=== PATIENT | female | born 1935 | race Caucasian/White ===

== ENCOUNTER 2016-11-04 09:49 | Emergency (ER) | payer MEDICARE ==
[~2016-11-04] VITALS: Ht 170.2 cm; Wt 54.4 kg
[~2016-11-04 09:49] MED LIST: CHOL10003 PO; LISI-334 PO; MEMA10TA PO; SERT100T8 PO
[2016-11-04] MEDS ORDERED: IV NORMAL SALINE 500ML BAG 500 ML IV ONE (11:15)
[2016-11-04] MEDS ORDERED: ONDANSETRON PF 4 MG/2 ML VIAL. IV ONE (11:15)
[2016-11-04 11:17] LABS: BILIRUBIN,URINE NEGATIVE (NEG); GLUCOSE,URINE NEGATIVE (NEG); NITRITE,URINE NEGATIVE (NEG); PROTEIN,URINE 100 mg/dL (NEG-TRACE); UROBILINOGEN,URINE 0.2 mg/dL (0.2 mg/dL)
--- NOTE | 2016-11-04 11:18 | PHYS DOC ---
Past Medical History Past Medical History: Dementia Past Surgical History: Cholecystectomy Alcohol Use: None Drug Use: None Adult General Chief Complaint Chief Complaint: NAUSEA/VOMITING/DIARRHA HPI HPI Patient is a 81 year old female who presents with , and children for evaluation of nausea, vomiting and diarrhea over the past 2 days. She also has fatigue, general weakness, and mild lightheadedness upon standing. She has had nonbloody nonbilious emesis and nonbloody diarrhea. She denies cough, chest pain , headache, vision changes, resting dizziness, dyspnea, abdominal pain, dysuria. She was noted to have 4 Exelon patches on her back upon nursing triage. states he placed fourth one last night and these were sequentially placed over the past 4 nights. He states these were left on because she sometimes gets too agitated for him to pull them off. Review of Systems Review of Systems Constitutional: Denies fever or chills [] Eyes: Denies change in visual acuity, redness, or eye pain [] HENT: Denies nasal congestion or sore throat [] Respiratory: Denies cough or shortness of breath [] Cardiovascular: No additional information not addressed in HPI [] GI: Denies abdominal pain, bloody stools or bloody emesis [] : Denies dysuria or hematuria [] Musculoskeletal: Denies back pain or joint pain [] Integument: Denies rash or skin lesions [] Neurologic: Denies headache, focal weakness or sensory changes [] Endocrine: Denies polyuria or polydipsia [] Current Medications Current Medications Current Medications Medications (Trade) Dose Ordered Sig/Robin Start Time Stop Time Status Last Admin Dose Admin Lisinopril (Prinivil) 20 mg 1X ONCE 11/04/16 11:45 11/04/16 11:46 DC 11/04/16 11:42 20 MG Ondansetron HCl 4 mg 4 mg 1X ONCE 11/04/16 11:15 11/04/16 11:16 DC 11/04/16 11:25 4 MG Sodium Chloride (Iv Sodium Chloride 0.9% 500ml Bag) 500 ml @ 500 mls/hr 1X ONCE 11/04/16 11:15 11/04/16 12:14 DC 11/04/16 11:25 500 MLS/HR Allergies Allergies Allergies Coded Allergies Type Severity Reaction Last Updated Verified No Known Drug Allergies 08/11/16 No Physical Exam Physical Exam Constitutional: Well developed, well nourished, no acute distress, non-toxic appearance. [] HENT: Normocephalic, atraumatic, bilateral external ears normal, oropharynx moist, nose normal. [] Eyes: PERRLA, EOMI. [] Neck: Normal range of motion, supple. [] Cardiovascular:Heart rate regular rhythm [] Lungs & Thorax: Bilateral breath sounds clear to auscultation [] Abdomen: Bowel sounds normal, soft, no tenderness. [] Skin: Warm, dry, no erythema, no rash. [] Back: No tenderness, no CVA tenderness. [] Extremities: No tenderness, ROM intact, no edema. [] Neurologic: Alert and oriented to self and situation, normal motor function, normal sensory function, no focal deficits noted. [] Psychologic: Affect normal, judgement normal, mood normal. [] Current Patient Data Vital Signs Vital Signs Date Time Temp Pulse Resp B/P Pulse Ox O2 Delivery O2 Flow Rate FiO2 11/04/16 13:52 113 217/103 94 11/04/16 11:30 18 11/04/16 10:45 97.9 Room Air 97.9 Lab Values Laboratory Tests Test 11/04/16 10:37 11/04/16 11:00 11/04/16 11:15 Influenza Type A Antigen Negative (NEGATIVE) Influenza Type B Antigen Negative (NEGATIVE) Urine Collection Type Unknown Urine Color Yellow Urine Clarity Clear Urine pH 6.0 Urine Specific [place] 1.020 Urine Protein 100mg/dL (NEG-TRACE) Urine Glucose (UA) Negativemg/dL (NEG) Urine Ketones (Stick) Negativemg/dL (NEG) Urine Blood Negative (NEG) Urine Nitrite Negative (NEG) Urine Bilirubin Negative (NEG) Urine Urobilinogen Dipstick 0.2mg/dL (0.2 mg/dL) Urine Leukocyte Esterase Negative (NEG) Urine RBC Rare/HPF (0-2) Urine WBC 1-4/HPF (0-4) Urine Squamous Epithelial Cells Few/LPF Urine Bacteria Few/HPF (0-FEW) Urine Mucus Mod/LPF White Blood Count 12.1x10^3/uL (4.0-11.0) H Red Blood Count 4.96x10^6/uL (3.50-5.40) Hemoglobin 14.7g/dL (12.0-15.5) Hematocrit 43.3% (36.0-47.0) Mean Corpuscular Volume 87fL (79-100) Mean Corpuscular Hemoglobin 30pg (25-35) Mean Corpuscular Hemoglobin Concent 34g/dL (31-37) Red Cell Distribution Width 14.3% (11.5-14.5) Platelet Count 184x10^3/uL (140-400) Neutrophils (%) (Auto) 87% (31-73) H Lymphocytes (%) (Auto) 9% (24-48) L Monocytes (%) (Auto) 4% (0-9) Eosinophils (%) (Auto) 0% (0-3) Basophils (%) (Auto) 1% (0-3) Neutrophils # (Auto) 10.5x10^3uL (1.8-7.7) H Lymphocytes # (Auto) 1.1x10^3/uL (1.0-4.8) Monocytes # (Auto) 0.5x10^3/uL (0.0-1.1) Eosinophils # (Auto) 0.0x10^3/uL (0.0-0.7) Basophils # (Auto) 0.1x10^3/uL (0.0-0.2) Segmented Neutrophils % 83% (35-66) H Band Neutrophils % 9% (0-9) Lymphocytes % 8% (24-48) L Toxic Granulation Slight Platelet Estimate Adequate (ADEQUATE) Sodium Level 144mmol/L (136-145) Potassium Level 3.5mmol/L (3.5-5.1) Chloride Level 105mmol/L (98-107) Carbon Dioxide Level 29mmol/L (21-32) Anion Gap 10 (6-14) Blood Urea Nitrogen 9mg/dL (7-20) Creatinine 0.9mg/dL (0.6-1.0) Estimated GFR (Cockcroft-Gault) 60.1 Glucose Level 141mg/dL (70-99) H Calcium Level 9.0mg/dL (8.5-10.1) Total Bilirubin 0.6mg/dL (0.2-1.0) Direct Bilirubin 0.1mg/dL (0.0-0.2) Aspartate Amino Transferase (AST) 24U/L (15-37) Alanine Aminotransferase (ALT) 27U/L (14-59) Alkaline Phosphatase 89U/L (46-116) Total Protein 7.6g/dL (6.4-8.2) Albumin 3.7g/dL (3.4-5.0) Lipase 193U/L (73-393) Laboratory Tests 11/04/16 11:15 Laboratory Tests 11/04/16 11:15 Course & Med Decision Making Course & Med Decision Making Pertinent Labs and Imaging studies reviewed. (See chart for details) She is feeling better while here. Workup is unremarkable. She is tolerating oral intake and ambulatory in dept. Discussed importance of removing old medication patches to avoid possible medication overdose. Return precautions given. Pt and family understand and agree with plan. Dragon Disclaimer Dragon Disclaimer This electronic medical record was generated, in whole or in part, using a voice recognition dictation system. Departure Departure Impression: Primary Impression: Nausea vomiting and diarrhea Disposition: 01 HOME, SELF-CARE Condition: IMPROVED Referrals: LUCHO MINER MD (PCP) Patient Instructions: Nausea and Vomiting, [id number] Additional Instructions: Drink liquids to stay hydrated. Follow up with your primary care doctor. Return for any concerns. Dashawn BALLESTEROS MD Nov 04, 2016 11:18
[2016-11-04 11:24] LABS: BASO # 0.1 x10^3/uL (0.0-0.2); BASO % 1 % (0-3); EOS % 0 % (0-3); HEMATOCRIT 43.3 % (36.0-47.0); HEMOGLOBIN 14.7 g/dL (12.0-15.5); LYMPH # 1.1 x10^3/uL (1.0-4.8); LYMPH % 9 % (24-48); MEAN CORPUSCULAR HEMOGLOBIN 30 pg (25-35); MEAN CORPUSCULAR HGB CONC 34 g/dL (31-37); MEAN CORPUSCULAR VOLUME 87 fL (79-100); MONO % 4 % (0-9); NEUT % 87 % (31-73); PLATELET COUNT 184 x10^3/uL (140-400); RED BLOOD COUNT 4.96 x10^6/uL (3.50-5.40); RED CELL DISTRIBUTION WIDTH 14.3 % (11.5-14.5); WHITE BLOOD COUNT 12.1 x10^3/uL (4.0-11.0)
[2016-11-04 11:32] LABS: BACTERIA,URINE FEW /HPF (0-FEW); RBC,URINE RARE /HPF (0-2); SQUAMOUS EPITHELIAL CELL,UR FEW /LPF
[2016-11-04 11:39] LABS: CREATININE 0.9 mg/dL (0.6-1.0); GFR 60.1; POTASSIUM 3.5 mmol/L (3.5-5.1)
[2016-11-04 11:45] LABS: ALBUMIN 3.7 g/dL (3.4-5.0); DIRECT BILIRUBIN 0.1 mg/dL (0.0-0.2); TOTAL BILIRUBIN 0.6 mg/dL (0.2-1.0); TOTAL PROTEIN 7.6 g/dL (6.4-8.2)
[2016-11-04] MEDS ORDERED: LISINOPRIL 10 MG TABLET PO ONE (11:45)
[2016-11-04 12:48] LABS: OBC FLU VALID
[2016-11-04 13:52] VITALS: BP 217/103
[2016-11-04 14:27] LABS: PLT ESTIMATE ADEQUATE (ADEQUATE); TOXIC GRANULATION SLIGHT
== END 2016-11-04 13:53 | disposition home or self-care (01) ==
LOC: ER 09:49
DX: R11.2 Nausea with vomiting, unspecified (principal); R19.7 Diarrhea, unspecified; R53.1 Weakness; R42 Dizziness and giddiness; F03.90 Unspecified dementia, unspecified severity, without behavioral disturbance, psychotic disturbance, mood disturbance, and anxiety; Z90.49 Acquired absence of other specified parts of digestive tract
CPT/HCPCS: 36415; 80048; 80076; 81001; 83690; 85007; 85027; 87804; 96361; 96374; 99284; J2405; J7040

== ENCOUNTER 2019-01-18 09:22 | Inpatient (IN) | payer MEDICARE ==
[~2019-01-18] VITALS: Ht 167.6 cm; Wt 49.0 kg
--- NOTE | 2019-01-18 09:56 | PHYS DOC ---
Past Medical History Past Medical History: Dementia, Hypertension Past Surgical History: Cholecystectomy Alcohol Use: None Drug Use: None Adult General Chief Complaint Chief Complaint: WEAKNESS/GENERALIZED HPI HPI Patient is a 83 year old female with history of dementia who brought in by EMS because of weakness. Patient home caregiver stated she has had increasing generalized weakness for the last 1 week and had 3 falls without loss of consciousness and had right sided weakness that getting worse after she saw her this morning at 0800. Patient did not eat and drink like her usual. Patient has dementia and is alert and oriented 1. Review of Systems Review of Systems Unable to obtain because of dementia Current Medications Current Medications Current Medications Medications (Trade) Dose Ordered Sig/Robin Start Time Stop Time Status Last Admin Dose Admin Ceftriaxone Sodium (Rocephin) 1 gm 1X ONCE 01/18/19 10:30 01/18/19 10:31 DC 01/18/19 10:30 1 GM Sodium Chloride 1,000 ml @ 1,000 mls/hr 1X ONCE 01/18/19 10:30 01/18/19 11:29 DC 01/18/19 10:30 1,000 MLS/HR Allergies Allergies Allergies Coded Allergies Type Severity Reaction Last Updated Verified No Known Drug Allergies 08/11/16 No Physical Exam Physical Exam Constitutional: Mild distress, non-toxic appearance. [] HENT: Normocephalic, atraumatic Eyes: PERRLA, EOMI, conjunctiva normal, no discharge. [] Neck: Normal range of motion, no tenderness, supple, no stridor. [] Cardiovascular:Heart rate regular rhythm, no murmur [] Lungs & Thorax: Bilateral breath sounds clear to auscultation [] Abdomen: Bowel sounds normal, soft, no tenderness, no masses, no pulsatile masses. [] Skin: Warm, dry, no erythema, no rash. [] Back: No tenderness, no CVA tenderness. [] Extremities: Right shoulder old ecchymoses with mild tenderness , no cyanosis, no clubbing, ROM intact, no edema. [] Neurologic: Alert and oriented X 1, normal motor function, normal sensory function, no focal deficits noted. [] Psychologic: Affect depressed Current Patient Data Vital Signs Vital Signs Date Time Temp Pulse Resp B/P (MAP) Pulse Ox O2 Delivery O2 Flow Rate FiO2 01/18/19 10:11 98.3 83 16 186/75 (112) 97 Room Air 98.3 Lab Values Laboratory Tests Test 01/18/19 09:47 01/18/19 10:35 White Blood Count 10.9 x10^3/uL (4.0-11.0) Red Blood Count 4.49 x10^6/uL (3.50-5.40) Hemoglobin 13.6 g/dL (12.0-15.5) Hematocrit 39.8 % (36.0-47.0) Mean Corpuscular Volume 89 fL (79-100) Mean Corpuscular Hemoglobin 30 pg (25-35) Mean Corpuscular Hemoglobin Concent 34 g/dL (31-37) Red Cell Distribution Width 13.9 % (11.5-14.5) Platelet Count 209 x10^3/uL (140-400) Neutrophils (%) (Auto) 92 % (31-73) H Lymphocytes (%) (Auto) 5 % (24-48) L Monocytes (%) (Auto) 3 % (0-9) Eosinophils (%) (Auto) 0 % (0-3) Basophils (%) (Auto) 0 % (0-3) Neutrophils # (Auto) 10.0 x10^3uL (1.8-7.7) H Lymphocytes # (Auto) 0.5 x10^3/uL (1.0-4.8) L Monocytes # (Auto) 0.4 x10^3/uL (0.0-1.1) Eosinophils # (Auto) 0.0 x10^3/uL (0.0-0.7) Basophils # (Auto) 0.0 x10^3/uL (0.0-0.2) Segmented Neutrophils % 92 % (35-66) H Band Neutrophils % 2 % (0-9) Lymphocytes % 4 % (24-48) L Monocytes % 2 % (0-10) Platelet Estimate Adequate (ADEQUATE) Prothrombin Time 13.5 SEC (11.7-14.0) Prothrombin Time INR 1.1 (0.8-1.1) Sodium Level 144 mmol/L (136-145) Potassium Level 3.9 mmol/L (3.5-5.1) Chloride Level 105 mmol/L (98-107) Carbon Dioxide Level 26 mmol/L (21-32) Anion Gap 13 (6-14) Blood Urea Nitrogen 10 mg/dL (7-20) Creatinine 1.2 mg/dL (0.6-1.0) H Estimated GFR (Cockcroft-Gault) 42.9 BUN/Creatinine Ratio 8 (6-20) Glucose Level 189 mg/dL (70-99) H Lactic Acid Level 2.2 mmol/L (0.4-2.0) H Calcium Level 9.1 mg/dL (8.5-10.1) Magnesium Level 2.0 mg/dL (1.8-2.4) Total Bilirubin 0.7 mg/dL (0.2-1.0) Aspartate Amino Transferase (AST) 28 U/L (15-37) Alanine Aminotransferase (ALT) 19 U/L (14-59) Alkaline Phosphatase 74 U/L (46-116) Creatine Kinase 344 U/L (26-192) H Troponin I Quantitative 0.175 ng/mL (0.000-0.055) JS-Pjr-M-Type Natriuretic Peptide 2332 pg/mL (0-449) H Total Protein 6.7 g/dL (6.4-8.2) Albumin 3.7 g/dL (3.4-5.0) Albumin/Globulin Ratio 1.2 (1.0-1.7) Lipase 60 U/L (73-393) L 25-Hydroxy Vitamin D Total 66.8 ng/mL (30-100) Urine Collection Type U cath Urine Color Yellow Urine Clarity Clear Urine pH 6.5 Urine Specific [place] 1.020 Urine Protein 100 mg/dL (NEG-TRACE) Urine Glucose (UA) Negative mg/dL (NEG) Urine Ketones (Stick) Trace mg/dL (NEG) Urine Blood Trace (NEG) Urine Nitrite Negative (NEG) Urine Bilirubin Negative (NEG) Urine Urobilinogen Dipstick 1.0 mg/dL (0.2 mg/dL) Urine Leukocyte Esterase Negative (NEG) Urine RBC Occ /HPF (0-2) Urine WBC 5-10 /HPF (0-4) Urine Amorphous Sediment Present /HPF Urine Bacteria Few /HPF (0-FEW) Urine Hyaline Casts Few /HPF Urine Mucus Mod /LPF Laboratory Tests 01/18/19 09:47 Laboratory Tests 01/18/19 09:47 Microbiology 01/18/19 Blood Culture - Final, Complete NO GROWTH AFTER 5 DAYS EKG EKG EKG interpreted by me. EKG at 1026 showed normal sinus rhythm at rate of 86, normal MN and QT intervals, poor R-wave progress in anterolateral leads, no acute ST and T-wave abnormalities. Radiology/Procedures Radiology/Procedures [][facility] [address] [place] [id number] IMAGING REPORT Signed PATIENT: ANIKA JENNINGS ACCOUNT: [id number] : 1935 LOCATION: ER AGE: 83 SEX: F EXAM STATUS: REG ER ORD. PHYSICIAN: MATHIEU TOURE MD REASON: right-sided weakness PROCEDURE: CHEST AP ONLY Chest radiograph 01/18/2019 9:41 AM INDICATION: Right-sided weakness COMPARISON: None available TECHNIQUE: Portable upright frontal view of the chest is provided. FINDINGS: The cardiomediastinal silhouette is within normal limits. There is trace right pleural effusion. No pulmonary vascular congestion or pneumothorax. Right lung apex is obscured by the neck soft tissues. No definite pneumothorax. Focal sclerosis is identified along the anterior margin of the anterior right seventh rib. No significant osseous abnormality is identified. IMPRESSION: Trace right pleural effusion. There may be adjacent compressive atelectasis versus infiltrate. Electronically signed by: Neda Matias MD (01/18/2019 10:14 AM) [id number] DICTATED and SIGNED BY: NEDA MATIAS MD DATE: 01/18/[address] [id number] IMAGING REPORT Signed PATIENT: ANIKA JENNINGS ACCOUNT: [id number] : 1935 LOCATION: ER AGE: 83 SEX: F EXAM STATUS: REG ER ORD. PHYSICIAN: MATHIEU TOURE MD REASON: right-sided weakness. POOR HISTORIAN PROCEDURE: CT HEAD AND CERVICAL SPINE WO PQRS Compliance Statement: One or more of the following individualized dose reduction techniques were utilized for this examination: 1. Automated exposure control 2. Adjustment of the mA and/or kV according to patient size 3. Use of iterative reconstruction technique CT head and cervical spine without contrast 01/18/2019 9:41 AM INDICATION: Right-sided weakness COMPARISON: None available TECHNIQUE: Multiple axial CT images of the head were obtained from skull base through the vertex without intravenous contrast. Multiple axial CT images of the cervical spine were obtained without intravenous contrast. Coronal and sagittal reformats are provided. FINDINGS: Head: Ventricles, sulci and basal cisterns are prominent compatible with mild generalized cerebral volume loss. There is no hydrocephalus. Lilly-white matter differentiation is normal. There is no acute intracranial hemorrhage. There is no mass, mass effect or midline shift. Posterior fossa is normal in appearance. Visualized portions of the orbits are normal with exception of left lens replacement. Paranasal sinuses are well aerated. Mastoid air cells are well aerated. Scalp and calvaria are normal. Cervical spine: There is minimal retrolisthesis of C3 on C4. Skull base is intact. Craniocervical junction is normal in appearance. Atlantoaxial articulation is normal. Vertebral body heights are maintained without evidence for acute fracture. At C3-C4, there is a posterior disc osteophyte complex with moderate facet arthropathy and mild right uncovertebral joint disease. Mild bilateral neuroforaminal stenosis. No spinal canal stenosis. At C4-C5, there is a posterior disc osteophyte complex with central calcified disc protrusion. Moderate right and mild left facet arthropathy. Mild right uncovertebral joint disease. Mild bilateral neuroforaminal stenosis. No spinal canal stenosis. At C5-C6, there is a posterior disc osteophyte complex with central disc protrusion. Moderate facet arthropathy. Mild uncovertebral joint disease. Moderate bilateral neuroforaminal stenosis. No spinal canal stenosis. There is no prevertebral soft tissue swelling. Left thyroid nodule measures 17 mm. Visualized portions of the lung apices are normal without evidence for suspicious pulmonary nodule or infiltrate. IMPRESSION: 1. No acute intracranial hemorrhage. 2. No acute fracture of the cervical spine. Minimal retrolisthesis of C3 on C4, nonspecific. Mild cervical spondylosis. 3. There is a 17 mm left thyroid nodule. Nonemergent thyroid ultrasound is recommended for further evaluation. Electronically signed by: Neda Matias MD (01/18/2019 10:38 AM) [id number] DICTATED and SIGNED BY: NEDA MATIAS MD DATE: 05/07/19 1038 Course & Med Decision Making Course & Med Decision Making Pertinent Labs and Imaging studies reviewed. (See chart for details) Evaluation of patient in ER showed 83-year-old female patient with history of dementia and increasing generalized weakness and frequent falls brought in with right-sided weakness. Patient did not have focal neuro deficit. CT head did not show acute finding. Patient had elevation of lactic acid and UTI. Patient requiring admission for further evaluation and treatment. Discussed with Dr. [place] who is in agreement with admission. Discussed findings and plan with patient and family, who acknowledge understanding and agreement. Dragon Disclaimer Dragon Disclaimer This electronic medical record was generated, in whole or in part, using a voice recognition dictation system. Departure Departure Impression: Primary Impression: Sepsis Additional Impressions: Weakness Urinary tract infection Elevated troponin I level Frequent falls Renal insufficiency CHF (congestive heart failure) Dementia Elevated blood pressure reading Disposition: ADMITTED INPATIENT (@1111) Admitting Physician: Monica Kapadia (accepted admission at 1110) Condition: IMPROVED Referrals: LUCHO MINER MD (PCP) Scripts Lisinopril (LISINOPRIL) 40 Mg Tablet 40 MG PO DAILY for htn MDD 1, #30 TAB Prov: MONICA KAPADIA MD 01/19/19 Lidocaine (Lidocaine) 1 Each Adh..patch 1 PATCH TD DAILY for pain msk MDD 1, #10 PATCH Prov: MONICA KAPADIA MD 01/19/19 Ascorbic Acid (VITAMIN C) 500 Mg Tablet 500 MG PO DAILY for mvi MDD 1, #30 TAB Prov: MONICA KAPADIA MD 01/19/19 Aspirin (ASPIRIN EC) 81 Mg Tablet. 81 MG PO DAILYWBKFT for primary prevention MDD 1, #60 TAB.SR Prov: MONICA KAPADIA MD 01/19/19 Hydrocodone Bit/Acetaminophen (HYDROCODONE-APAP 5-325 ) 1 Tab Tablet 1 TAB PO PRN Q4HRS PRN for MODERATE PAIN, SEVERE PAIN MDD 1, #20 TAB Prov: MONICA KAPADIA MD 01/19/19 Metoprolol Succinate (METOPROLOL SUCCINATE ( XL )) 25 Mg Tab.er.24h 12.5 MG PO DAILY for htn, svt,.now christina MDD 1, #60 TAB.SR Prov: MONICA KAPADIA MD 01/19/19 Problem Qualifiers Primary Impression: Sepsis Sepsis type: sepsis due to unspecified organism Qualified Codes: A41.9 - Sepsis, unspecified organism Additional Impressions: Urinary tract infection Urinary tract infection type: site unspecified Hematuria presence: without hematuria Qualified Codes: N39.0 - Urinary tract infection, site not specified CHF (congestive heart failure) Heart failure type: unspecified Heart failure chronicity: unspecified Qualified Codes: I50.9 - Heart failure, unspecified Dementia Dementia type: unspecified type Dementia behavioral disturbance: without behavioral disturbance Qualified Codes: F03.90 - Unspecified dementia without behavioral disturbance MATHIEU TOURE MD January 18, 2019 09:56
[2019-01-18 10:04] LABS: BASO % 0 % (0-3); EOS % 0 % (0-3); HEMATOCRIT 39.8 % (36.0-47.0); HEMOGLOBIN 13.6 g/dL (12.0-15.5); LYMPH # 0.5 x10^3/uL (1.0-4.8); LYMPH % 5 % (24-48); MEAN CORPUSCULAR HEMOGLOBIN 30 pg (25-35); MEAN CORPUSCULAR HGB CONC 34 g/dL (31-37); MEAN CORPUSCULAR VOLUME 89 fL (79-100); MONO # 0.4 x10^3/uL (0.0-1.1); MONO % 3 % (0-9); NEUT % 92 % (31-73); PLATELET COUNT 209 x10^3/uL (140-400); RED BLOOD COUNT 4.49 x10^6/uL (3.50-5.40); RED CELL DISTRIBUTION WIDTH 13.9 % (11.5-14.5); WHITE BLOOD COUNT 10.9 x10^3/uL (4.0-11.0)
--- NOTE | 2019-01-18 10:15 | RAD ---
SHOULDER 2+V RIGHT 01/18/2019 9:41 AM INDICATION: Right-sided weakness. Bruising in the right shoulder after fall COMPARISON: None available. TECHNIQUE: 3 views of the right shoulder are provided. FINDINGS: There is no acute fracture or dislocation. Mineralization along the superolateral aspect of the right humeral head may reflect calcific tendinitis. Bone mineralization is within normal limits. Joint spaces are maintained. Regional soft tissues are within normal limits. There is no soft tissue gas or osseous erosion. IMPRESSION: No acute fracture or dislocation. Mineralization along the superolateral aspect of the right humeral head may reflect calcific tendinitis. Electronically signed by: Kamala Britt MD (01/18/2019 10:13 AM) [id number]
[2019-01-18 10:16] LABS: CALCIUM 9.1 mg/dL (8.5-10.1); CREATININE 1.2 mg/dL (0.6-1.0); GFR 42.9; POTASSIUM 3.9 mmol/L (3.5-5.1)
--- NOTE | 2019-01-18 10:17 | RAD ---
Chest radiograph 01/18/2019 9:41 AM INDICATION: Right-sided weakness COMPARISON: None available TECHNIQUE: Portable upright frontal view of the chest is provided. FINDINGS: The cardiomediastinal silhouette is within normal limits. There is trace right pleural effusion. No pulmonary vascular congestion or pneumothorax. Right lung apex is obscured by the neck soft tissues. No definite pneumothorax. Focal sclerosis is identified along the anterior margin of the anterior right seventh rib. No significant osseous abnormality is identified. IMPRESSION: Trace right pleural effusion. There may be adjacent compressive atelectasis versus infiltrate. Electronically signed by: Kamala Britt MD (01/18/2019 10:14 AM) [facility]
[2019-01-18 10:20] LABS: PROTHROMBIN TIME PATIENT 13.5 SEC (11.7-14.0)
[2019-01-18 10:22] LABS: ALBUMIN 3.7 g/dL (3.4-5.0); ALBUMIN/GLOBULIN RATIO 1.2 (1.0-1.7); TOTAL BILIRUBIN 0.7 mg/dL (0.2-1.0); TOTAL PROTEIN 6.7 g/dL (6.4-8.2)
[2019-01-18] MEDS ORDERED: cefTRIAXone IV Push 1 GM VIAL. IVP ONE (10:30)
[2019-01-18] MEDS ORDERED: IV NORMAL SALINE 1000ML BAG 1,000 ML IV ONE (10:30)
--- NOTE | 2019-01-18 10:41 | RAD ---
PQRS Compliance Statement: One or more of the following individualized dose reduction techniques were utilized for this examination: 1. Automated exposure control 2. Adjustment of the mA and/or kV according to patient size 3. Use of iterative reconstruction technique CT head and cervical spine without contrast 01/18/2019 9:41 AM INDICATION: Right-sided weakness COMPARISON: None available TECHNIQUE: Multiple axial CT images of the head were obtained from skull base through the vertex without intravenous contrast. Multiple axial CT images of the cervical spine were obtained without intravenous contrast. Coronal and sagittal reformats are provided. FINDINGS: Head: Ventricles, sulci and basal cisterns are prominent compatible with mild generalized cerebral volume loss. There is no hydrocephalus. Lilly-white matter differentiation is normal. There is no acute intracranial hemorrhage. There is no mass, mass effect or midline shift. Posterior fossa is normal in appearance. Visualized portions of the orbits are normal with exception of left lens replacement. Paranasal sinuses are well aerated. Mastoid air cells are well aerated. Scalp and calvaria are normal. Cervical spine: There is minimal retrolisthesis of C3 on C4. Skull base is intact. Craniocervical junction is normal in appearance. Atlantoaxial articulation is normal. Vertebral body heights are maintained without evidence for acute fracture. At C3-C4, there is a posterior disc osteophyte complex with moderate facet arthropathy and mild right uncovertebral joint disease. Mild bilateral neuroforaminal stenosis. No spinal canal stenosis. At C4-C5, there is a posterior disc osteophyte complex with central calcified disc protrusion. Moderate right and mild left facet arthropathy. Mild right uncovertebral joint disease. Mild bilateral neuroforaminal stenosis. No spinal canal stenosis. At C5-C6, there is a posterior disc osteophyte complex with central disc protrusion. Moderate facet arthropathy. Mild uncovertebral joint disease. Moderate bilateral neuroforaminal stenosis. No spinal canal stenosis. There is no prevertebral soft tissue swelling. Left thyroid nodule measures 17 mm. Visualized portions of the lung apices are normal without evidence for suspicious pulmonary nodule or infiltrate. IMPRESSION: 1. No acute intracranial hemorrhage. 2. No acute fracture of the cervical spine. Minimal retrolisthesis of C3 on C4, nonspecific. Mild cervical spondylosis. 3. There is a 17 mm left thyroid nodule. Nonemergent thyroid ultrasound is recommended for further evaluation. Electronically signed by: Kamala Britt MD (01/18/2019 10:38 AM) [email or web address]
[2019-01-18 10:45] LABS: BILIRUBIN,URINE NEGATIVE (NEG); CLARITY,URINE CLEAR; COLOR,URINE YELLOW; NITRITE,URINE NEGATIVE (NEG); PH,URINE 6.5; PROTEIN,URINE 100 mg/dL (NEG-TRACE)
[2019-01-18 11:01] LABS: HYALINE CASTS, URINE FEW /HPF
[2019-01-18 11:02] LABS: AMORPHOUS SEDIMENT,UR PRESENT /HPF; BACTERIA,URINE FEW /HPF (0-FEW)
[2019-01-18 11:03] LABS: RBC,URINE OCC /HPF (0-2)
[2019-01-18] MEDS: IV NORMAL SALINE 1000ML BAG 1,000 ML IV SCH ×2 (11:30→21:20)
[2019-01-18 11:40] LABS: % BANDS 2 % (0-9); % LYMPHS 4 % (24-48); % MONOS 2 % (0-10); % SEGS 92 % (35-66)
[2019-01-18 11:41] LABS: PLT ESTIMATE ADEQUATE (ADEQUATE)
--- NOTE | 2019-01-18 11:57 | EKG ---
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
[2019-01-18 12:41] VITALS: BP 148/108
--- NOTE | 2019-01-18 13:29 | PDOC1 ---
History and Physical Date of Admission Date of Admission DATE: 01/18/19 TIME: 13:23 Identification/Chief Complaint Chief Complaint Fall frequent at home by 24-hour Hired caregiver Source Source: Caregiver, Chart review, Patient History of Present Illness History of Present Illness 83-year-old female who lives at home and needs 1 person assist and verbal queuing for feeding, they have a hired 24-hour care help,or home health RN who noticed patient to be falling multiple times. Today she was leaning to the right side falling and could not get up after the fall. She has advanced dementia. She might be a DNR/DNI but family at bedside could not verify with me the code status for sure, they will be looking at papers at home. She does have significant osteoporosis based on imaging and per family relay. Shoulder pain but no acute fracture there. Some cervical retrolisthesis and disc bulges but no fracture. CT head shows cerebral atrophy consistent with Alzheimer's dementia. LAbs ok,. Chest x-ray shows maybe atelectasis. Right hip hurts it is sore, not on any blood thinners. Blood pressure on the high side on blood pressure meds. We will check a hip x-ray and go from there. Discussed with family members and RN Past Medical History Cardiovascular: HTN, Hyperlipidemia CENTRAL NERVOUS SYSTEM: Dementia Musculoskeletal: Other (osteoporosis) Past Surgical History Past Surgical History: No pertinent history Family History Family History: Family History Unknown Social History Smoke: No ALCOHOL: none Drugs: None Current Problem List Problem List Problems Medical Problems: (1) CHF (congestive heart failure) Status: Acute (2) Dementia Status: Acute (3) Elevated blood pressure reading Status: Acute (4) Elevated troponin I level Status: Acute (5) Frequent falls Status: Acute (6) Renal insufficiency Status: Acute (7) Urinary tract infection Status: Acute Current Medications Current Medications Current Medications Sodium Chloride 1,000 ml @ 1,000 mls/hr 1X ONCE IV Last administered on 01/18/19at 10:30; Start 01/18/19 at 10:30; Stop 01/18/19 at 11:29; Status DC Ceftriaxone Sodium (Rocephin) 1 gm 1X ONCE IVP Last administered on 01/18/19at 10:30; Start 01/18/19 at 10:30; Stop 01/18/19 at 10:31; Status DC Sodium Chloride 1,000 ml @ 125 mls/hr Q8H IV Last administered on 01/18/19at 11:30; Start 01/18/19 at 11:30; Stop 01/19/19 at 11:29 Clonidine HCl (Catapres) 0.1 mg PRN Q1HR PRN PO HYPERTENSION, SEE COMMENTS; Start 01/18/19 at 13:30; Status UNV Acetaminophen (Tylenol) 500 mg PRN Q6HRS PRN PO MILD PAIN / TEMP; Start 01/18/19 at 13:30; Status UNV Ondansetron HCl (Zofran) 4 mg PRN Q6HRS PRN IV NAUSEA/VOMITING; Start 01/18/19 at 13:30; Status UNV Acetaminophen/ Hydrocodone Bitart (Lortab 5/325) 1 tab PRN Q4HRS PRN PO PAIN; Start 01/18/19 at 13:30; Status UNV Lidocaine (Lidoderm) 1 patch DAILY TD ; Start 01/19/19 at 09:00; Status UNV Miscellaneous (Lidoderm Patch Removal) 1 ea QHS MC ; Start 01/18/19 at 21:00; Status UNV Active Scripts Active Reported Vitamin D3 (Cholecalciferol (Vitamin D3)) 1,000 Unit Tablet 2,000 Unit PO DAILY Lisinopril 20 Mg Tablet 1 Tab PO DAILY Sertraline Hcl 100 Mg Tablet 100 Mg PO DAILY Namenda (Memantine Hcl) 10 Mg Tablet 28 Mg PO DAILY Allergies Allergies: Coded Allergies: No Known Drug Allergies (Unverified , 08/11/16) ROS Review of System limited has dementia Physical Exam General: No acute distress HEENT: Atraumatic, PERRLA, EOMI Lungs: Normal air movement, Other (diminished at the bases but no crackles or wheezing) Heart: S1S2, RRR, no thrills, no rubs, no gallops, no murmurs Cardiovascular: S1, S2 Breasts: Normal, Rt breast nml w/o mass, Lt breast nml w/o mass, Nipples normal Abdomen: Normal bowel sounds, Soft, No tenderness, No hepatosplenomegaly, No masses Rectal Exam: not examined Extremities: Other (rt hip pain and redness) Skin: No rashes, No breakdown, No significant lesion Neuro: Sensation intact, Cranial nerves 3-12 NL, Reflexes 2+ Psych/Mental Status: Mental status NL, Mood NL Vitals Vitals Vital Signs Date Time Temp Pulse Resp B/P (MAP) Pulse Ox O2 Delivery O2 Flow Rate FiO2 01/18/19 12:41 98.9 87 18 148/108 (121) 97 Room Air 98.9 Labs Labs Laboratory Tests Test 01/18/19 09:47 01/18/19 10:35 White Blood Count 10.9 x10^3/uL (4.0-11.0) Red Blood Count 4.49 x10^6/uL (3.50-5.40) Hemoglobin 13.6 g/dL (12.0-15.5) Hematocrit 39.8 % (36.0-47.0) Mean Corpuscular Volume 89 fL (79-100) Mean Corpuscular Hemoglobin 30 pg (25-35) Mean Corpuscular Hemoglobin Concent 34 g/dL (31-37) Red Cell Distribution Width 13.9 % (11.5-14.5) Platelet Count 209 x10^3/uL (140-400) Neutrophils (%) (Auto) 92 % (31-73) Lymphocytes (%) (Auto) 5 % (24-48) Monocytes (%) (Auto) 3 % (0-9) Eosinophils (%) (Auto) 0 % (0-3) Basophils (%) (Auto) 0 % (0-3) Neutrophils # (Auto) 10.0 x10^3uL (1.8-7.7) Lymphocytes # (Auto) 0.5 x10^3/uL (1.0-4.8) Monocytes # (Auto) 0.4 x10^3/uL (0.0-1.1) Eosinophils # (Auto) 0.0 x10^3/uL (0.0-0.7) Basophils # (Auto) 0.0 x10^3/uL (0.0-0.2) Segmented Neutrophils % 92 % (35-66) Band Neutrophils % 2 % (0-9) Lymphocytes % 4 % (24-48) Monocytes % 2 % (0-10) Platelet Estimate Adequate (ADEQUATE) Prothrombin Time 13.5 SEC (11.7-14.0) Prothromb Time International Ratio 1.1 (0.8-1.1) Sodium Level 144 mmol/L (136-145) Potassium Level 3.9 mmol/L (3.5-5.1) Chloride Level 105 mmol/L (98-107) Carbon Dioxide Level 26 mmol/L (21-32) Anion Gap 13 (6-14) Blood Urea Nitrogen 10 mg/dL (7-20) Creatinine 1.2 mg/dL (0.6-1.0) Estimated GFR (Cockcroft-Gault) 42.9 BUN/Creatinine Ratio 8 (6-20) Glucose Level 189 mg/dL (70-99) Lactic Acid Level 2.2 mmol/L (0.4-2.0) Calcium Level 9.1 mg/dL (8.5-10.1) Magnesium Level 2.0 mg/dL (1.8-2.4) Total Bilirubin 0.7 mg/dL (0.2-1.0) Aspartate Amino Transf (AST/SGOT) 28 U/L (15-37) Alanine Aminotransferase (ALT/SGPT) 19 U/L (14-59) Alkaline Phosphatase 74 U/L (46-116) Creatine Kinase 344 U/L (26-192) Troponin I Quantitative 0.175 ng/mL (0.000-0.055) UW-Poi-J-Type Natriuretic Peptide 2332 pg/mL (0-449) Total Protein 6.7 g/dL (6.4-8.2) Albumin 3.7 g/dL (3.4-5.0) Albumin/Globulin Ratio 1.2 (1.0-1.7) Lipase 60 U/L (73-393) Urine Collection Type U cath Urine Color Yellow Urine Clarity Clear Urine pH 6.5 Urine Specific [place] 1.020 Urine Protein 100 mg/dL (NEG-TRACE) Urine Glucose (UA) Negative mg/dL (NEG) Urine Ketones (Stick) Trace mg/dL (NEG) Urine Blood Trace (NEG) Urine Nitrite Negative (NEG) Urine Bilirubin Negative (NEG) Urine Urobilinogen Dipstick 1.0 mg/dL (0.2 mg/dL) Urine Leukocyte Esterase Negative (NEG) Urine RBC Occ /HPF (0-2) Urine WBC 5-10 /HPF (0-4) Urine Amorphous Sediment Present /HPF Urine Bacteria Few /HPF (0-FEW) Urine Hyaline Casts Few /HPF Urine Mucus Mod /LPF Laboratory Tests Test 01/18/19 09:47 01/18/19 10:35 White Blood Count 10.9 x10^3/uL (4.0-11.0) Red Blood Count 4.49 x10^6/uL (3.50-5.40) Hemoglobin 13.6 g/dL (12.0-15.5) Hematocrit 39.8 % (36.0-47.0) Mean Corpuscular Volume 89 fL (79-100) Mean Corpuscular Hemoglobin 30 pg (25-35) Mean Corpuscular Hemoglobin Concent 34 g/dL (31-37) Red Cell Distribution Width 13.9 % (11.5-14.5) Platelet Count 209 x10^3/uL (140-400) Neutrophils (%) (Auto) 92 % (31-73) Lymphocytes (%) (Auto) 5 % (24-48) Monocytes (%) (Auto) 3 % (0-9) Eosinophils (%) (Auto) 0 % (0-3) Basophils (%) (Auto) 0 % (0-3) Neutrophils # (Auto) 10.0 x10^3uL (1.8-7.7) Lymphocytes # (Auto) 0.5 x10^3/uL (1.0-4.8) Monocytes # (Auto) 0.4 x10^3/uL (0.0-1.1) Eosinophils # (Auto) 0.0 x10^3/uL (0.0-0.7) Basophils # (Auto) 0.0 x10^3/uL (0.0-0.2) Segmented Neutrophils % 92 % (35-66) Band Neutrophils % 2 % (0-9) Lymphocytes % 4 % (24-48) Monocytes % 2 % (0-10) Platelet Estimate Adequate (ADEQUATE) Prothrombin Time 13.5 SEC (11.7-14.0) Prothromb Time International Ratio 1.1 (0.8-1.1) Sodium Level 144 mmol/L (136-145) Potassium Level 3.9 mmol/L (3.5-5.1) Chloride Level 105 mmol/L (98-107) Carbon Dioxide Level 26 mmol/L (21-32) Anion Gap 13 (6-14) Blood Urea Nitrogen 10 mg/dL (7-20) Creatinine 1.2 mg/dL (0.6-1.0) Estimated GFR (Cockcroft-Gault) 42.9 BUN/Creatinine Ratio 8 (6-20) Glucose Level 189 mg/dL (70-99) Lactic Acid Level 2.2 mmol/L (0.4-2.0) Calcium Level 9.1 mg/dL (8.5-10.1) Magnesium Level 2.0 mg/dL (1.8-2.4) Total Bilirubin 0.7 mg/dL (0.2-1.0) Aspartate Amino Transf (AST/SGOT) 28 U/L (15-37) Alanine Aminotransferase (ALT/SGPT) 19 U/L (14-59) Alkaline Phosphatase 74 U/L (46-116) Creatine Kinase 344 U/L (26-192) Troponin I Quantitative 0.175 ng/mL (0.000-0.055) MS-Vvf-V-Type Natriuretic Peptide 2332 pg/mL (0-449) Total Protein 6.7 g/dL (6.4-8.2) Albumin 3.7 g/dL (3.4-5.0) Albumin/Globulin Ratio 1.2 (1.0-1.7) Lipase 60 U/L (73-393) Urine Collection Type U cath Urine Color Yellow Urine Clarity Clear Urine pH 6.5 Urine Specific [place] 1.020 Urine Protein 100 mg/dL (NEG-TRACE) Urine Glucose (UA) Negative mg/dL (NEG) Urine Ketones (Stick) Trace mg/dL (NEG) Urine Blood Trace (NEG) Urine Nitrite Negative (NEG) Urine Bilirubin Negative (NEG) Urine Urobilinogen Dipstick 1.0 mg/dL (0.2 mg/dL) Urine Leukocyte Esterase Negative (NEG) Urine RBC Occ /HPF (0-2) Urine WBC 5-10 /HPF (0-4) Urine Amorphous Sediment Present /HPF Urine Bacteria Few /HPF (0-FEW) Urine Hyaline Casts Few /HPF Urine Mucus Mod /LPF VTE Prophylaxis Ordered VTE Prophylaxis Devices: Yes VTE Pharmacological Prophylaxi: Yes Assessment/Plan Assessment/Plan Fall at home Severe osteoporosis Cervical C3-C4 disc bulges retrolisthesis-chronic stable Right shoulder pain with no fracture Hypertension-accelerated on admission but now controlled Hip pain after fall Plan Check vitamin D, check hip x-ray PT OT [employer] eval In the meantime soft mechanical diet I have reconciled home meds Clonidine when necessary Full code for now but might be a DNR/DNI-they want to check papers first at home Discussed with RN high fall risk, high asp risk NO need to check MRI brain, low NIH score dvt ppx KAYLIN VERGARA MD January 18, 2019 13:29
[2019-01-18] MEDS ORDERED: ACETAMINOPHEN 500 MG TABLET PO PRN (13:30)
[2019-01-18] MEDS ORDERED: cloNIDine HCL 0.1 MG TABLET PO PRN ×2 (13:30→16:15)
[2019-01-18] MEDS ORDERED: fentaNYL PF VIAL 100 MCG/2 ML VIAL IV PRN (13:30)
[2019-01-18] MEDS ORDERED: ONDANSETRON PF 4 MG/2 ML VIAL. IV PRN (13:30)
[2019-01-18] MEDS ORDERED: HYDROcodone/APAP 5/325MG 1 TAB TABLET PO PRN (13:30)
[2019-01-18] MEDS: CHOLECALCIFEROL (VITAMIN D3) 1,000 UNIT TABLET PO SCH (15:30)
[2019-01-18] MEDS: LISINOPRIL 20 MG TABLET PO SCH (15:30)
[2019-01-18] MEDS: SERTRALINE 50 MG TABLET. PO SCH (15:30)
[2019-01-18] MEDS: LIDOCAINE (700MG/PATCH) PATCH. TD SCH (15:31)
[2019-01-18] MEDS: ENOXAPARIN 30 MG/0.3 ML SYRINGE. SQ SCH (15:36)
--- NOTE | 2019-01-18 15:45 | NUR ---
BP 200/81, HR 94. Pt also had a brief run of SVT with a heart rate in the 140's. Notified Dr. Kapadia, orders received for PRN medications and a cardiology consult. Notified PHI Mcrae with cardiology. Will continue to monitor. Addendum: 01/18/19 at 1746 by MILES SANCHEZ RN Pt current BP 150/56 HR 75.
--- NOTE | 2019-01-18 15:57 | NUR ---
Wound Care Pt seen for wound care consultation re: a R elbow skin tear. Pt confused, attempting to get out of bed to use the bathroom, but pt has already had an incontinent episode of bowel and bladder. Pt cleaned, pericare completed, calazime cream applied, skin intact. Pt has a reddened area of swelling and open/intact blisters over R hip, possibly from pressure from laying on this area, as family stated pt fell on the carpet at home. Wounds had already been measured and photographed a few hours earlier by SAURABH Black. R hip wound dressed with Xeroform gauze and a large foam dressing, change every 3-4 days. R elbow skin tear reddened and bruised, area dressed with the same as R hip. Pt transferred onto P500 bed at this time and repositioned onto L side with pillows, no other wounds noted on full skin inspection. Daughter at bedside, will continue to follow for wound care needs.
--- NOTE | 2019-01-18 16:00 | NUR ---
This RN confirmed with patient daughter, Tawana, and Lefty, that patient is a DNR/DNI. Notified Dr. Kapadia and received orders to switch code status in computer.
[2019-01-18] MEDS ORDERED: LABETALOL 20 MG/4 ML DISP.SYRIN. IVP PRN (16:30)
--- NOTE | 2019-01-18 16:33 | PDOC2 ---
CARDIAC CONSULT DATE OF CONSULT Date of Consult DATE: 01/18/19 TIME: 16:25 REASON FOR CONSULT Reason for Consult: SVT. uncontrolled HTN REFERRING PHYSICIAN Referring Physician: Steffi SOURCE Source: Caregiver (daughter), Chart review, Patient HISTORY OF PRESENT ILLNESS HISTORY OF PRESENT ILLNESS This is an 83 yo female admitted for increasing weakness and multiple falls. Per staff no noted episodes of syncope and increasing dizziness. She has significant debility with severe osteoporosis and having right hip and 2 person max assist. No noted chest pain or SOA. She is being turned by radiology for images and is complaining of pain. Baseline chao she is noted with 1 person assist and receives home health and and receives consistent 6-8 hours daily care and at night just the . No known arrhythmias or CAD or CVA. Her falls is mostly from not getting what she wants and getting irritable that she end uip walking on her own with what was described by her daughter as staggering. Again no cardiac symptoms. She has a walker but contiues to fail to use it. PAST MEDICAL HISTORY Cardiovascular: HTN, Hyperlipidemia Pulmonary: No pertinent hx CENTRAL NERVOUS SYSTEM: Dementia GI: No pertinent hx Heme/Onc: No pertinent hx Hepatobiliary: No pertinent hx Psych: Anxiety Musculoskeletal: Osteoarthritis Rheumatologic: No pertinent hx Infectious disease: No pertinent hx ENT: No pertinent hx Renal/: Urinary Incontinence Endocrine: No pertinent hx, Osteoporosis Dermatology: No pertinent hx PAST SURGICAL HISTORY Past Surgical History: Cholecystectomy, Total hip replacement (left) FAMILY HISTORY Family History noncontributory to age SOCIAL HISTORY Smoke: No ALCOHOL: none Drugs: None Lives: with Family CURRENT MEDICATIONS CURRENT MEDICATIONS Current Medications Medications (Trade) Dose Ordered Sig/Robin Route PRN Reason Start Time Stop Time Status Last Admin Dose Admin Sodium Chloride 1,000 ml @ 1,000 mls/hr 1X ONCE IV 01/18/19 10:30 01/18/19 11:29 DC 01/18/19 10:30 Ceftriaxone Sodium (Rocephin) 1 gm 1X ONCE IVP 01/18/19 10:30 01/18/19 10:31 DC 01/18/19 10:30 Sodium Chloride 1,000 ml @ 125 mls/hr Q8H IV 01/18/19 11:30 01/19/19 11:29 01/18/19 11:30 Clonidine HCl (Catapres) 0.1 mg PRN Q1HR PRN PO HYPERTENSION, SEE COMMENTS 5/7/19 13:30 01/18/19 16:15 Acetaminophen/ Hydrocodone Bitart (Lortab 5325) 1 tab PRN Q4HRS PRN PO MODERATE PAIN, SEVERE PAIN 01/18/19 13:30 01/18/19 16:15 Lidocaine (Lidoderm) 1 patch DAILY TD 01/18/19 14:00 01/18/19 15:31 Vitamin D (Vitamin D3) 2,000 unit DAILY PO 01/18/19 14:00 01/18/19 15:30 Lisinopril (Prinivil) 20 mg DAILY PO 01/18/19 14:00 01/18/19 15:30 Sertraline HCl (Zoloft) 100 mg DAILY PO 01/18/19 14:00 01/18/19 15:30 Enoxaparin Sodium (Lovenox 30mg Syringe) 30 mg Q24H SQ 01/18/19 14:00 01/18/19 15:36 ALLERGIES ALLERGIES: Coded Allergies: No Known Drug Allergies (Unverified , 08/11/16) ROS Review of System limited PHYSICAL EXAM General: Alert, Oriented X3, Cooperative, No acute distress HEENT: Atraumatic, Mucous membr. moist/pink Lungs: Other (diminished bases) Heart: Regular rate (SR), Normal S1, Normal S2, Other (2/6 systolic murmur to LLS border) Abdomen: Soft, No tenderness Extremities: No cyanosis, No edema Skin: No breakdown, No significant lesion Neuro: Normal speech, Sensation intact Psych/Mental Status: Other (flat affect) MUSCULOSKELETAL: Osteoarthritic changes both hands VITALS VITALS Vital Signs Date Time Temp Pulse Resp B/P (MAP) Pulse Ox O2 Delivery O2 Flow Rate FiO2 01/18/19 16:15 94 200/81 01/18/19 13:17 Room Air 01/18/19 12:41 98.9 18 97 98.9 LABS Lab: Laboratory Tests Test 01/18/19 09:47 01/18/19 10:35 01/18/19 13:40 White Blood Count 10.9 x10^3/uL (4.0-11.0) Red Blood Count 4.49 x10^6/uL (3.50-5.40) Hemoglobin 13.6 g/dL (12.0-15.5) Hematocrit 39.8 % (36.0-47.0) Mean Corpuscular Volume 89 fL (79-100) Mean Corpuscular Hemoglobin 30 pg (25-35) Mean Corpuscular Hemoglobin Concent 34 g/dL (31-37) Red Cell Distribution Width 13.9 % (11.5-14.5) Platelet Count 209 x10^3/uL (140-400) Neutrophils (%) (Auto) 92 % (31-73) Lymphocytes (%) (Auto) 5 % (24-48) Monocytes (%) (Auto) 3 % (0-9) Eosinophils (%) (Auto) 0 % (0-3) Basophils (%) (Auto) 0 % (0-3) Neutrophils # (Auto) 10.0 x10^3uL (1.8-7.7) Lymphocytes # (Auto) 0.5 x10^3/uL (1.0-4.8) Monocytes # (Auto) 0.4 x10^3/uL (0.0-1.1) Eosinophils # (Auto) 0.0 x10^3/uL (0.0-0.7) Basophils # (Auto) 0.0 x10^3/uL (0.0-0.2) Segmented Neutrophils % 92 % (35-66) Band Neutrophils % 2 % (0-9) Lymphocytes % 4 % (24-48) Monocytes % 2 % (0-10) Platelet Estimate Adequate (ADEQUATE) Prothrombin Time 13.5 SEC (11.7-14.0) Prothromb Time International Ratio 1.1 (0.8-1.1) Sodium Level 144 mmol/L (136-145) Potassium Level 3.9 mmol/L (3.5-5.1) Chloride Level 105 mmol/L (98-107) Carbon Dioxide Level 26 mmol/L (21-32) Anion Gap 13 (6-14) Blood Urea Nitrogen 10 mg/dL (7-20) Creatinine 1.2 mg/dL (0.6-1.0) Estimated GFR (Cockcroft-Gault) 42.9 BUN/Creatinine Ratio 8 (6-20) Glucose Level 189 mg/dL (70-99) Lactic Acid Level 2.2 mmol/L (0.4-2.0) 2.0 mmol/L (0.4-2.0) Calcium Level 9.1 mg/dL (8.5-10.1) Magnesium Level 2.0 mg/dL (1.8-2.4) Total Bilirubin 0.7 mg/dL (0.2-1.0) Aspartate Amino Transf (AST/SGOT) 28 U/L (15-37) Alanine Aminotransferase (ALT/SGPT) 19 U/L (14-59) Alkaline Phosphatase 74 U/L (46-116) Creatine Kinase 344 U/L (26-192) Troponin I Quantitative 0.175 ng/mL (0.000-0.055) 0.136 ng/mL (0.000-0.055) YG-Pfo-M-Type Natriuretic Peptide 2332 pg/mL (0-449) Total Protein 6.7 g/dL (6.4-8.2) Albumin 3.7 g/dL (3.4-5.0) Albumin/Globulin Ratio 1.2 (1.0-1.7) Lipase 60 U/L (73-393) 25-Hydroxy Vitamin D Total 66.8 ng/mL (30-100) Urine Collection Type U cath Urine Color Yellow Urine Clarity Clear Urine pH 6.5 Urine Specific [place] 1.020 Urine Protein 100 mg/dL (NEG-TRACE) Urine Glucose (UA) Negative mg/dL (NEG) Urine Ketones (Stick) Trace mg/dL (NEG) Urine Blood Trace (NEG) Urine Nitrite Negative (NEG) Urine Bilirubin Negative (NEG) Urine Urobilinogen Dipstick 1.0 mg/dL (0.2 mg/dL) Urine Leukocyte Esterase Negative (NEG) Urine RBC Occ /HPF (0-2) Urine WBC 5-10 /HPF (0-4) Urine Amorphous Sediment Present /HPF Urine Bacteria Few /HPF (0-FEW) Urine Hyaline Casts Few /HPF Urine Mucus Mod /LPF ASSESSMENT/PLAN ASSESSMENT/PLAN 1. PSVT: narrow complex. New finding, multifactorial as below. 2. Accelerated HTN 3. Elevated trop: peaked at 0.17, EKG SR without acute ST-T wave changes. Freeman spect type 2 demand mediated with falls, dehydration, SVT 4. Weakness with multiple falls likely more from ataxia not arrhythmia: No known syncopal spells. hip imaging pending so far. 5. Thyroid nodule: incidental finding per CT 6. Alzheimers dementia: possibly advanced Recommendations 1. Start on metoprolol tartrate 25 mg po bid. Labetolol IV PRN. Possibly d ehydrated. IVF 2. ASA. TTE. TSH, lipids. 3. Supportive and conservative care. DNR per daughter HERMAN FLORIAN PHILANTHROPY OFFICER January 18, 2019 16:33
--- NOTE | 2019-01-18 16:59 | RAD ---
Right hip, 2 views, 01/18/2019: HISTORY: Hip pain, previous fall The bony structures are demineralized. There is moderate narrowing of the right hip joint with mild marginal spurring. No fracture or dislocation is identified. The periarticular soft tissues are unremarkable. IMPRESSION: 1. Demineralization. 2. Moderate degenerative change at the right hip joint. Electronically signed by: Maury Floyd MD (01/18/2019 4:56 PM) [facility]
[2019-01-18] MEDS ORDERED: METOPROLOL TART IMMED RELEASE 25 MG TABLET. PO ONE (17:00)
[2019-01-18] MEDS: ASPIRIN ENTERIC COATED 325 MG TABLET.DR. PO ONE ×2 (17:03→17:11)
[2019-01-18] MEDS ORDERED: ASPIRIN CHEWABLE 81 MG TABLET. PO ONE (17:15)
[2019-01-18 17:45] VITALS: BP 150/56
[2019-01-18] MEDS: METOPROLOL TART IMMED RELEASE 25 MG TABLET. PO SCH (21:00)
[2019-01-18] MEDS ORDERED: PATCH REMOVAL. MC SCH (21:00)
[2019-01-18] MEDS: MEMANTINE 10 MG TABLET. PO SCH (21:20)
[2019-01-18 23:18] VITALS: BP 133/64
[2019-01-19 03:29] VITALS: BP 136/66
[2019-01-19 04:17] LABS: CHOLESTEROL/HDL RATIO 3.8
[2019-01-19 07:00] VITALS: BP 138/58
[2019-01-19] MEDS ORDERED: ASPIRIN ENTERIC COATED 81 MG TABLET.DR. PO SCH (08:00)
[2019-01-19] MEDS: METOPROLOL TART IMMED RELEASE 25 MG TABLET. PO SCH (08:17)
--- NOTE | 2019-01-19 08:22 | NUR ---
SW following pt for anticipated dc needs. Chart reviewed. Pt lives at home with spouse. PT/OT pending. SW will await for PT/OT recommendation to assess skilled needs. Will continue to follow.
[2019-01-19] MEDS: LIDOCAINE (700MG/PATCH) PATCH. TD SCH (08:59)
[2019-01-19] MEDS: IV NORMAL SALINE 1000ML BAG 1,000 ML IV SCH (08:59)
[2019-01-19] MEDS: CHOLECALCIFEROL (VITAMIN D3) 1,000 UNIT TABLET PO SCH (08:59)
[2019-01-19] MEDS: LISINOPRIL 20 MG TABLET PO SCH (09:00)
[2019-01-19] MEDS: SERTRALINE 50 MG TABLET. PO SCH (09:01)
[2019-01-19] MEDS: MEMANTINE 10 MG TABLET. PO SCH (09:01)
--- NOTE | 2019-01-19 10:18 | CARD ---
MR#: [id number] Date of Study: 01/19/2019 Ordering Physician: HERMAN FLORIAN, Referring Physician: KAYLIN VERGARA Tech: Sabine Parks [facility] APPROVED REPORT EXAM: Two-dimensional and M-mode echocardiogram with Doppler and color Doppler. Other Information Quality : Good INDICATION Hypertension/HCVD 2D DIMENSIONS RVDd2.5 (2.9-3.5cm)Left Atrium(2D)2.9 (1.6-4.0cm) IVSd0.7 (0.7-1.1cm)Aortic Root(2D)2.7 (2.0-3.7cm) LVDd3.6 (3.9-5.9cm)LVOT Diameter2.0 (1.8-2.4cm) PWd0.7 (0.7-1.1cm)LVDs2.8 (2.5-4.0cm) FS (%) 27.0 %SV27.1 ml LVEF(%)55.0 (>50%) Aortic Valve AoV Peak Anival.98.7cm/sAoV VTI22.3cm AO Peak GR.3.9mmHgLVOT VTI 22.69cm AO Mean GR.2mmHgAVA (VTI)3.30cm2 AI P 1/2 [id number] Mitral Valve MV E Yeppffji53.4cm/sMV DECEL [id number] MV A Skvzxdnf66.1cm/sE/A Ratio1.9 TDI Lateral E' P. V7.72cm/sMedial E' P. V6.31cm/s E/Lateral E'10.9E/Medial E'13.4 Tricuspid Valve TR P. Ftfewdcz799su/sRAP [id number] TR Peak Gr.90jdAgOKQH39njZq Pulmonary Vein S1 Mabzvmme89.5cm/sS2 Owmcyauh30.16cm/s D2 Jdqijrlc68.2cm/s LEFT VENTRICLE The left ventricle is normal size. There is normal left ventricular wall thickness. The left ventricu lar systolic function is normal. The Ejection Fraction is 55-60%. There is normal LV segmental wall m otion. RIGHT VENTRICLE The right ventricle is normal size. The right ventricular systolic function is normal. ATRIA The left atrium size is normal. The right atrium size is normal. The interatrial septum is intact wit h no evidence for an atrial septal defect or patent foramen ovale as noted on 2-D or Doppler imaging. AORTIC VALVE The aortic valve is calcified but opens well. Doppler and Color Flow revealed mild aortic regurgitati on. There is no significant aortic valvular stenosis. MITRAL VALVE The mitral valve is calcified but opens well. There is no evidence of mitral valve prolapse. There is no mitral valve stenosis. Doppler and Color-flow revealed trace mitral regurgitation. TRICUSPID VALVE The tricuspid valve is normal in structure and function. Doppler and Color Flow revealed no tricuspid valve regurgitation noted. There is no tricuspid valve stenosis. PULMONIC VALVE The pulmonic valve is not well visualized. Doppler and Color Flow revealed no pulmonic valvular regur gitation. There is no pulmonic valvular stenosis. GREAT VESSELS The aortic root is normal in size. The ascending aorta is not well seen. The IVC is dilated and colla pses <50% with inspiration. PERICARDIAL EFFUSION There is no evidence of significant pericardial effusion. Critical Notification Critical Value: No <Conclusion> The left ventricular systolic function is normal. The Ejection Fraction is 55-60%. There is normal LV segmental wall motion. Mild aortic regurgitation. Trace mitral regurgitation. There is no evidence of significant pericardial effusion. Signed by : Asad Tran, Electronically Approved : 01/19/2019 10:18:08
[2019-01-19 11:00] VITALS: BP 187/60
[2019-01-19] MEDS ORDERED: ASCORBIC ACID 500 MG TABLET PO SCH (11:30)
[2019-01-19] MEDS ORDERED: MULTIVITAMIN with MINERAL TABLET. PO SCH (11:30)
--- NOTE | 2019-01-19 12:02 | PDOC ---
PROGRESS NOTES Chief Complaint Chief Complaint Fall at home Severe osteoporosis SVT 01/18/19, spont converted with no intervention Cervical C3-C4 disc bulges retrolisthesis-chronic stable Right shoulder pain with no fracture Hypertension-accelerated on admission but now controlled Hip pain after fall Normal vitamin D levels History of Present Illness History of Present Illness She has no complaints She is very weak at bedside and is agreeable to SNU PT OT still pending Cards got involved because of SVT as high as 180s yesterday, asymptomatic, came back to normal sinus rhythm Echo: The left ventricular systolic function is normal. The Ejection Fraction is 55-60%. There is normal LV segmental wall motion. Mild aortic regurgitation. Trace mitral regurgitation. There is no evidence of significant pericardial effusion. Vitamin D levels normal Troponin 0.1 then 0.19-no chest pain Vital signs 180 systolic, heart rate 100s at rest Plan Started on beta sandy scheduled by cardiology-we'll wait for further recs if need further increase in dose Patient is a DNR Social work consult for SNU Otherwise supportive meds/care High fall risk, high aspiration risk Vitals Vitals Vital Signs Date Time Temp Pulse Resp B/P (MAP) Pulse Ox O2 Delivery O2 Flow Rate FiO2 01/19/19 11:00 98.0 75 16 187/60 (102) 97 Room Air 98.0 Physical Exam General: Alert, Oriented X3, Cooperative, No acute distress Heart: Regular rate, Normal S1, Normal S2, Other Abdomen: Soft, No tenderness Extremities: No cyanosis, No edema Skin: No breakdown, No significant lesion Labs LABS Laboratory Tests Test 01/18/19 13:40 01/18/19 17:35 01/19/19 03:15 Lactic Acid Level 2.0 mmol/L (0.4-2.0) Troponin I Quantitative 0.136 ng/mL (0.000-0.055) 0.191 ng/mL (0.000-0.055) Thyroid Stimulating Hormone (TSH) 0.687 uIU/mL (0.358-3.74) Triglycerides Level 58 mg/dL (0-150) Cholesterol Level 192 mg/dL (0-200) LDL Cholesterol, Calculated 129 mg/dL (0-100) VLDL Cholesterol, Calculated 12 mg/dL (0-40) Non-HDL Cholesterol Calculated 141 mg/dL (0-129) HDL Cholesterol 51 mg/dL (40-60) Cholesterol/HDL Ratio 3.8 Review of Systems Review of Systems Dementia, limited ROS Assessment and Plan Assessmemt and Plan Problems Medical Problems: (1) CHF (congestive heart failure) Status: Acute (2) Dementia Status: Acute (3) Elevated blood pressure reading Status: Acute (4) Elevated troponin I level Status: Acute (5) Frequent falls Status: Acute (6) Renal insufficiency Status: Acute (7) Urinary tract infection Status: Acute Comment Review of Relevant I have reviewed the following items ivana (where applicable) has been applied. Labs Laboratory Tests Test 01/18/19 09:47 01/18/19 10:35 01/18/19 13:40 01/18/19 17:35 White Blood Count 10.9 x10^3/uL (4.0-11.0) Red Blood Count 4.49 x10^6/uL (3.50-5.40) Hemoglobin 13.6 g/dL (12.0-15.5) Hematocrit 39.8 % (36.0-47.0) Mean Corpuscular Volume 89 fL (79-100) Mean Corpuscular Hemoglobin 30 pg (25-35) Mean Corpuscular Hemoglobin Concent 34 g/dL (31-37) Red Cell Distribution Width 13.9 % (11.5-14.5) Platelet Count 209 x10^3/uL (140-400) Neutrophils (%) (Auto) 92 % (31-73) Lymphocytes (%) (Auto) 5 % (24-48) Monocytes (%) (Auto) 3 % (0-9) Eosinophils (%) (Auto) 0 % (0-3) Basophils (%) (Auto) 0 % (0-3) Neutrophils # (Auto) 10.0 x10^3uL (1.8-7.7) Lymphocytes # (Auto) 0.5 x10^3/uL (1.0-4.8) Monocytes # (Auto) 0.4 x10^3/uL (0.0-1.1) Eosinophils # (Auto) 0.0 x10^3/uL (0.0-0.7) Basophils # (Auto) 0.0 x10^3/uL (0.0-0.2) Segmented Neutrophils % 92 % (35-66) Band Neutrophils % 2 % (0-9) Lymphocytes % 4 % (24-48) Monocytes % 2 % (0-10) Platelet Estimate Adequate (ADEQUATE) Prothrombin Time 13.5 SEC (11.7-14.0) Prothromb Time International Ratio 1.1 (0.8-1.1) Sodium Level 144 mmol/L (136-145) Potassium Level 3.9 mmol/L (3.5-5.1) Chloride Level 105 mmol/L (98-107) Carbon Dioxide Level 26 mmol/L (21-32) Anion Gap 13 (6-14) Blood Urea Nitrogen 10 mg/dL (7-20) Creatinine 1.2 mg/dL (0.6-1.0) Estimated GFR (Cockcroft-Gault) 42.9 BUN/Creatinine Ratio 8 (6-20) Glucose Level 189 mg/dL (70-99) Lactic Acid Level 2.2 mmol/L (0.4-2.0) 2.0 mmol/L (0.4-2.0) Calcium Level 9.1 mg/dL (8.5-10.1) Magnesium Level 2.0 mg/dL (1.8-2.4) Total Bilirubin 0.7 mg/dL (0.2-1.0) Aspartate Amino Transf (AST/SGOT) 28 U/L (15-37) Alanine Aminotransferase (ALT/SGPT) 19 U/L (14-59) Alkaline Phosphatase 74 U/L (46-116) Creatine Kinase 344 U/L (26-192) Troponin I Quantitative 0.175 ng/mL (0.000-0.055) 0.136 ng/mL (0.000-0.055) 0.191 ng/mL (0.000-0.055) YI-Yxk-A-Type Natriuretic Peptide 2332 pg/mL (0-449) Total Protein 6.7 g/dL (6.4-8.2) Albumin 3.7 g/dL (3.4-5.0) Albumin/Globulin Ratio 1.2 (1.0-1.7) Lipase 60 U/L (73-393) 25-Hydroxy Vitamin D Total 66.8 ng/mL (30-100) Urine Collection Type U cath Urine Color Yellow Urine Clarity Clear Urine pH 6.5 Urine Specific [place] 1.020 Urine Protein 100 mg/dL (NEG-TRACE) Urine Glucose (UA) Negative mg/dL (NEG) Urine Ketones (Stick) Trace mg/dL (NEG) Urine Blood Trace (NEG) Urine Nitrite Negative (NEG) Urine Bilirubin Negative (NEG) Urine Urobilinogen Dipstick 1.0 mg/dL (0.2 mg/dL) Urine Leukocyte Esterase Negative (NEG) Urine RBC Occ /HPF (0-2) Urine WBC 5-10 /HPF (0-4) Urine Amorphous Sediment Present /HPF Urine Bacteria Few /HPF (0-FEW) Urine Hyaline Casts Few /HPF Urine Mucus Mod /LPF Thyroid Stimulating Hormone (TSH) 0.687 uIU/mL (0.358-3.74) Test 01/19/19 03:15 Triglycerides Level 58 mg/dL (0-150) Cholesterol Level 192 mg/dL (0-200) LDL Cholesterol, Calculated 129 mg/dL (0-100) VLDL Cholesterol, Calculated 12 mg/dL (0-40) Non-HDL Cholesterol Calculated 141 mg/dL (0-129) HDL Cholesterol 51 mg/dL (40-60) Cholesterol/HDL Ratio 3.8 Laboratory Tests Test 01/18/19 13:40 01/18/19 17:35 01/19/19 03:15 Lactic Acid Level 2.0 mmol/L (0.4-2.0) Troponin I Quantitative 0.136 ng/mL (0.000-0.055) 0.191 ng/mL (0.000-0.055) Thyroid Stimulating Hormone (TSH) 0.687 uIU/mL (0.358-3.74) Triglycerides Level 58 mg/dL (0-150) Cholesterol Level 192 mg/dL (0-200) LDL Cholesterol, Calculated 129 mg/dL (0-100) VLDL Cholesterol, Calculated 12 mg/dL (0-40) Non-HDL Cholesterol Calculated 141 mg/dL (0-129) HDL Cholesterol 51 mg/dL (40-60) Cholesterol/HDL Ratio 3.8 Microbiology 01/18/19 Blood Culture - Preliminary, Resulted NO GROWTH AFTER 1 DAY Medications Current Medications Sodium Chloride 1,000 ml @ 1,000 mls/hr 1X ONCE IV Last administered on 01/18/19at 10:30; Start 01/18/19 at 10:30; Stop 01/18/19 at 11:29; Status DC Ceftriaxone Sodium (Rocephin) 1 gm 1X ONCE IVP Last administered on 01/18/19 10:30; Start 01/18/19 at 10:30; Stop 01/18/19 at 10:31; Status DC Sodium Chloride 1,000 ml @ 125 mls/hr Q8H IV Last administered on 01/19/19 08:59; Start 01/18/19 at 11:30; Stop 01/19/19 at 11:29; Status DC Clonidine HCl (Catapres) 0.1 mg PRN Q1HR PRN PO HYPERTENSION, SEE COMMENTS Last administered on 01/18/19 16:15; Start 01/18/19 at 13:30 Acetaminophen (Tylenol) 500 mg PRN Q6HRS PRN PO MILD PAIN / TEMP; Start 01/18/19 at 13:30 Ondansetron HCl (Zofran) 4 mg PRN Q6HRS PRN IV NAUSEA/VOMITING; Start 01/18/19 at 13:30 Acetaminophen/ Hydrocodone Bitart (Lortab 5/325) 1 tab PRN Q4HRS PRN PO M ODERATE PAIN, SEVERE PAIN Last administered on 01/18/19 16:15; Start 01/18/19 at 13:30 Lidocaine (Lidoderm) 1 patch DAILY TD Last administered on 01/19/19 08:59; Start 01/18/19 at 14:00 Miscellaneous (Lidoderm Patch Removal) 1 ea QHS ; Start 01/18/19 at 21:00 Vitamin D (Vitamin D3) 2,000 unit DAILY PO Last administered on 01/19/19 08:59; Start 01/18/19 at 14:00 Lisinopril (Prinivil) 20 mg DAILY PO Last administered on 01/19/19 09:00; Start 01/18/19 at 14:00 Memantine (Namenda) 10 mg BID PO Last administered on 01/19/19 09:01; Start 01/18/19 at 21:00 Sertraline HCl (Zoloft) 100 mg DAILY PO Last administered on 01/19/19 09:01; Start 01/18/19 at 14:00 Enoxaparin Sodium (Lovenox 30mg Syringe) 30 mg Q24H SQ Last administered on 01/18/19 15:36; Start 01/18/19 at 14:00 Fentanyl Citrate (Fentanyl 2ml Vial) 25 mcg PRN Q2HR PRN IV PAIN; Start 01/18/19 at 13:30 Clonidine HCl (Catapres) 0.1 mg PRN Q1HR PRN PO HYPERTENSION, SEE COMMENTS; Start 01/18/19 at 16:15; Status UNV Metoprolol Tartrate (Lopressor) 25 mg BID PO ; Start 01/18/19 at 21:00 Metoprolol Tartrate (Lopressor) 25 mg 1X ONCE PO Last administered on 01/18/19at 17:03; Start 01/18/19 at 17:00; Stop 01/18/19 at 17:01; Status DC Labetalol HCl (Normodyne Iv Push) 20 mg PRN Q2HR PRN IVP HYPERTENSION, SEE COMMENTS; Start 01/18/19 at 16:30 Aspirin (Ecotrin) 325 mg 1X ONCE PO Last administered on 01/18/19at 17:11; Start 01/18/19 at 17:00; Stop 01/18/19 at 17:01; Status DC Aspirin (Ecotrin) 81 mg DAILYWBKFT PO Last administered on 01/19/19at 08:59; Start 01/19/19 at 08:00 Aspirin (Children'S Aspirin) 324 mg 1X ONCE PO ; Start 01/18/19 at 17:15; Stop 01/18/19 at 17:16; Status DC Ascorbic Acid (Vitamin C) 500 mg DAILY PO ; Start 01/19/19 at 11:30 Multivitamins (Thera M Plus) 1 tab DAILY PO ; Start 01/19/19 at 11:30 Active Scripts Active Reported Vitamin D3 (Cholecalciferol (Vitamin D3)) 1,000 Unit Tablet 2,000 Unit PO DAILY Lisinopril 20 Mg Tablet 1 Tab PO DAILY Sertraline Hcl 100 Mg Tablet 100 Mg PO DAILY Namenda (Memantine Hcl) 10 Mg Tablet 28 Mg PO DAILY Vitals/I & O Vital Sign - Last 24 Hours 01/18/19 01/18/19 01/18/19 01/18/19 12:41 13:17 15:30 15:30 Temp 98.9 98.7 98.9 98.7 Pulse 87 87 Resp 18 18 B/P (MAP) 148/108 (121) 148/108 Pulse Ox 97 95 O2 Delivery Room Air Room Air Room Air 01/18/19 01/18/19 01/18/19 01/18/19 16:15 17:03 17:45 20:00 Pulse 94 94 75 B/P (MAP) 200/81 200/81 150/56 (87) O2 Delivery Room Air 01/18/19 01/18/19 01/19/19 01/19/19 21:00 23:18 03:29 07:00 Temp 98.2 98.1 97.9 98.2 98.1 97.9 Pulse 47 67 72 64 Resp 18 18 16 B/P (MAP) 133/64 (87) 136/66 (89) 138/58 (84) Pulse Ox 95 95 97 O2 Delivery Room Air Room Air Room Air 01/19/19 01/19/19 01/19/19 01/19/19 08:00 08:17 09:00 11:00 Temp 98.0 98.0 Pulse 47 47 75 Resp 16 B/P (MAP) 138/58 138/58 187/60 (102) Pulse Ox 97 O2 Delivery Room Air Room Air Intake and Output 01/18/19 01/18/19 01/19/19 15:00 23:00 07:00 Intake Total 0 ml 90 ml Output Total 800 ml Balance 0 ml 90 ml -800 ml Nutrition Consultation Dietary Evaluation: Recommendations by RD: Increase Calorie Intake, Protein supplementation Comments: added chocolate ensure tid REC mvi and vit per wound protocal Expected Outcomes/Goals: to meet > 75% est nutr needs Malnutrition Findings: Body Fat Depletion (Non Severe: Mild Depletion Weight Status: Underweight KAYLIN VERGARA MD January 19, 2019 12:01
--- NOTE | 2019-01-19 12:08 | PDOC ---
CARDIO Progress Notes Date and Time Date of Service 01/19/19 Time of Evaluation 1130 Subjective Subjective: No Chest Pain, No shortness of breath, No Palpitations Vitals Vitals Vital Signs Date Time Temp Pulse Resp B/P (MAP) Pulse Ox O2 Delivery O2 Flow Rate FiO2 01/19/19 11:00 98.0 75 16 187/60 (102) 97 Room Air 98.0 Weight Weight [ ] Input and Output Intake and Output Intake and Output 01/19/19 07:00 Intake Total 90 ml Output Total 800 ml Balance -710 ml Intake Oral 90 ml Output Urine Total 800 ml # Voids 3 Laboratory Labs Laboratory Tests Test 01/18/19 13:40 01/18/19 17:35 01/19/19 03:15 Lactic Acid Level 2.0 mmol/L (0.4-2.0) Troponin I Quantitative 0.136 ng/mL (0.000-0.055) 0.191 ng/mL (0.000-0.055) Thyroid Stimulating Hormone (TSH) 0.687 uIU/mL (0.358-3.74) Triglycerides Level 58 mg/dL (0-150) Cholesterol Level 192 mg/dL (0-200) LDL Cholesterol, Calculated 129 mg/dL (0-100) VLDL Cholesterol, Calculated 12 mg/dL (0-40) Non-HDL Cholesterol Calculated 141 mg/dL (0-129) HDL Cholesterol 51 mg/dL (40-60) Cholesterol/HDL Ratio 3.8 Microbiology Micro Microbiology 01/18/19 Blood Culture - Preliminary, Resulted NO GROWTH AFTER 1 DAY Physical Exam HEENT: Neck Supple W Full Motion Chest: Symmetric LUNGS: Clear to Auscultation Heart: S1S2, RRR Abdomen: Soft N/T Extremities: No Edema Neurology: alert, confused Assessment Assessment 1. PSVT: narrow complex. New finding, multifactorial as below. Echo showed preserved LV systolic function with an EF of 55-60%. Metoprolol held due to bradycardia . HR lowest 38. Presently maintaining SR 2. Accelerated HTN; labile 3. Elevated trop: highest at 0.191, EKG SR without acute ST-T wave changes. Suspect type 2 demand mediated with falls, dehydration, SVT, and HTN. Echo showed preserved LV systolic function 4. Weakness with multiple falls likely more from ataxia not arrhythmia: No known syncopal spells. 5. Thyroid nodule: incidental finding per CT 6. Alzheimer's dementia Recommendations Decrease metoprolol to 12.5mg Discontinue labetalol IV PRN Increase lisinopril if BP remains elevated Hydralazine IV PRN Family wishes conservative management. Supportive care Will follow peripherally. Please call with questions VINNIE HANSEN APRN January 19, 2019 12:08
[2019-01-19] MEDS ORDERED: METOPROLOL SUCC 24HR ER 25 MG TAB.ER.24H. PO SCH (13:15)
[2019-01-19] MEDS: ENOXAPARIN 30 MG/0.3 ML SYRINGE. SQ SCH (14:27)
[2019-01-19 15:00] VITALS: BP_SYST 184; BP_SYST 189; BP_DIAS 65; BP_DIAS 72
--- NOTE | 2019-01-19 15:54 | NUR ---
CLAUDIA following Pt. PT recommends home with 24 hour care/Home with home health and Pt does not have OT needs. Due to this, Pt does not qualify for SNU evaluation at this time. Discussed with Pt's in room and he reported they do get home care services in the home through [facility]. He stated they pay for home care through their [employer] care insurance. Pt's stated they had used [facility] in the past and would like to use them again. Spoke with pt's daughter, Tawana, phone: [phone], via phone and she stated home health will be a better fit with pt. Per daughter, Pt currently gets 5 hours home care services and they will be trying to increase the home care hours at home as well. CLAUDIA will arrange HH upon dc. Discussed with RN.
[2019-01-19] MEDS ORDERED: LIDO700A39 TD (16:03)
[2019-01-19] MEDS ORDERED: ASPI-612 PO (16:03)
[2019-01-19] MEDS ORDERED: METO-239 PO (16:03)
[2019-01-19] MEDS ORDERED: ASCO500T2 PO (16:03)
[2019-01-19] MEDS ORDERED: HYDR-2761 PO (16:03)
[2019-01-19] MEDS ORDERED: LISI-130 PO (16:04)
--- NOTE | 2019-01-19 16:06 | SNU/HH DC ---
DISCHARGE WITH HOME HEALTH DISCHARGE INFORMATION: Discharge Date: January 19, 2019 Final Diagnosis: Problems Medical Problems: (1) CHF (congestive heart failure) Status: Acute (2) Dementia Status: Acute (3) Elevated blood pressure reading Status: Acute (4) Elevated troponin I level Status: Acute (5) Frequent falls Status: Acute (6) Renal insufficiency Status: Acute (7) Urinary tract infection Status: Acute Condition on Discharge: Stable CODE STATUS: Code Status: DNR/DNI HOME HEALTH: Face to Face: I certify this patient is under my care and that I, or a nurse practitioner or physician's assistant signal maintainer working with me, had a face to face encounter that meets t he physician face to face encounter requirements with this patient on []. HIGH BP Medical Complications: HTN Usp For: Medication Management RN For Eval/Treatment: Yes Physical Therapy For: Evalulation/Treatment Occupational Therapy For: Evaluation/Treatment Home Health Aide For: Self-care GRANTS ADMINISTRATOR For: Community Resources Pt Meets Homebound Status: Unsteady balance w/ amb, POST DISCHARGE ORDERS: DIET AFTER DISCHARGE: Cardiac CHECKS AFTER DISCHARGE: Checks after discharge: Check blood press - daily FOLLOW-UP: PCP to follow Home Health: she has high bp, meds adjusted, pcp 4 weeks re bp TREATMENT/EQUIPMENT ORDERS: Adaptive Equipment Issued: Front wheeled walker CERTIFICATION STATEMENT: Certification Statement: Certification Statement: Based on the above finding, I certify that this patient is confined to the home and needs intermittent senior care care, physical therapy and/or speech therapy, or continues to need occupational therapy.~ This patient is under my care, and I have initiated the establishment of the plan of care.~ This patient will be followed by myself or a community physician who will periodically review the plan of care. Home Meds Active Scripts Lisinopril (LISINOPRIL) 40 Mg Tablet, 40 MG PO DAILY for htn MDD 1, #30 TAB Prov:KAYLIN VERGARA MD 01/19/19 Lidocaine (Lidocaine) 1 Each Adh..patch, 1 PATCH TD DAILY for pain msk MDD 1, #10 PATCH Prov:KAYLIN VERGARA MD 01/19/19 Ascorbic Acid (VITAMIN C) 500 Mg Tablet, 500 MG PO DAILY for mvi MDD 1, #30 TAB Prov:KAYLIN VERGARA MD 01/19/19 Aspirin (ASPIRIN EC) 81 Mg Tablet.dr, 81 MG PO DAILYWBKFT for primary prevention MDD 1, #60 TAB.SR Prov:KAYLIN VERGARA MD 01/19/19 Hydrocodone Bit/Acetaminophen (HYDROCODONE-APAP 5-325 ) 1 Tab Tablet, 1 TAB PO PRN Q4HRS PRN for MODERATE PAIN, SEVERE PAIN MDD 1, #20 TAB Prov:KAYLIN VERGARA MD 01/19/19 Metoprolol Succinate (METOPROLOL SUCCINATE ( XL )) 25 Mg Tab.er.24h, 12.5 MG PO DAILY for htn, svt,.now christina MDD 1, #60 TAB.SR Prov:KAYLIN VERGARA MD 01/19/19 Reported Medications Cholecalciferol (Vitamin D3) (VITAMIN D3) 1,000 Unit Tablet, 2000 UNIT PO DAILY 02/06/16 Lisinopril (LISINOPRIL) 20 Mg Tablet, 1 TAB PO DAILY, #30 TAB 5 Refills 01/19/15 Sertraline Hcl (SERTRALINE HCL) 100 Mg Tablet, 100 MG PO DAILY for ANTI- DEPRESSANT, TAB 0 Refills 01/19/15 Memantine Hcl (NAMENDA) 10 Mg Tablet, 28 MG PO DAILY, TAB 01/19/15 KAYLIN VERGARA MD January 19, 2019 16:06
--- NOTE | 2019-01-19 16:10 | PDOC3 ---
Discharge Summary Visit Information Date of Admission: January 18, 2019 Date of Discharge: January 19, 2019 Admitting Diagnosis Comment: Fall at home Severe osteoporosis SVT 01/18/19, spont converted with no intervention Cervical C3-C4 disc bulges retrolisthesis-chronic stable Right shoulder pain with no fracture Hypertension-accelerated on admission but now controlled Hip pain after fall Normal vitamin D levels Final Diagnosis Problems Medical Problems: (1) CHF (congestive heart failure) Status: Acute (2) Dementia Status: Acute (3) Elevated blood pressure reading Status: Acute (4) Elevated troponin I level Status: Acute (5) Frequent falls Status: Acute (6) Renal insufficiency Status: Acute (7) Urinary tract infection Status: Acute Brief Hospital Course Allergies Allergies Coded Allergies Type Severity Reaction Last Updated Verified No Known Drug Allergies 08/11/16 No Vital Signs Vital Signs Date Time Temp Pulse Resp B/P (MAP) Pulse Ox O2 Delivery O2 Flow Rate FiO2 01/19/19 15:00 98.0 79 16 184/72 (109) 97 Room Air 98.0 Lab Results Laboratory Tests Test 01/18/19 09:47 01/18/19 10:35 01/18/19 13:40 01/18/19 17:35 White Blood Count 10.9 x10^3/uL (4.0-11.0) Red Blood Count 4.49 x10^6/uL (3.50-5.40) Hemoglobin 13.6 g/dL (12.0-15.5) Hematocrit 39.8 % (36.0-47.0) Mean Corpuscular Volume 89 fL (79-100) Mean Corpuscular Hemoglobin 30 pg (25-35) Mean Corpuscular Hemoglobin Concent 34 g/dL (31-37) Red Cell Distribution Width 13.9 % (11.5-14.5) Platelet Count 209 x10^3/uL (140-400) Neutrophils (%) (Auto) 92 % (31-73) Lymphocytes (%) (Auto) 5 % (24-48) Monocytes (%) (Auto) 3 % (0-9) Eosinophils (%) (Auto) 0 % (0-3) Basophils (%) (Auto) 0 % (0-3) Neutrophils # (Auto) 10.0 x10^3uL (1.8-7.7) Lymphocytes # (Auto) 0.5 x10^3/uL (1.0-4.8) Monocytes # (Auto) 0.4 x10^3/uL (0.0-1.1) Eosinophils # (Auto) 0.0 x10^3/uL (0.0-0.7) Basophils # (Auto) 0.0 x10^3/uL (0.0-0.2) Segmented Neutrophils % 92 % (35-66) Band Neutrophils % 2 % (0-9) Lymphocytes % 4 % (24-48) Monocytes % 2 % (0-10) Platelet Estimate Adequate (ADEQUATE) Prothrombin Time 13.5 SEC (11.7-14.0) Prothromb Time International Ratio 1.1 (0.8-1.1) Sodium Level 144 mmol/L (136-145) Potassium Level 3.9 mmol/L (3.5-5.1) Chloride Level 105 mmol/L (98-107) Carbon Dioxide Level 26 mmol/L (21-32) Anion Gap 13 (6-14) Blood Urea Nitrogen 10 mg/dL (7-20) Creatinine 1.2 mg/dL (0.6-1.0) Estimated GFR (Cockcroft-Gault) 42.9 BUN/Creatinine Ratio 8 (6-20) Glucose Level 189 mg/dL (70-99) Lactic Acid Level 2.2 mmol/L (0.4-2.0) 2.0 mmol/L (0.4-2.0) Calcium Level 9.1 mg/dL (8.5-10.1) Magnesium Level 2.0 mg/dL (1.8-2.4) Total Bilirubin 0.7 mg/dL (0.2-1.0) Aspartate Amino Transf (AST/SGOT) 28 U/L (15-37) Alanine Aminotransferase (ALT/SGPT) 19 U/L (14-59) Alkaline Phosphatase 74 U/L (46-116) Creatine Kinase 344 U/L (26-192) Troponin I Quantitative 0.175 ng/mL (0.000-0.055) 0.136 ng/mL (0.000-0.055) 0.191 ng/mL (0.000-0.055) TB-Tsj-Q-Type Natriuretic Peptide 2332 pg/mL (0-449) Total Protein 6.7 g/dL (6.4-8.2) Albumin 3.7 g/dL (3.4-5.0) Albumin/Globulin Ratio 1.2 (1.0-1.7) Lipase 60 U/L (73-393) 25-Hydroxy Vitamin D Total 66.8 ng/mL (30-100) Urine Collection Type U cath Urine Color Yellow Urine Clarity Clear Urine pH 6.5 Urine Specific [place] 1.020 Urine Protein 100 mg/dL (NEG-TRACE) Urine Glucose (UA) Negative mg/dL (NEG) Urine Ketones (Stick) Trace mg/dL (NEG) Urine Blood Trace (NEG) Urine Nitrite Negative (NEG) Urine Bilirubin Negative (NEG) Urine Urobilinogen Dipstick 1.0 mg/dL (0.2 mg/dL) Urine Leukocyte Esterase Negative (NEG) Urine RBC Occ /HPF (0-2) Urine WBC 5-10 /HPF (0-4) Urine Amorphous Sediment Present /HPF Urine Bacteria Few /HPF (0-FEW) Urine Hyaline Casts Few /HPF Urine Mucus Mod /LPF Thyroid Stimulating Hormone (TSH) 0.687 uIU/mL (0.358-3.74) Test 01/19/19 03:15 Triglycerides Level 58 mg/dL (0-150) Cholesterol Level 192 mg/dL (0-200) LDL Cholesterol, Calculated 129 mg/dL (0-100) VLDL Cholesterol, Calculated 12 mg/dL (0-40) Non-HDL Cholesterol Calculated 141 mg/dL (0-129) HDL Cholesterol 51 mg/dL (40-60) Cholesterol/HDL Ratio 3.8 Laboratory Tests Test 01/18/19 17:35 01/19/19 03:15 Troponin I Quantitative 0.191 ng/mL (0.000-0.055) Triglycerides Level 58 mg/dL (0-150) Cholesterol Level 192 mg/dL (0-200) LDL Cholesterol, Calculated 129 mg/dL (0-100) VLDL Cholesterol, Calculated 12 mg/dL (0-40) Non-HDL Cholesterol Calculated 141 mg/dL (0-129) HDL Cholesterol 51 mg/dL (40-60) Cholesterol/HDL Ratio 3.8 Brief Hospital Course Ms. Fields is a 83 old white female who lives with equally elderly she came in because of a fall, no fractures. Just really weak but amazingly did well with PT and just recommended home health. Course remarkable for hypertension and SVT but spont converted. Bradycardic. Cardiology consulted, echo okay. But advised to decrease metoprolol 12.5 because of bradycardia but increase lisinopril 40 as hypertension persists Catherine made these changes and Rx provided Vitamin D levels are actually normal. Osteoporosis visible on her flor imaging done to rule out any fracture and there is no fracture Discharge disposition home with home health Discharge is follow-up with PCP regarding blood pressure as blood pressure meds have been adjusted Proc; echo, normal EF dnr Discharge Information Condition at Discharge: Improved, Stable Disposition/Orders: D/C to Home w/ HH Scheduled Ascorbic Acid (Vitamin C) 500 Mg Tablet, 500 MG PO DAILY for mvi MDD 1, #30 Prescribed by: KAYLIN VERGARA on 01/19/19 1603 Aspirin (Aspirin Ec) 81 Mg Tablet.dr, 81 MG PO DAILYWBKFT for primary prevention MDD 1, #60 Prescribed by: KAYLIN VERGARA on 01/19/19 1603 Cholecalciferol (Vitamin D3) (Vitamin D3) 1,000 Unit Tablet, 2,000 UNIT PO DAILY , (Reported) Entered as Reported by: CRISTOBAL HANDLEY on 02/06/16 0820 Last Action: Continued on 01/18/19 1323 by KAYLIN VERGARA Lidocaine (Lidocaine) 1 Each Adh..patch, 1 PATCH TD DAILY for pain msk MDD 1, #10 Prescribed by: KAYLIN VERGARA on 01/19/19 1603 Lisinopril (Lisinopril) 20 Mg Tablet, 1 TAB PO DAILY, #30 Ref 5 (Reported) Entered as Reported by: CRISTINA INGRAM on 01/19/15 1015 Last Action: Continued on 01/18/19 1323 by KAYLIN VERGARA Lisinopril (Lisinopril) 40 Mg Tablet, 40 MG PO DAILY for htn MDD 1, #30 Prescribed by: KAYLIN VERGARA on 01/19/19 1604 Memantine Hcl (Namenda) 10 Mg Tablet, 28 MG PO DAILY, (Reported) Entered as Reported by: CRISTINA INGRAM on 01/19/15 1014 Last Action: Converted on 01/18/19 1323 by KAYLIN VERGARA Metoprolol Succinate (Metoprolol Succinate ( Xl )) 25 Mg Tab.er.24h, 12.5 MG PO DAILY for htn, svt,.now christina MDD 1, #60 Prescribed by: KAYLIN VERGARA on 01/19/19 1603 Sertraline Hcl (Sertraline Hcl) 100 Mg Tablet, 100 MG PO DAILY for ANTI- DEPRESSANT, Ref 0 (Reported) Entered as Reported by: CRISTINA INGRAM on 01/19/15 1014 Last Action: Converted on 01/18/19 1323 by KAYLIN VERGARA Scheduled PRN Hydrocodone Bit/Acetaminophen (Hydrocodone-Apap 5-325 ) 1 Tab Tablet, 1 TAB PO PRN Q4HRS PRN for MODERATE PAIN, SEVERE PAIN MDD 1, #20 Prescribed by: KAYLIN VERGARA on 01/19/19 0323 KAYLIN VERGARA MD January 19, 2019 16:10
--- NOTE | 2019-01-19 16:11 | NUR ---
CLAUDIA phoned and faxed orders to [facility]. Pt's choice and rights forms signed by pt's and copies placed on chart. Pt's daughter in room and agreeable with plans. Discussed with RN.
[2019-01-19] MEDS ORDERED: hydrALAZINE 20 MG/ML VIAL. IVP ONE (16:15)
[2019-01-19 17:00] VITALS: BP 170/49
--- NOTE | 2019-01-19 17:56 | NUR ---
Discharge Note: ANIKA JENNINGS [address] [place] [address] Discharge instructions and discharge home medications reviewed with Patient and a copy given. All questions have been answered and understanding verbalized. The following instructions and handouts were given: Given to daughter to include medication instructions, home health follow-up information Discontinued lines and drains: 1 x PIV d/c'ed tip intact Patient discharged to Home with home health services. and daughter with patient at time of discharge.
== END 2019-01-19 16:53 | disposition home health service (06) | DRG 309 ==
LOC: ER 09:22 → 6 SOUTH 10:48
PROVIDERS: ADMIT Internal Medicine; ATTEND Internal Medicine
DX: I47.1 Supraventricular tachycardia (principal); N39.0 Urinary tract infection, site not specified; I24.8 Other forms of acute ischemic heart disease; I11.0 Hypertensive heart disease with heart failure; Z90.49 Acquired absence of other specified parts of digestive tract; F02.80 Dementia in other diseases classified elsewhere, unspecified severity, without behavioral disturbance, psychotic disturbance, mood disturbance, and anxiety; R29.6 Repeated falls; N28.9 Disorder of kidney and ureter, unspecified; I50.9 Heart failure, unspecified; M81.0 Age-related osteoporosis without current pathological fracture; E78.5 Hyperlipidemia, unspecified; M19.90 Unspecified osteoarthritis, unspecified site; F41.9 Anxiety disorder, unspecified; Z96.642 Presence of left artificial hip joint; Z79.899 Other long term (current) drug therapy; G30.9 Alzheimer's disease, unspecified; E04.1 Nontoxic single thyroid nodule; M50.81 Other cervical disc disorders, high cervical region; Z66 Do not resuscitate
CPT/HCPCS: 36415; 70450; 71045; 72125; 73030; 73502; 80053; 80061; 81001; 82306; 82550; 83605; 83690; 83735; 83880; 84443; 84484; 85007; 85025; 85610; 87040; 87086; 93005; 93306; 96374; J0360; J0696; J1650; J7030; 92610; 97116; 97535; 99285-25

== ENCOUNTER 2019-01-24 11:58 | Inpatient (IN) | payer MEDICARE ==
[~2019-01-24] VITALS: Ht 167.6 cm; Wt 39.9 kg
[~2019-01-24 11:58] MED LIST changes: +ASCO500T2 PO; +ASPI-612 PO; +HYDR-2761 PO; +LIDO700A39 TD; +LISI-130 PO; +METO-239 PO
[2019-01-24 12:29] LABS: BILIRUBIN,URINE NEGATIVE (NEG); CLARITY,URINE CLEAR; COLOR,URINE YELLOW; NITRITE,URINE NEGATIVE (NEG); PROTEIN,URINE 100 mg/dL (NEG-TRACE); UROBILINOGEN,URINE 0.2 mg/dL (0.2 mg/dL)
[2019-01-24 12:38] LABS: HYALINE CASTS, URINE MODERATE /HPF
[2019-01-24 12:39] LABS: BACTERIA,URINE 0 /HPF (0-FEW)
--- NOTE | 2019-01-24 12:42 | PHYS DOC ---
Past Medical History Past Medical History: Dementia, Hypertension, UTI Past Surgical History: Cholecystectomy Alcohol Use: None Drug Use: None Adult General Chief Complaint Chief Complaint: ALTERED MENTAL STATUS HPI HPI Patient is a 83 year old female who brought in by EMS because of altered level of consciousness. Patient has history of dementia and frequent falls and recent hospitalization on January 18 for one day because of frequent falls and and UTI and discharged with providing home health care. Patient had increase of confusion and did not talk today. Patient is not able answering the question patient usually is alert and oriented 1. Review of Systems Review of Systems Unable to obtain because of medical condition Current Medications Current Medications Current Medications Medications (Trade) Dose Ordered Sig/Robin Start Time Stop Time Status Last Admin Dose Admin Labetalol HCl (Normodyne Iv Push) 20 mg 1X ONCE 01/24/19 13:30 01/24/19 13:31 DC 01/24/19 14:10 20 MG Sodium Chloride 1,000 ml @ 100 mls/hr Q10H 01/24/19 13:35 01/25/19 13:34 Allergies Allergies Allergies Coded Allergies Type Severity Reaction Last Updated Verified No Known Drug Allergies 08/11/16 No Physical Exam Physical Exam Constitutional: Well nourished, mild distress, non-toxic appearance. [] HENT: Normocephalic, atraumatic,, oropharynx moist. Eyes: PERRLA, EOMI, conjunctiva normal, no discharge. [] Neck: Normal range of motion, no tenderness, supple, no stridor. [] Cardiovascular: Tachycardia. Lungs & Thorax: Bilateral breath sounds clear to auscultation [] Abdomen: Bowel sounds normal, soft, no tenderness, no masses, no pulsatile masses. [] Skin: Warm, dry, no erythema, no rash. [] Back: No tenderness, no CVA tenderness. [] Extremities:Old ecchymosis in medial side of right knee, no cyanosis, no clubbing, ROM intact, no edema. [] Neurologic: Patient keeps her eyes closed but open with the, and, moves all extremities, Current Patient Data Vital Signs Vital Signs Date Time Temp Pulse Resp B/P (MAP) Pulse Ox O2 Delivery O2 Flow Rate FiO2 01/24/19 14:10 100 214/102 01/24/19 14:00 20 97 01/24/19 12:00 98.5 Room Air 98.5 Lab Values Laboratory Tests Test 01/24/19 12:05 01/24/19 13:00 Urine Collection Type U cath Urine Color Yellow Urine Clarity Clear Urine pH 7.0 Urine Specific [place] 1.015 Urine Protein 100 mg/dL (NEG-TRACE) Urine Glucose (UA) Negative mg/dL (NEG) Urine Ketones (Stick) Negative mg/dL (NEG) Urine Blood Small (NEG) Urine Nitrite Negative (NEG) Urine Bilirubin Negative (NEG) Urine Urobilinogen Dipstick 0.2 mg/dL (0.2 mg/dL) Urine Leukocyte Esterase Negative (NEG) Urine RBC 1-2 /HPF (0-2) Urine WBC 1-4 /HPF (0-4) Urine Transitional Epithelial Cells Few /LPF Urine Bacteria 0 /HPF (0-FEW) Urine Hyaline Casts Moderate /HPF Urine Mucus Slight /LPF White Blood Count 10.7 x10^3/uL (4.0-11.0) Red Blood Count 4.78 x10^6/uL (3.50-5.40) Hemoglobin 14.2 g/dL (12.0-15.5) Hematocrit 42.5 % (36.0-47.0) Mean Corpuscular Volume 89 fL (79-100) Mean Corpuscular Hemoglobin 30 pg (25-35) Mean Corpuscular Hemoglobin Concent 33 g/dL (31-37) Red Cell Distribution Width 14.2 % (11.5-14.5) Platelet Count 271 x10^3/uL (140-400) Neutrophils (%) (Auto) 90 % (31-73) H Lymphocytes (%) (Auto) 6 % (24-48) L Monocytes (%) (Auto) 4 % (0-9) Eosinophils (%) (Auto) 0 % (0-3) Basophils (%) (Auto) 0 % (0-3) Neutrophils # (Auto) 9.7 x10^3uL (1.8-7.7) H Lymphocytes # (Auto) 0.6 x10^3/uL (1.0-4.8) L Monocytes # (Auto) 0.4 x10^3/uL (0.0-1.1) Eosinophils # (Auto) 0.0 x10^3/uL (0.0-0.7) Basophils # (Auto) 0.0 x10^3/uL (0.0-0.2) Segmented Neutrophils % 80 % (35-66) H Band Neutrophils % 14 % (0-9) H Lymphocytes % 5 % (24-48) L Atypical Lymphocytes % (Manual) 1 % (0-0) H Platelet Estimate Adequate (ADEQUATE) Sodium Level 145 mmol/L (136-145) Potassium Level 3.9 mmol/L (3.5-5.1) Chloride Level 102 mmol/L (98-107) Carbon Dioxide Level 29 mmol/L (21-32) Anion Gap 14 (6-14) Blood Urea Nitrogen 10 mg/dL (7-20) Creatinine 1.0 mg/dL (0.6-1.0) Estimated GFR (Cockcroft-Gault) 53.0 BUN/Creatinine Ratio 10 (6-20) Glucose Level 168 mg/dL (70-99) H Lactic Acid Level 2.6 mmol/L (0.4-2.0) H Calcium Level 9.5 mg/dL (8.5-10.1) Magnesium Level 1.8 mg/dL (1.8-2.4) Total Bilirubin 0.6 mg/dL (0.2-1.0) Aspartate Amino Transferase (AST) 54 U/L (15-37) H Alanine Aminotransferase (ALT) 41 U/L (14-59) Alkaline Phosphatase 86 U/L (46-116) Creatine Kinase 659 U/L (26-192) H Troponin I Quantitative 0.925 ng/mL (0.000-0.055) XN-Yue-D-Type Natriuretic Peptide 9464 pg/mL (0-449) H Total Protein 6.9 g/dL (6.4-8.2) Albumin 3.8 g/dL (3.4-5.0) Albumin/Globulin Ratio 1.2 (1.0-1.7) Laboratory Tests 01/24/19 13:00 Laboratory Tests 01/24/19 13:00 EKG EKG EKG Interpreted by me. EKG at 1210 showed sinus tachycardia at rate of 101, poor R-wave progress in anterior or septal leads, no acute ST and T-wave abnormalities. Radiology/Procedures Radiology/Procedures [facility] [address] [place] [address] IMAGING REPORT Signed PATIENT: ANIKA JENNINGS ACCOUNT: [id number] : 1935 LOCATION: ER AGE: 83 SEX: F EXAM STATUS: REG ER ORD. PHYSICIAN: MATHIEU TOURE MD REASON: ALOC PROCEDURE: CT HEAD WO CONTRAST CT HEAD INDICATION: Loss of consciousness COMPARISON: None Available. Exposure: One or more of the following individualized dose reduction techniques were utilized for this examination: 1. Automated exposure control 2. Adjustment of the mA and/or kV according to patient size 3. Use of iterative reconstruction technique TECHNIQUE: 5 mm contiguous axial images were obtained from the skull base to the vertex in both bone and soft tissue algorithm. FINDINGS: Mild bilateral periventricular white matter hypodensities likely chronic small vessel ischemic disease. No evidence of acute intracranial hemorrhage. No extra-axial fluid collections. No mass effect or midline shift. Ventricular size is appropriate. Basal cisterns are patent. No fractures identified.Lilly-white differentiation is preserved.Globes and orbits are within normal limits. Paranasal sinuses and mastoid air cells are clear. IMPRESSION: No acute intracranial findings. If acute infarct is clinically suspicious consider MRI for further evaluation. Electronically signed by: Ralph Guo MD (01/24/2019 1:03 PM) [facility] DICTATED and SIGNED BY: RALPH GUO MD DATE: 01/24/19 1303 Course & Med Decision Making Course & Med Decision Making Pertinent Labs and Imaging studies reviewed. (See chart for details) Evaluation of patient in ER showed 82-year-old female patient with history of dementia brought in by EMS because of altered level of consciousness since this morning. Patient had recent hospitalization with sepsis and UTI at this morning was not able to get out of the bed and talked like her usual. She usually is alert and oriented 1. Patient had blood pressure more than 200 and treated with labetalol. Patient did not have UTI or elevation of lactic acid or abnormal electrolytes.Patient requiring admission for further evaluation and treatment. Discussed with Dr. Rivas who is in agreement with admission. Discussed findings and plan with patient and family, who acknowledge understanding and agreement. Dragon Disclaimer Dragon Disclaimer This electronic medical record was generated, in whole or in part, using a voice recognition dictation system. Departure Departure Impression: Primary Impression: Altered level of consciousness Additional Impressions: Hypertensive urgency Dementia Disposition: 09 ADMITTED INPATIENT Admitting Physician: Other Condition: GUARDED Referrals: LUCHO MINER MD (PCP) Problem Qualifiers Additional Impressions: Dementia Dementia type: unspecified type Dementia behavioral disturbance: without behavioral disturbance Qualified Codes: F03.90 - Unspecified dementia without behavioral disturbance MATHIEU TOURE MD January 24, 2019 12:42
--- NOTE | 2019-01-24 13:06 | RAD ---
CT HEAD INDICATION: Loss of consciousness COMPARISON: None Available. Exposure: One or more of the following individualized dose reduction techniques were utilized for this examination: 1. Automated exposure control 2. Adjustment of the mA and/or kV according to patient size 3. Use of iterative reconstruction technique TECHNIQUE: 5 mm contiguous axial images were obtained from the skull base to the vertex in both bone and soft tissue algorithm. FINDINGS: Mild bilateral periventricular white matter hypodensities likely chronic small vessel ischemic disease. No evidence of acute intracranial hemorrhage. No extra-axial fluid collections. No mass effect or midline shift. Ventricular size is appropriate. Basal cisterns are patent. No fractures identified.Lilly-white differentiation is preserved.Globes and orbits are within normal limits. Paranasal sinuses and mastoid air cells are clear. IMPRESSION: No acute intracranial findings. If acute infarct is clinically suspicious consider MRI for further evaluation. Electronically signed by: Ralph Guo MD (01/24/2019 1:03 PM) [id number]
[2019-01-24 13:19] LABS: BASO % 0 % (0-3); EOS % 0 % (0-3); HEMATOCRIT 42.5 % (36.0-47.0); HEMOGLOBIN 14.2 g/dL (12.0-15.5); LYMPH # 0.6 x10^3/uL (1.0-4.8); LYMPH % 6 % (24-48); MEAN CORPUSCULAR HEMOGLOBIN 30 pg (25-35); MEAN CORPUSCULAR HGB CONC 33 g/dL (31-37); MEAN CORPUSCULAR VOLUME 89 fL (79-100); MONO # 0.4 x10^3/uL (0.0-1.1); MONO % 4 % (0-9); NEUT # 9.7 x10^3uL (1.8-7.7); NEUT % 90 % (31-73); PLATELET COUNT 271 x10^3/uL (140-400); RED BLOOD COUNT 4.78 x10^6/uL (3.50-5.40); RED CELL DISTRIBUTION WIDTH 14.2 % (11.5-14.5); WHITE BLOOD COUNT 10.7 x10^3/uL (4.0-11.0)
--- NOTE | 2019-01-24 13:22 | EKG ---
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
[2019-01-24] MEDS ORDERED: LABETALOL 20 MG/4 ML DISP.SYRIN. IVP ONE (13:30)
[2019-01-24 13:40] LABS: CALCIUM 9.5 mg/dL (8.5-10.1); POTASSIUM 3.9 mmol/L (3.5-5.1)
[2019-01-24 13:45] LABS: ALBUMIN 3.8 g/dL (3.4-5.0); ALBUMIN/GLOBULIN RATIO 1.2 (1.0-1.7); MAGNESIUM 1.8 mg/dL (1.8-2.4); TOTAL BILIRUBIN 0.6 mg/dL (0.2-1.0); TOTAL PROTEIN 6.9 g/dL (6.4-8.2)
[2019-01-24 14:14] LABS: % ATYL 1 % (0-0); % BANDS 14 % (0-9); % LYMPHS 5 % (24-48); % SEGS 80 % (35-66); PLT ESTIMATE ADEQUATE (ADEQUATE)
[2019-01-24] MEDS: IV NORMAL SALINE 1000ML BAG 1,000 ML IV SCH (14:59)
[2019-01-24 15:00] VITALS: BP 186/85
--- NOTE | 2019-01-24 15:17 | PDOC1 ---
History and Physical Date of Admission Date of Admission DATE: 01/24/19 TIME: 15:09 Identification/Chief Complaint Chief Complaint Confusion Source Source: Caregiver, Chart review History of Present Illness History of Present Illness Ms Fields is an 83 yo female w/ PMHx Alzheimer dementia who presents to ED per and adult daughter and son with altered level of consciousness. Patient has history of frequent falls and recent hospitalization on January for one day because of frequent falls and and UTI and discharged with home health care. Patient did not talk today to her family, but is usually alert and oriented 1. She has significant debility with severe osteoporosis and having right hip and 2 person max assist. No noted chest pain or SOA. She was complaining of pain last week, but it is migratory in nature, never the same location twice. Baseline chao she is noted with 1 person assist and receives home health and and receives consistent 6-8 hours daily care and at night just the . No known arrhythmias or CAD or CVA. Her gait at home was described by her daughter as staggering. She has a walker but continues to fail to use it and despite being given food and prompts does not eat well recently. In ED CT head was negative for acute hemorrhage. BP was noted 230/130 while I was examining patient. CK 659, trop 0.925, BNP 9464, lactate 2.6, AST 54, glucose 168. Past Medical History Cardiovascular: HTN, Hyperlipidemia Pulmonary: No pertinent hx CENTRAL NERVOUS SYSTEM: Dementia GI: No pertinent hx Heme/Onc: No pertinent hx Hepatobiliary: No pertinent hx Psych: Anxiety Musculoskeletal: Osteoarthritis Rheumatologic: No pertinent hx Infectious disease: No pertinent hx Renal/: Urinary Incontinence Endocrine: No pertinent hx, Osteoporosis Past Surgical History Past Surgical History: Cholecystectomy, Total hip replacement Family History Family History: Family History Unknown Social History Smoke: No ALCOHOL: none Drugs: None Current Problem List Problem List Problems Medical Problems: (1) Altered level of consciousness Status: Acute (2) Dementia Status: Acute (3) Hypertensive urgency Status: Acute Current Medications Current Medications Current Medications Labetalol HCl (Normodyne Iv Push) 20 mg 1X ONCE IVP Last administered on 01/24/19at 14:10; Start 01/24/19 at 13:30; Stop 01/24/19 at 13:31; Status DC Sodium Chloride 1,000 ml @ 100 mls/hr Q10H IV Last administered on 01/24/19at 14:59; Start 01/24/19 at 13:35; Stop 01/25/19 at 13:34 Active Scripts Active Lisinopril 40 Mg Tablet 40 Mg PO DAILY MDD 1 Lidocaine 1 Each Adh..patch 1 Patch TD DAILY MDD 1 Vitamin C (Ascorbic Acid) 500 Mg Tablet 500 Mg PO DAILY MDD 1 Aspirin Ec (Aspirin) 81 Mg Tablet.dr 81 Mg PO DAILYWBKFT MDD 1 Hydrocodone-Apap 5-325 (Hydrocodone Bit/Acetaminophen) 1 Tab Tablet 1 Tab PO PRN Q4HRS PRN MDD 1 Metoprolol Succinate ( Xl ) (Metoprolol Succinate) 25 Mg Tab.er.24h 12.5 Mg PO DAILY MDD 1 Reported Vitamin D3 (Cholecalciferol (Vitamin D3)) 1,000 Unit Tablet 2,000 Unit PO DAILY Sertraline Hcl 100 Mg Tablet 100 Mg PO DAILY Namenda (Memantine Hcl) 10 Mg Tablet 28 Mg PO DAILY Allergies Allergies: Coded Allergies: No Known Drug Allergies (Unverified , 08/11/16) ROS Review of System Unable to obtain 11 point ROS due to patient non-verbal and moaning at this time Physical Exam General: mild distress HEENT: Atraumatic, PERRLA, EOMI, Mucous membr. moist/pink Lungs: Normal air movement Heart: S1S2, RRR, no gallops, no murmurs Abdomen: Normal bowel sounds, Soft, No hepatosplenomegaly, No masses, Other (LLQ guarding) Extremities: No clubbing, No cyanosis, No edema, Normal pulses, No tenderness/swelling Skin: No rashes, No breakdown, No significant lesion Neuro: Other (Moving all 4 limbs, but at rest has right arm in contracted appearing position) Vitals Vitals Vital Signs Date Time Temp Pulse Resp B/P (MAP) Pulse Ox O2 Delivery O2 Flow Rate FiO2 01/24/19 14:10 100 214/102 01/24/19 14:00 20 97 01/24/19 12:00 98.5 Room Air 98.5 Labs Labs Laboratory Tests Test 01/24/19 12:05 01/24/19 13:00 Urine Collection Type U cath Urine Color Yellow Urine Clarity Clear Urine pH 7.0 Urine Specific [place] 1.015 Urine Protein 100 mg/dL (NEG-TRACE) Urine Glucose (UA) Negative mg/dL (NEG) Urine Ketones (Stick) Negative mg/dL (NEG) Urine Blood Small (NEG) Urine Nitrite Negative (NEG) Urine Bilirubin Negative (NEG) Urine Urobilinogen Dipstick 0.2 mg/dL (0.2 mg/dL) Urine Leukocyte Esterase Negative (NEG) Urine RBC 1-2 /HPF (0-2) Urine WBC 1-4 /HPF (0-4) Urine Transitional Epithelial Cells Few /LPF Urine Bacteria 0 /HPF (0-FEW) Urine Hyaline Casts Moderate /HPF Urine Mucus Slight /LPF White Blood Count 10.7 x10^3/uL (4.0-11.0) Red Blood Count 4.78 x10^6/uL (3.50-5.40) Hemoglobin 14.2 g/dL (12.0-15.5) Hematocrit 42.5 % (36.0-47.0) Mean Corpuscular Volume 89 fL (79-100) Mean Corpuscular Hemoglobin 30 pg (25-35) Mean Corpuscular Hemoglobin Concent 33 g/dL (31-37) Red Cell Distribution Width 14.2 % (11.5-14.5) Platelet Count 271 x10^3/uL (140-400) Neutrophils (%) (Auto) 90 % (31-73) Lymphocytes (%) (Auto) 6 % (24-48) Monocytes (%) (Auto) 4 % (0-9) Eosinophils (%) (Auto) 0 % (0-3) Basophils (%) (Auto) 0 % (0-3) Neutrophils # (Auto) 9.7 x10^3uL (1.8-7.7) Lymphocytes # (Auto) 0.6 x10^3/uL (1.0-4.8) Monocytes # (Auto) 0.4 x10^3/uL (0.0-1.1) Eosinophils # (Auto) 0.0 x10^3/uL (0.0-0.7) Basophils # (Auto) 0.0 x10^3/uL (0.0-0.2) Segmented Neutrophils % 80 % (35-66) Band Neutrophils % 14 % (0-9) Lymphocytes % 5 % (24-48) Atypical Lymphocytes % (Manual) 1 % (0-0) Platelet Estimate Adequate (ADEQUATE) Sodium Level 145 mmol/L (136-145) Potassium Level 3.9 mmol/L (3.5-5.1) Chloride Level 102 mmol/L (98-107) Carbon Dioxide Level 29 mmol/L (21-32) Anion Gap 14 (6-14) Blood Urea Nitrogen 10 mg/dL (7-20) Creatinine 1.0 mg/dL (0.6-1.0) Estimated GFR (Cockcroft-Gault) 53.0 BUN/Creatinine Ratio 10 (6-20) Glucose Level 168 mg/dL (70-99) Lactic Acid Level 2.6 mmol/L (0.4-2.0) Calcium Level 9.5 mg/dL (8.5-10.1) Magnesium Level 1.8 mg/dL (1.8-2.4) Total Bilirubin 0.6 mg/dL (0.2-1.0) Aspartate Amino Transf (AST/SGOT) 54 U/L (15-37) Alanine Aminotransferase (ALT/SGPT) 41 U/L (14-59) Alkaline Phosphatase 86 U/L (46-116) Creatine Kinase 659 U/L (26-192) Troponin I Quantitative 0.925 ng/mL (0.000-0.055) TB-Lnp-Y-Type Natriuretic Peptide 9464 pg/mL (0-449) Total Protein 6.9 g/dL (6.4-8.2) Albumin 3.8 g/dL (3.4-5.0) Albumin/Globulin Ratio 1.2 (1.0-1.7) Laboratory Tests Test 01/24/19 12:05 01/24/19 13:00 Urine Collection Type U cath Urine Color Yellow Urine Clarity Clear Urine pH 7.0 Urine Specific [place] 1.015 Urine Protein 100 mg/dL (NEG-TRACE) Urine Glucose (UA) Negative mg/dL (NEG) Urine Ketones (Stick) Negative mg/dL (NEG) Urine Blood Small (NEG) Urine Nitrite Negative (NEG) Urine Bilirubin Negative (NEG) Urine Urobilinogen Dipstick 0.2 mg/dL (0.2 mg/dL) Urine Leukocyte Esterase Negative (NEG) Urine RBC 1-2 /HPF (0-2) Urine WBC 1-4 /HPF (0-4) Urine Transitional Epithelial Cells Few /LPF Urine Bacteria 0 /HPF (0-FEW) Urine Hyaline Casts Moderate /HPF Urine Mucus Slight /LPF White Blood Count 10.7 x10^3/uL (4.0-11.0) Red Blood Count 4.78 x10^6/uL (3.50-5.40) Hemoglobin 14.2 g/dL (12.0-15.5) Hematocrit 42.5 % (36.0-47.0) Mean Corpuscular Volume 89 fL (79-100) Mean Corpuscular Hemoglobin 30 pg (25-35) Mean Corpuscular Hemoglobin Concent 33 g/dL (31-37) Red Cell Distribution Width 14.2 % (11.5-14.5) Platelet Count 271 x10^3/uL (140-400) Neutrophils (%) (Auto) 90 % (31-73) Lymphocytes (%) (Auto) 6 % (24-48) Monocytes (%) (Auto) 4 % (0-9) Eosinophils (%) (Auto) 0 % (0-3) Basophils (%) (Auto) 0 % (0-3) Neutrophils # (Auto) 9.7 x10^3uL (1.8-7.7) Lymphocytes # (Auto) 0.6 x10^3/uL (1.0-4.8) Monocytes # (Auto) 0.4 x10^3/uL (0.0-1.1) Eosinophils # (Auto) 0.0 x10^3/uL (0.0-0.7) Basophils # (Auto) 0.0 x10^3/uL (0.0-0.2) Segmented Neutrophils % 80 % (35-66) Band Neutrophils % 14 % (0-9) Lymphocytes % 5 % (24-48) Atypical Lymphocytes % (Manual) 1 % (0-0) Platelet Estimate Adequate (ADEQUATE) Sodium Level 145 mmol/L (136-145) Potassium Level 3.9 mmol/L (3.5-5.1) Chloride Level 102 mmol/L (98-107) Carbon Dioxide Level 29 mmol/L (21-32) Anion Gap 14 (6-14) Blood Urea Nitrogen 10 mg/dL (7-20) Creatinine 1.0 mg/dL (0.6-1.0) Estimated GFR (Cockcroft-Gault) 53.0 BUN/Creatinine Ratio 10 (6-20) Glucose Level 168 mg/dL (70-99) Lactic Acid Level 2.6 mmol/L (0.4-2.0) Calcium Level 9.5 mg/dL (8.5-10.1) Magnesium Level 1.8 mg/dL (1.8-2.4) Total Bilirubin 0.6 mg/dL (0.2-1.0) Aspartate Amino Transf (AST/SGOT) 54 U/L (15-37) Alanine Aminotransferase (ALT/SGPT) 41 U/L (14-59) Alkaline Phosphatase 86 U/L (46-116) Creatine Kinase 659 U/L (26-192) Troponin I Quantitative 0.925 ng/mL (0.000-0.055) CT-Qps-X-Type Natriuretic Peptide 9464 pg/mL (0-449) Total Protein 6.9 g/dL (6.4-8.2) Albumin 3.8 g/dL (3.4-5.0) Albumin/Globulin Ratio 1.2 (1.0-1.7) Images Images CT head impression - No acute intracranial findings. If acute infarct is clinically suspicious consider MRI for further evaluation. VTE Prophylaxis Ordered VTE Prophylaxis Devices: No VTE Pharmacological Prophylaxi: Yes Assessment/Plan Assessment/Plan A/P: Acute encephalopathy - likely hypertensive encephalopathy, metabolic. Will cons ult neurology, may need further head imaging to r/o CVA. Will obtain CXR to r/o pneumonia as well HTN urgency - with end organ dysfunction Rhabdomyolysis - with AST elevation, CPK elevation, will trend, hydrate. likely was from prior falls Elevated troponin - will trend, likely demand from accelerated HTN Fall at home - needs placement with memory care given her advanced dementia Severe osteoporosis - calcium and vitamin d. High risk for osteoporotic fracture SVT 01/18/19, spont converted with no intervention Cervical C3-C4 disc bulges retrolisthesis-chronic stable Elevated lactate - likely from poor PO intake, will hydrate, nutrition Moderate protein calorie malnutrition - from her dementia, will give supplements Alzheimer dementia - will cont light during the day, redirection. Pretty advanced per family FEN - General PPX - lovenox DNR/DNI Inpatient for acute encephalopathy, she will need placement, if she returns to baseline, may be able to have skilled care, but ultimately in the next year will most likely need bed bug exterminator/memory care. GRABIEL MACHUCA MD January 24, 2019 15:17
[2019-01-24] MEDS ORDERED: HYDROcodone/APAP 5/325MG 1 TAB TABLET PO PRN (16:15)
[2019-01-24] MEDS: POLYETHYLENE GLYCOL 3350 17 GM PACKET. PO SCH (16:15)
[2019-01-24] MEDS ORDERED: SENNOSIDES/DOCUSATE 8.6/50MG TABLET. PO PRN (16:15)
[2019-01-24] MEDS ORDERED: ONDANSETRON PF 4 MG/2 ML VIAL. IV PRN (16:15)
[2019-01-24] MEDS: ASPIRIN ENTERIC COATED 81 MG TABLET.DR. PO SCH (16:15)
[2019-01-24] MEDS: ENALAPRILAT 2.5 MG/2 ML VIAL. IVP PRN ×2 (16:30→23:29)
[2019-01-24 16:51] VITALS: BP 161/94
[2019-01-24 17:50] VITALS: BP 181/84
[2019-01-24] MEDS: ENOXAPARIN 40 MG/0.4 ML SYRINGE. SQ SCH (18:27)
[2019-01-24 18:29] VITALS: BP 168/79
[2019-01-24 19:35] VITALS: BP 171/94
--- NOTE | 2019-01-24 19:41 | PDOC2 ---
NEUROLOGY CONSULT Date of Admission Date of Admission DATE: 01/24/19 TIME: 19:31 Reason for Consult Reason for Consult: IMPRESSION: Metabolic encephalopathy. Hypertensive encephalopathy. Hypertensive emergency, BP 230/130 mmHg. TIA symptoms? Confusion. Stiffness.lactic acidosis. CHF. HLD. Dementia. RECOMMENDATIONS/PLAN: BP control. ASA 81 mg daily. Brain MRI w/o contrast. Lab: see orders. Please consult Cardiology for elevated troponin. Continue home meds for dementia. Discussed with her at bedside on 01/24/19. HISTORY OF THE PRESENT ILLNESS: Ms Fields is an 83-y-old female w/ PMHx Alzheimer dementia who presents to ED per and adult daughter and son with altered level of consciousness. Patient has history of frequent falls and recent hospitalization on January for one day because of frequent falls and and UTI and discharged with home health care. Patient did not talk today to her family, but is usually alert and oriented 1. She has significant debility with severe osteoporosis and having right hip and 2 person max assist. No noted chest pain or SOA. She was complaining of pain last week, but it is migratory in nature, never the same location twice. Baseline chao she is noted with 1 person assist and receives home health and and receives consistent 6-8 hours daily care and at night just the . No known arrhythmias or CAD or CVA. Her gait at home was described by her daughter as staggering. She has a walker but continues to fail to use it and despite being given food and prompts does not eat well recently. In ED CT head was negative for acute hemorrhage. BP was noted 230/130. CK 659, trop 0.925, BNP 9464, lactate 2.6, AST 54, glucose 168. Past Medical History Cardiovascular: HTN, Hyperlipidemia Pulmonary: No pertinent hx CENTRAL NERVOUS SYSTEM: Dementia GI: No pertinent hx Heme/Onc: No pertinent hx Hepatobiliary: No pertinent hx Psych: Anxiety Musculoskeletal: Osteoarthritis Rheumatologic: No pertinent hx Infectious disease: No pertinent hx Renal/: Urinary Incontinence Endocrine: No pertinent hx, Osteoporosis Past Surgical History Cholecystectomy, Total hip replacement Family History Unknown ALLERGY: Unknown MEDICATIONS: Refer to [facility] SOCIAL HISTORY: Lives at home. Denies smoking, drinking, and illicit drug use. REVIEW OF SYSTEMS: Constitutional: Under weight. Head: No traumatic brain or head injury. Skin: No edema, or rash. Ear: No infection. Eyes: No vision loss or color blindness. Nose: No bleeding or purulent discharges. Hearing: Hearing decrease. Neck: No injury. Breast: No history of cancer, masses,or discharges. Cardiac: CHF, HTN, HLD. Pulmonary: No COPD. GI: No GI ulcer, GI bleeding. Urinary/genital: UTI. Endocrinologic: Hypothyroidism. Skeletomuscular: No muscular atrophy, deformity. Neurological: see HP. Psychiatric: Denies drug use/abuse. Otherwise, not [id number] review of systems. PHYSICAL EXAMINATION: General appearance is in subacute distress. HEENT: Normocephalic and nontraumatic. Eyes, nose, ears, and throat are unremarkable. Neck is supple. No lymphadenopathy. No bruits are heard over the carotid artery. No crepitus. Cardiovascular: S1, S2, regular rate and rhythm. Pulmonary: Clear to auscultation bilaterally. Abdomen: Bowel sounds are positive. Abdomen is soft, nontender, and nondistended. Extremities: No rash, lesions, or edema. No restriction of range of motion NEUROLOGICAL EXAMINATION: Drowsiness. Not oriented to time, place and person. PERRL. EOMI. CN: no focal findings. Muscle tone: increased. Muscle strength: 4 DTR: 1-2 Plantar reflex: Neutral response bilaterally Gait: not examined in bed. Sensory exam: no abnormal findings. Not able to access cerebellar signs. F-T-N test not performed due to not follow commands. Current Medications Current Medications Current Medications Labetalol HCl (Normodyne Iv Push) 20 mg 1X ONCE IVP Last administered on 01/24/19at 14:10; Start 01/24/19 at 13:30; Stop 01/24/19 at 13:31; Status DC Sodium Chloride 1,000 ml @ 100 mls/hr Q10H IV Last administered on 01/24/19at 14:59; Start 01/24/19 at 13:35; Stop 01/25/19 at 13:34 Ascorbic Acid (Vitamin C) 500 mg DAILY PO ; Start 01/25/19 at 09:00 Aspirin (Ecotrin) 81 mg DAILYWBKFT PO ; Start 01/24/19 at 16:15 Vitamin D (Vitamin D3) 2,000 unit DAILY PO ; Start 01/25/19 at 09:00 Acetaminophen/ Hydrocodone Bitart (Lortab 5/325) 1 tab PRN Q4HRS PRN PO MODERATE PAIN, SEVERE PAIN; Start 01/24/19 at 16:15 Lisinopril (Prinivil) 40 mg DAILY PO ; Start 01/25/19 at 09:00 Metoprolol Succinate (Toprol Xl) 12.5 mg DAILY PO ; Start 01/25/19 at 09:00 Lidocaine (Lidoderm) 1 patch DAILY TD ; Start 01/25/19 at 09:00 Memantine (Namenda) 10 mg BID PO ; Start 01/24/19 at 21:00 Sertraline HCl (Zoloft) 100 mg DAILY PO ; Start 01/25/19 at 09:00 Enalaprilat (Vasotec Inj) 2.5 mg PRN Q6HRS PRN IVP HYPERTENSION, SEE COMMENTS Last administered on 01/24/19at 16:30; Start 01/24/19 at 16:15 Ondansetron HCl (Zofran) 4 mg PRN Q6HRS PRN IV NAUSEA/VOMITING; Start 01/24/19 at 16:15 Senna/Docusate Sodium (Senna Plus) 1 tab BID PRN PO CONSTIPATION; Start 01/24/19 at 16:15 Polyethylene Glycol (miraLAX PACKET) 17 gm DAILY PO ; Start 01/24/19 at 16:15 Enoxaparin Sodium (Lovenox 40mg Syringe) 40 mg Q24H SQ Last administered on 01/24/19at 18:27; Start 01/24/19 at 18:00 Labetalol HCl (Normodyne Iv Push) 10 mg PRN Q4HRS PRN IVP HYPERTENSION, SEE COMMENTS; Start 01/24/19 at 18:45 Simvastatin (Zocor) 10 mg QHS PO ; Start 01/24/19 at 21:00 Active Scripts Active Lisinopril 40 Mg Tablet 40 Mg PO DAILY MDD 1 Lidocaine 1 Each Adh..patch 1 Patch TD DAILY MDD 1 Vitamin C (Ascorbic Acid) 500 Mg Tablet 500 Mg PO DAILY MDD 1 Aspirin Ec (Aspirin) 81 Mg Tablet.dr 81 Mg PO DAILYWBKFT MDD 1 Hydrocodone-Apap 5-325 (Hydrocodone Bit/Acetaminophen) 1 Tab Tablet 1 Tab PO PRN Q4HRS PRN MDD 1 Metoprolol Succinate ( Xl ) (Metoprolol Succinate) 25 Mg Tab.er.24h 12.5 Mg PO DAILY MDD 1 Reported Vitamin D3 (Cholecalciferol (Vitamin D3)) 1,000 Unit Tablet 2,000 Unit PO DAILY Sertraline Hcl 100 Mg Tablet 100 Mg PO DAILY Namenda (Memantine Hcl) 10 Mg Tablet 28 Mg PO DAILY Allergies Allergies: Allergies Coded Allergies Type Severity Reaction Last Updated Verified No Known Drug Allergies 08/11/16 No ROS Review of System The patient denies any associated fevers, chills, headache, ear pain, rhinorrhea, sore throat, stiff neck, productive cough, chest pain, shortness of breath, back or flank pain, abdominal pain, nausea, vomiting, diarrhea, constipation, dysuria, rash, numbness, weakness, tingling, incontinence, difficulty ambulating, or diaphoresis. Physical Exam Physical Exam General: Well developed, well nourished, no acute distress, well appearing HEENT: Pupils equally round and reactive to light, EOMI, no discharge, normal conjunctiva Neck: Supple, no nuchal rigidity, no JVD, trachea midline, no tenderness Cardiac: RRR, no murmurs, no gallops, no rubs Chest/Lungs: CTAB, no wheeze, no rhonchi, no crackles Abdomen: soft, non-distended, no guarding, no peritoneal signs, non-tender Back: No tenderness Extremities: no edema, pulses intact, non-tender,capillary refill <3 sec bilateral upper and lower extremities, Neuro: Alert and oriented x 4, no focal deficits, normal speech Vitals Vitals: Vital Signs Date Time Temp Pulse Resp B/P (MAP) Pulse Ox O2 Delivery O2 Flow Rate FiO2 01/24/19 18:29 97.9 168/79 (108) 97.9 01/24/19 16:50 Room Air 01/24/19 16:30 84 01/24/19 15:29 20 98 Labs Labs Laboratory Tests Test 01/24/19 12:05 01/24/19 13:00 Urine Collection Type U cath Urine Color Yellow Urine Clarity Clear Urine pH 7.0 Urine Specific [place] 1.015 Urine Protein 100 mg/dL (NEG-TRACE) Urine Glucose (UA) Negative mg/dL (NEG) Urine Ketones (Stick) Negative mg/dL (NEG) Urine Blood Small (NEG) Urine Nitrite Negative (NEG) Urine Bilirubin Negative (NEG) Urine Urobilinogen Dipstick 0.2 mg/dL (0.2 mg/dL) Urine Leukocyte Esterase Negative (NEG) Urine RBC 1-2 /HPF (0-2) Urine WBC 1-4 /HPF (0-4) Urine Transitional Epithelial Cells Few /LPF Urine Bacteria 0 /HPF (0-FEW) Urine Hyaline Casts Moderate /HPF Urine Mucus Slight /LPF White Blood Count 10.7 x10^3/uL (4.0-11.0) Red Blood Count 4.78 x10^6/uL (3.50-5.40) Hemoglobin 14.2 g/dL (12.0-15.5) Hematocrit 42.5 % (36.0-47.0) Mean Corpuscular Volume 89 fL (79-100) Mean Corpuscular Hemoglobin 30 pg (25-35) Mean Corpuscular Hemoglobin Concent 33 g/dL (31-37) Red Cell Distribution Width 14.2 % (11.5-14.5) Platelet Count 271 x10^3/uL (140-400) Neutrophils (%) (Auto) 90 % (31-73) Lymphocytes (%) (Auto) 6 % (24-48) Monocytes (%) (Auto) 4 % (0-9) Eosinophils (%) (Auto) 0 % (0-3) Basophils (%) (Auto) 0 % (0-3) Neutrophils # (Auto) 9.7 x10^3uL (1.8-7.7) Lymphocytes # (Auto) 0.6 x10^3/uL (1.0-4.8) Monocytes # (Auto) 0.4 x10^3/uL (0.0-1.1) Eosinophils # (Auto) 0.0 x10^3/uL (0.0-0.7) Basophils # (Auto) 0.0 x10^3/uL (0.0-0.2) Segmented Neutrophils % 80 % (35-66) Band Neutrophils % 14 % (0-9) Lymphocytes % 5 % (24-48) Atypical Lymphocytes % (Manual) 1 % (0-0) Platelet Estimate Adequate (ADEQUATE) Sodium Level 145 mmol/L (136-145) Potassium Level 3.9 mmol/L (3.5-5.1) Chloride Level 102 mmol/L (98-107) Carbon Dioxide Level 29 mmol/L (21-32) Anion Gap 14 (6-14) Blood Urea Nitrogen 10 mg/dL (7-20) Creatinine 1.0 mg/dL (0.6-1.0) Estimated GFR (Cockcroft-Gault) 53.0 BUN/Creatinine Ratio 10 (6-20) Glucose Level 168 mg/dL (70-99) Lactic Acid Level 2.6 mmol/L (0.4-2.0) Calcium Level 9.5 mg/dL (8.5-10.1) Magnesium Level 1.8 mg/dL (1.8-2.4) Total Bilirubin 0.6 mg/dL (0.2-1.0) Aspartate Amino Transf (AST/SGOT) 54 U/L (15-37) Alanine Aminotransferase (ALT/SGPT) 41 U/L (14-59) Alkaline Phosphatase 86 U/L (46-116) Creatine Kinase 659 U/L (26-192) Troponin I Quantitative 0.925 ng/mL (0.000-0.055) RU-Ram-P-Type Natriuretic Peptide 9464 pg/mL (0-449) Total Protein 6.9 g/dL (6.4-8.2) Albumin 3.8 g/dL (3.4-5.0) Albumin/Globulin Ratio 1.2 (1.0-1.7) Laboratory Tests Test 01/24/19 12:05 01/24/19 13:00 Urine Collection Type U cath Urine Color Yellow Urine Clarity Clear Urine pH 7.0 Urine Specific [place] 1.015 Urine Protein 100 mg/dL (NEG-TRACE) Urine Glucose (UA) Negative mg/dL (NEG) Urine Ketones (Stick) Negative mg/dL (NEG) Urine Blood Small (NEG) Urine Nitrite Negative (NEG) Urine Bilirubin Negative (NEG) Urine Urobilinogen Dipstick 0.2 mg/dL (0.2 mg/dL) Urine Leukocyte Esterase Negative (NEG) Urine RBC 1-2 /HPF (0-2) Urine WBC 1-4 /HPF (0-4) Urine Transitional Epithelial Cells Few /LPF Urine Bacteria 0 /HPF (0-FEW) Urine Hyaline Casts Moderate /HPF Urine Mucus Slight /LPF White Blood Count 10.7 x10^3/uL (4.0-11.0) Red Blood Count 4.78 x10^6/uL (3.50-5.40) Hemoglobin 14.2 g/dL (12.0-15.5) Hematocrit 42.5 % (36.0-47.0) Mean Corpuscular Volume 89 fL (79-100) Mean Corpuscular Hemoglobin 30 pg (25-35) Mean Corpuscular Hemoglobin Concent 33 g/dL (31-37) Red Cell Distribution Width 14.2 % (11.5-14.5) Platelet Count 271 x10^3/uL (140-400) Neutrophils (%) (Auto) 90 % (31-73) Lymphocytes (%) (Auto) 6 % (24-48) Monocytes (%) (Auto) 4 % (0-9) Eosinophils (%) (Auto) 0 % (0-3) Basophils (%) (Auto) 0 % (0-3) Neutrophils # (Auto) 9.7 x10^3uL (1.8-7.7) Lymphocytes # (Auto) 0.6 x10^3/uL (1.0-4.8) Monocytes # (Auto) 0.4 x10^3/uL (0.0-1.1) Eosinophils # (Auto) 0.0 x10^3/uL (0.0-0.7) Basophils # (Auto) 0.0 x10^3/uL (0.0-0.2) Segmented Neutrophils % 80 % (35-66) Band Neutrophils % 14 % (0-9) Lymphocytes % 5 % (24-48) Atypical Lymphocytes % (Manual) 1 % (0-0) Platelet Estimate Adequate (ADEQUATE) Sodium Level 145 mmol/L (136-145) Potassium Level 3.9 mmol/L (3.5-5.1) Chloride Level 102 mmol/L (98-107) Carbon Dioxide Level 29 mmol/L (21-32) Anion Gap 14 (6-14) Blood Urea Nitrogen 10 mg/dL (7-20) Creatinine 1.0 mg/dL (0.6-1.0) Estimated GFR (Cockcroft-Gault) 53.0 BUN/Creatinine Ratio 10 (6-20) Glucose Level 168 mg/dL (70-99) Lactic Acid Level 2.6 mmol/L (0.4-2.0) Calcium Level 9.5 mg/dL (8.5-10.1) Magnesium Level 1.8 mg/dL (1.8-2.4) Total Bilirubin 0.6 mg/dL (0.2-1.0) Aspartate Amino Transf (AST/SGOT) 54 U/L (15-37) Alanine Aminotransferase (ALT/SGPT) 41 U/L (14-59) Alkaline Phosphatase 86 U/L (46-116) Creatine Kinase 659 U/L (26-192) Troponin I Quantitative 0.925 ng/mL (0.000-0.055) UO-Fkt-W-Type Natriuretic Peptide 9464 pg/mL (0-449) Total Protein 6.9 g/dL (6.4-8.2) Albumin 3.8 g/dL (3.4-5.0) Albumin/Globulin Ratio 1.2 (1.0-1.7) SAM SANCHEZ MD January 24, 2019 19:41
[2019-01-24] MEDS: SIMVASTATIN 10 MG TABLET PO SCH (21:00)
[2019-01-24] MEDS: MEMANTINE 10 MG TABLET. PO SCH (21:00)
[2019-01-24 23:05] VITALS: BP 194/85
[2019-01-25] VITALS (8 sets, daily range): BP systolic 164–182; BP diastolic 64–85
[2019-01-25] MEDS: IV NORMAL SALINE 1000ML BAG 1,000 ML IV SCH ×2 (01:25→12:36)
[2019-01-25] MEDS: ENALAPRILAT 2.5 MG/2 ML VIAL. IVP PRN (06:13)
[2019-01-25 06:37] LABS: CALCIUM 8.7 mg/dL (8.5-10.1); CREATININE 0.9 mg/dL (0.6-1.0); GFR 59.8; POTASSIUM 3.5 mmol/L (3.5-5.1)
[2019-01-25] MEDS: ASPIRIN ENTERIC COATED 81 MG TABLET.DR. PO SCH (08:00)
--- NOTE | 2019-01-25 08:13 | RAD ---
CHEST AP ONLY Clinical Indication: Fever, confusion Comparison: 01/18/2019 AP view of the chest. Findings: The cardiomediastinal silhouette is normal. Nodular opacity at the right lateral lung field is again seen.. There is no pneumothorax. No pleural effusion is appreciated. No acute bone abnormality. Levo convexity thoracic spine is noted. IMPRESSION: No acute cardiopulmonary process. Right lateral lower lung field opacity is present. This is similar upon correlation with the previous exam. Correlate with prior exams recommended to assess stability. Interval follow-up in 4 months to assess stability is recommended if stability is unknown. Electronically signed by: Feliz Conley MD (01/25/2019 8:10 AM) [facility]
[2019-01-25] MEDS: SERTRALINE 50 MG TABLET. PO SCH (09:00)
[2019-01-25] MEDS: LISINOPRIL 20 MG TABLET PO SCH (09:00)
[2019-01-25] MEDS: METOPROLOL SUCC 24HR ER 25 MG TAB.ER.24H. PO SCH (09:00)
[2019-01-25] MEDS: MEMANTINE 10 MG TABLET. PO SCH ×2 (09:00→20:56)
[2019-01-25] MEDS: ASCORBIC ACID 500 MG TABLET PO SCH (09:00)
[2019-01-25] MEDS: CHOLECALCIFEROL (VITAMIN D3) 1,000 UNIT TABLET PO SCH (09:00)
[2019-01-25] MEDS: POLYETHYLENE GLYCOL 3350 17 GM PACKET. PO SCH (09:00)
[2019-01-25] MEDS ORDERED: METOPROLOL TARTRATE 5 MG/5 ML VIAL. IVP ONE (11:00)
--- NOTE | 2019-01-25 11:09 | PDOC2 ---
CARDIAC CONSULT DATE OF CONSULT Date of Consult DATE: 01/25/19 TIME: 10:39 REASON FOR CONSULT Reason for Consult: Elevated trop REFERRING PHYSICIAN Referring Physician: Matheus SOURCE Source: Caregiver (spouse), Chart review HISTORY OF PRESENT ILLNESS HISTORY OF PRESENT ILLNESS This is an 83 yo female admitted for complains of altered mental status. Pt has significant alzheimers and was seen recently as an inpt. She was discharged last week. she was actually doing good, able to walk and talk till Thursday to which was noted not to be able to walk and talk. Presently she tracks with her eyes utters word hello otherwise appears weak but in no distress. No noted chest pain or SOA. She does have occasinal burst of SVT mainly sinus tach with elevated BP. She has not had anything to eat or drink since Thursday due to her mentation. No further falls since her event on her prior admission. PAST MEDICAL HISTORY Past Medical History Cardiovascular: HTN, Hyperlipidemia, metoprolol induced bradycardia Pulmonary: No pertinent hx CENTRAL NERVOUS SYSTEM: alzheimers dementia GI: No pertinent hx Heme/Onc: No pertinent hx Hepatobiliary: No pertinent hx Psych: Anxiety Musculoskeletal: Osteoarthritis Rheumatologic: No pertinent hx Infectious disease: No pertinent hx ENT: No pertinent hx Renal/: Urinary Incontinence Endocrine: tyhroid nodule Osteoporosis Dermatology: No pertinent hx PAST SURGICAL HISTORY Past Surgical History Cholecystectomy, Total hip replacement (left) FAMILY HISTORY Family History noncontributory to age SOCIAL HISTORY Smoke: No ALCOHOL: none Drugs: None Lives: with Family CURRENT MEDICATIONS CURRENT MEDICATIONS Current Medications Medications (Trade) Dose Ordered Sig/Robin Route PRN Reason Start Time Stop Time Status Last Admin Dose Admin Labetalol HCl (Normodyne Iv Push) 20 mg 1X ONCE IVP 01/24/19 13:30 01/24/19 13:31 DC 01/24/19 14:10 Sodium Chloride 1,000 ml @ 100 mls/hr Q10H IV 01/24/19 13:35 01/25/19 13:34 01/25/19 01:25 Enalaprilat (Vasotec Inj) 2.5 mg PRN Q6HRS PRN IVP HYPERTENSION, SEE COMMENTS 01/24/19 16:15 01/25/19 06:13 Enoxaparin Sodium (Lovenox 40mg Syringe) 40 mg Q24H SQ 01/24/19 18:00 01/24/19 18:27 ALLERGIES ALLERGIES: Coded Allergies: No Known Drug Allergies (Unverified , 08/11/16) ROS Review of System unreliable PHYSICAL EXAM General: Alert, No acute distress HEENT: Atraumatic, Mucous membr. moist/pink Lungs: Other (diminished bases) Heart: Other (sinus tach; 3/6 erb diastolic murmur) Abdomen: Soft, No tenderness Extremities: No cyanosis, No edema Skin: Other (right elbow wound from fall) Neuro: Other (nonverbal, tracks with eyes) Psych/Mental Status: Other (flat affect) MUSCULOSKELETAL: Osteoarthritic changes both hands VITALS VITALS Vital Signs Date Time Temp Pulse Resp B/P (MAP) Pulse Ox O2 Delivery O2 Flow Rate FiO2 01/25/19 09:00 98.3 95 172/83 (112) 95 Room Air 98.3 01/25/19 03:30 22 LABS Lab: Laboratory Tests Test 01/24/19 12:05 01/24/19 13:00 01/25/19 01:25 01/25/19 05:08 Urine Collection Type U cath Urine Color Yellow Urine Clarity Clear Urine pH 7.0 Urine Specific [place] 1.015 Urine Protein 100 mg/dL (NEG-TRACE) Urine Glucose (UA) Negative mg/dL (NEG) Urine Ketones (Stick) Negative mg/dL (NEG) Urine Blood Small (NEG) Urine Nitrite Negative (NEG) Urine Bilirubin Negative (NEG) Urine Urobilinogen Dipstick 0.2 mg/dL (0.2 mg/dL) Urine Leukocyte Esterase Negative (NEG) Urine RBC 1-2 /HPF (0-2) Urine WBC 1-4 /HPF (0-4) Urine Transitional Epithelial Cells Few /LPF Urine Bacteria 0 /HPF (0-FEW) Urine Hyaline Casts Moderate /HPF Urine Mucus Slight /LPF White Blood Count 10.7 x10^3/uL (4.0-11.0) Red Blood Count 4.78 x10^6/uL (3.50-5.40) Hemoglobin 14.2 g/dL (12.0-15.5) Hematocrit 42.5 % (36.0-47.0) Mean Corpuscular Volume 89 fL (79-100) Mean Corpuscular Hemoglobin 30 pg (25-35) Mean Corpuscular Hemoglobin Concent 33 g/dL (31-37) Red Cell Distribution Width 14.2 % (11.5-14.5) Platelet Count 271 x10^3/uL (140-400) Neutrophils (%) (Auto) 90 % (31-73) Lymphocytes (%) (Auto) 6 % (24-48) Monocytes (%) (Auto) 4 % (0-9) Eosinophils (%) (Auto) 0 % (0-3) Basophils (%) (Auto) 0 % (0-3) Neutrophils # (Auto) 9.7 x10^3uL (1.8-7.7) Lymphocytes # (Auto) 0.6 x10^3/uL (1.0-4.8) Monocytes # (Auto) 0.4 x10^3/uL (0.0-1.1) Eosinophils # (Auto) 0.0 x10^3/uL (0.0-0.7) Basophils # (Auto) 0.0 x10^3/uL (0.0-0.2) Segmented Neutrophils % 80 % (35-66) Band Neutrophils % 14 % (0-9) Lymphocytes % 5 % (24-48) Atypical Lymphocytes % (Manual) 1 % (0-0) Platelet Estimate Adequate (ADEQUATE) Sodium Level 145 mmol/L (136-145) 143 mmol/L (136-145) Potassium Level 3.9 mmol/L (3.5-5.1) 3.5 mmol/L (3.5-5.1) Chloride Level 102 mmol/L (98-107) 104 mmol/L (98-107) Carbon Dioxide Level 29 mmol/L (21-32) 25 mmol/L (21-32) Anion Gap 14 (6-14) 14 (6-14) Blood Urea Nitrogen 10 mg/dL (7-20) 9 mg/dL (7-20) Creatinine 1.0 mg/dL (0.6-1.0) 0.9 mg/dL (0.6-1.0) Estimated GFR (Cockcroft-Gault) 53.0 59.8 BUN/Creatinine Ratio 10 (6-20) Glucose Level 168 mg/dL (70-99) 116 mg/dL (70-99) Lactic Acid Level 2.6 mmol/L (0.4-2.0) Calcium Level 9.5 mg/dL (8.5-10.1) 8.7 mg/dL (8.5-10.1) Magnesium Level 1.8 mg/dL (1.8-2.4) Total Bilirubin 0.6 mg/dL (0.2-1.0) Aspartate Amino Transf (AST/SGOT) 54 U/L (15-37) Alanine Aminotransferase (ALT/SGPT) 41 U/L (14-59) Alkaline Phosphatase 86 U/L (46-116) Creatine Kinase 659 U/L (26-192) 711 U/L (26-192) Troponin I Quantitative 0.925 ng/mL (0.000-0.055) 0.979 ng/mL (0.000-0.055) 0.897 ng/mL (0.000-0.055) VR-Qkw-I-Type Natriuretic Peptide 9464 pg/mL (0-449) Total Protein 6.9 g/dL (6.4-8.2) Albumin 3.8 g/dL (3.4-5.0) Albumin/Globulin Ratio 1.2 (1.0-1.7) ECHOCARDIOGRAM ECHOCARDIOGRAM <Conclusion> The left ventricular systolic function is normal. The Ejection Fraction is 55-60%. There is normal LV segmental wall motion. Mild aortic regurgitation. Trace mitral regurgitation. There is no evidence of significant pericardial effusion. DATE: 01/19/19 1018 ASSESSMENT/PLAN ASSESSMENT/PLAN 1. Encephalopathy vs CVA syndrome with underlying alzheimers dementia 2. Reactive sinus tach: prior admission noted with PSVT and BB related bradycardia. 3. HTN: labile 4. Elevated troponin: possibly demand mediated, type 2. prior admission at 0.1 currently peaked at 0.9. EKG no changes by comparison. Recent EF/WM nml. 5. Alzheimers dementia/debility 6. Hx of ataxia with multiple falls. 7. Mild rhabdomyolysis/dehydration 8. DLP Recommendations 1. Await MRI. Rectal ASA if unable to provide PO. 2. Discussed with spouse and reaffirm conservative measures only. 3. Limited TTE and note any changes to LV and EF. 4. x1 Metoprolol IV and await neuro workup per neurology. IV hydrate. HERMAN FLORIAN APRN January 25, 2019 11:09
[2019-01-25] MEDS: LIDOCAINE (700MG/PATCH) PATCH. TD SCH (11:33)
--- NOTE | 2019-01-25 12:36 | NUR ---
SS following for discharge planning. SS reviewed pt chart. Pt is from home with family and is currently on services with [facility], ; fax [phone]. Pt is currently on room air. SS will continue to follow for discharge planning.
--- NOTE | 2019-01-25 12:55 | CARD ---
MR#: [id number] Date of Study: 01/25/2019 Ordering Physician: HERMAN FLORIAN, Referring Physician: GRABIEL MACHUCA Tech: Sabine Parks LILIAM APPROVED REPORT EXAM: LIMITED Two-dimensional echocardiogram Other Information Quality : Good INDICATION Elevated Troponin LEFT VENTRICLE The left ventricular systolic function is normal and the ejection fraction is within normal range. Th e Ejection Fraction is 55-60%. There is normal LV segmental wall motion. RIGHT VENTRICLE The right ventricle is normal size. There is normal right ventricular wall thickness. The right ventr icular systolic function is normal. ATRIA The left atrium size is normal. The right atrium size is normal. The interatrial septum is intact wit h no evidence for an atrial septal defect or patent foramen ovale as noted on 2-D or Doppler imaging. MITRAL VALVE The mitral valve is thickened but opens well. TRICUSPID VALVE The tricuspid valve is normal in structure and function. GREAT VESSELS The aortic root is normal in size. PERICARDIAL EFFUSION There is no evidence of significant pericardial effusion. Critical Notification Critical Value: No <Conclusion> The left ventricular systolic function is normal and the ejection fraction is within normal range. Th e Ejection Fraction is 55-60%. There is normal LV segmental wall motion. Signed by : Neo Fried, Electronically Approved : 01/25/2019 12:54:58
--- NOTE | 2019-01-25 14:33 | PDOC ---
[employer] PROGRESS NOTE Chief Complaint Chief Complaint Acute encephalopathy - likely hypertensive encephalopathy, metabolic. HTN urgency - with end organ dysfunction Rhabdomyolysis - with AST elevation, CPK elevation. Elevated troponin - high of 0.925. Possible demand from accelerated HTN Falls Severe osteoporosis Urinary incontinence SVT 01/18/19, spont converted with no intervention Cervical C3-C4 disc bulges Moderate protein calorie malnutrition Alzheimer dementia- advanced per family History of Present Illness History of Present Illness Patient seen and examined Resting in NAD, still encephalopathic Discussed with nurse Discussed with MRI being done today Vitals Vitals Vital Signs Date Time Temp Pulse Resp B/P (MAP) Pulse Ox O2 Delivery O2 Flow Rate FiO2 01/25/19 11:23 105 175/85 01/25/19 11:00 98.3 18 95 Room Air 98.3 Physical Exam General: Alert, No acute distress Heart: Other (sinus tach; 3/6 erb diastolic murmur) Abdomen: Soft, No tenderness Extremities: No cyanosis, No edema Skin: Other (right elbow wound from fall) Labs LABS Laboratory Tests Test 01/25/19 01:25 01/25/19 05:08 Troponin I Quantitative 0.979 ng/mL (0.000-0.055) 0.897 ng/mL (0.000-0.055) Sodium Level 143 mmol/L (136-145) Potassium Level 3.5 mmol/L (3.5-5.1) Chloride Level 104 mmol/L (98-107) Carbon Dioxide Level 25 mmol/L (21-32) Anion Gap 14 (6-14) Blood Urea Nitrogen 9 mg/dL (7-20) Creatinine 0.9 mg/dL (0.6-1.0) Estimated GFR (Cockcroft-Gault) 59.8 Glucose Level 116 mg/dL (70-99) Calcium Level 8.7 mg/dL (8.5-10.1) Creatine Kinase 711 U/L (26-192) Review of Systems Review of Systems ROS unable to obtain Assessment and Plan Assessmemt and Plan Problems Medical Problems: (1) Altered level of consciousness Status: Acute (2) Dementia Status: Acute (3) Hypertensive urgency Status: Acute Assessment: Acute encephalopathy - likely hypertensive encephalopathy, metabolic. HTN urgency - with end organ dysfunction Rhabdomyolysis - with AST elevation, CPK elevation. Elevated troponin - high of 0.925. Possible demand from accelerated HTN Falls Severe osteoporosis Urinary incontinence SVT 01/18/19, spont converted with no intervention Cervical C3-C4 disc bulges Moderate protein calorie malnutrition Alzheimer dementia- advanced per family Plan: Awaiting MRI results Cardiac monitoring Serial Enzymes Serial EKGs Labs Home meds DVT ppx Code: DNR/DNI Cardiology and Neurology consulted Comment Review of Relevant I have reviewed the following items ivana (where applicable) has been applied. Labs Laboratory Tests Test 01/24/19 12:05 01/24/19 13:00 01/25/19 01:25 01/25/19 05:08 Urine Collection Type U cath Urine Color Yellow Urine Clarity Clear Urine pH 7.0 Urine Specific [place] 1.015 Urine Protein 100 mg/dL (NEG-TRACE) Urine Glucose (UA) Negative mg/dL (NEG) Urine Ketones (Stick) Negative mg/dL (NEG) Urine Blood Small (NEG) Urine Nitrite Negative (NEG) Urine Bilirubin Negative (NEG) Urine Urobilinogen Dipstick 0.2 mg/dL (0.2 mg/dL) Urine Leukocyte Esterase Negative (NEG) Urine RBC 1-2 /HPF (0-2) Urine WBC 1-4 /HPF (0-4) Urine Transitional Epithelial Cells Few /LPF Urine Bacteria 0 /HPF (0-FEW) Urine Hyaline Casts Moderate /HPF Urine Mucus Slight /LPF White Blood Count 10.7 x10^3/uL (4.0-11.0) Red Blood Count 4.78 x10^6/uL (3.50-5.40) Hemoglobin 14.2 g/dL (12.0-15.5) Hematocrit 42.5 % (36.0-47.0) Mean Corpuscular Volume 89 fL (79-100) Mean Corpuscular Hemoglobin 30 pg (25-35) Mean Corpuscular Hemoglobin Concent 33 g/dL (31-37) Red Cell Distribution Width 14.2 % (11.5-14.5) Platelet Count 271 x10^3/uL (140-400) Neutrophils (%) (Auto) 90 % (31-73) Lymphocytes (%) (Auto) 6 % (24-48) Monocytes (%) (Auto) 4 % (0-9) Eosinophils (%) (Auto) 0 % (0-3) Basophils (%) (Auto) 0 % (0-3) Neutrophils # (Auto) 9.7 x10^3uL (1.8-7.7) Lymphocytes # (Auto) 0.6 x10^3/uL (1.0-4.8) Monocytes # (Auto) 0.4 x10^3/uL (0.0-1.1) Eosinophils # (Auto) 0.0 x10^3/uL (0.0-0.7) Basophils # (Auto) 0.0 x10^3/uL (0.0-0.2) Segmented Neutrophils % 80 % (35-66) Band Neutrophils % 14 % (0-9) Lymphocytes % 5 % (24-48) Atypical Lymphocytes % (Manual) 1 % (0-0) Platelet Estimate Adequate (ADEQUATE) Sodium Level 145 mmol/L (136-145) 143 mmol/L (136-145) Potassium Level 3.9 mmol/L (3.5-5.1) 3.5 mmol/L (3.5-5.1) Chloride Level 102 mmol/L (98-107) 104 mmol/L (98-107) Carbon Dioxide Level 29 mmol/L (21-32) 25 mmol/L (21-32) Anion Gap 14 (6-14) 14 (6-14) Blood Urea Nitrogen 10 mg/dL (7-20) 9 mg/dL (7-20) Creatinine 1.0 mg/dL (0.6-1.0) 0.9 mg/dL (0.6-1.0) Estimated GFR (Cockcroft-Gault) 53.0 59.8 BUN/Creatinine Ratio 10 (6-20) Glucose Level 168 mg/dL (70-99) 116 mg/dL (70-99) Lactic Acid Level 2.6 mmol/L (0.4-2.0) Calcium Level 9.5 mg/dL (8.5-10.1) 8.7 mg/dL (8.5-10.1) Magnesium Level 1.8 mg/dL (1.8-2.4) Total Bilirubin 0.6 mg/dL (0.2-1.0) Aspartate Amino Transf (AST/SGOT) 54 U/L (15-37) Alanine Aminotransferase (ALT/SGPT) 41 U/L (14-59) Alkaline Phosphatase 86 U/L (46-116) Creatine Kinase 659 U/L (26-192) 711 U/L (26-192) Troponin I Quantitative 0.925 ng/mL (0.000-0.055) 0.979 ng/mL (0.000-0.055) 0.897 ng/mL (0.000-0.055) HD-Dkc-E-Type Natriuretic Peptide 9464 pg/mL (0-449) Total Protein 6.9 g/dL (6.4-8.2) Albumin 3.8 g/dL (3.4-5.0) Albumin/Globulin Ratio 1.2 (1.0-1.7) Laboratory Tests Test 01/25/19 01:25 01/25/19 05:08 Troponin I Quantitative 0.979 ng/mL (0.000-0.055) 0.897 ng/mL (0.000-0.055) Sodium Level 143 mmol/L (136-145) Potassium Level 3.5 mmol/L (3.5-5.1) Chloride Level 104 mmol/L (98-107) Carbon Dioxide Level 25 mmol/L (21-32) Anion Gap 14 (6-14) Blood Urea Nitrogen 9 mg/dL (7-20) Creatinine 0.9 mg/dL (0.6-1.0) Estimated GFR (Cockcroft-Gault) 59.8 Glucose Level 116 mg/dL (70-99) Calcium Level 8.7 mg/dL (8.5-10.1) Creatine Kinase 711 U/L (26-192) Microbiology 01/24/19 Blood Culture - Preliminary, Resulted NO GROWTH AFTER 1 DAY Medications Current Medications Labetalol HCl (Normodyne Iv Push) 20 mg 1X ONCE IVP Last administered on 01/24/19at 14:10; Start 01/24/19 at 13:30; Stop 01/24/19 at 13:31; Status DC Sodium Chloride 1,000 ml @ 100 mls/hr Q10H IV Last administered on 01/25/19at 12:36; Start 01/24/19 at 13:35; Stop 01/25/19 at 13:34; Status DC Ascorbic Acid (Vitamin C) 500 mg DAILY PO ; Start 01/25/19 at 09:00 Aspirin (Ecotrin) 81 mg DAILYWBKFT PO ; Start 01/24/19 at 16:15 Vitamin D (Vitamin D3) 2,000 unit DAILY PO ; Start 01/25/19 at 09:00 Acetaminophen/ Hydrocodone Bitart (Lortab 5/325) 1 tab PRN Q4HRS PRN PO MODERATE PAIN, SEVERE PAIN; Start 01/24/19 at 16:15 Lisinopril (Prinivil) 40 mg DAILY PO ; Start 01/25/19 at 09:00 Metoprolol Succinate (Toprol Xl) 12.5 mg DAILY PO ; Start 01/25/19 at 09:00 Lidocaine (Lidoderm) 1 patch DAILY TD Last administered on 01/25/19at 11:33; Start 01/25/19 at 09:00 Memantine (Namenda) 10 mg BID PO ; Start 01/24/19 at 21:00 Sertraline HCl (Zoloft) 100 mg DAILY PO ; Start 01/25/19 at 09:00 Enalaprilat (Vasotec Inj) 2.5 mg PRN Q6HRS PRN IVP HYPERTENSION, SEE COMMENTS Last administered on 01/25/19at 06:13; Start 01/24/19 at 16:15 Ondansetron HCl (Zofran) 4 mg PRN Q6HRS PRN IV NAUSEA/VOMITING; Start 01/24/19 at 16:15 Senna/Docusate Sodium (Senna Plus) 1 tab BID PRN PO CONSTIPATION; Start 01/24/19 at 16:15 Polyethylene Glycol (miraLAX PACKET) 17 gm DAILY PO ; Start 01/24/19 at 16:15 Enoxaparin Sodium (Lovenox 40mg Syringe) 40 mg Q24H SQ Last administered on 01/24/19at 18:27; Start 01/24/19 at 18:00 Labetalol HCl (Normodyne Iv Push) 10 mg PRN Q4HRS PRN IVP HYPERTENSION, SEE COMMENTS; Start 01/24/19 at 18:45 Simvastatin (Zocor) 10 mg QHS PO ; Start 01/24/19 at 21:00 Metoprolol Tartrate (Lopressor Vial) 5 mg 1X ONCE IVP Last administered on 01/25/19at 11:23; Start 01/25/19 at 11:00; Stop 01/25/19 at 11:01; Status DC Active Scripts Active Lisinopril 40 Mg Tablet 40 Mg PO DAILY MDD 1 Lidocaine 1 Each Adh..patch 1 Patch TD DAILY MDD 1 Vitamin C (Ascorbic Acid) 500 Mg Tablet 500 Mg PO DAILY MDD 1 Aspirin Ec (Aspirin) 81 Mg Tablet.dr 81 Mg PO DAILYWBKFT MDD 1 Hydrocodone-Apap 5-325 (Hydrocodone Bit/Acetaminophen) 1 Tab Tablet 1 Tab PO PRN Q4HRS PRN MDD 1 Metoprolol Succinate ( Xl ) (Metoprolol Succinate) 25 Mg Tab.er.24h 12.5 Mg PO DAILY MDD 1 Reported Vitamin D3 (Cholecalciferol (Vitamin D3)) 1,000 Unit Tablet 2,000 Unit PO DAILY Sertraline Hcl 100 Mg Tablet 100 Mg PO DAILY Namenda (Memantine Hcl) 10 Mg Tablet 28 Mg PO DAILY Vitals/I & O Vital Sign - Last 24 Hours 01/24/19 01/24/19 01/24/19 01/24/19 14:30 15:00 15:13 15:29 Temp 100.1 100.1 Pulse 86 89 84 84 Resp 20 14 20 20 B/P (MAP) 186/85 (118) Pulse Ox 96 97 98 98 O2 Delivery Room Air 01/24/19 01/24/19 01/24/19 01/24/19 16:30 16:50 16:51 17:50 Pulse 84 B/P (MAP) 178/96 161/94 (116) 181/84 (116) O2 Delivery Room Air 01/24/19 01/24/19 01/24/19 01/24/19 18:29 19:35 20:00 23:05 Temp 97.9 97.1 99.1 97.9 97.1 99.1 Pulse 86 90 Resp 22 22 B/P (MAP) 168/79 (108) 171/94 (119) 194/85 (121) Pulse Ox 96 95 O2 Delivery Room Air Room Air Room Air 01/24/19 01/25/19 01/25/19 01/25/19 23:29 00:30 03:30 06:13 Temp 97.9 97.9 Pulse 90 94 91 92 Resp 22 B/P (MAP) 194/85 164/68 (100) 177/80 (112) 169/69 Pulse Ox 97 O2 Delivery Room Air 01/25/19 01/25/19 01/25/1914/19 06:14 08:00 09:00 11:00 Temp 98.3 98.3 98.3 98.3 Pulse 92 95 105 Resp 18 B/P (MAP) 169/69 (102) 172/83 (112) 175/85 (115) Pulse Ox 95 95 O2 Delivery Room Air Room Air Room Air 01/25/19 11:23 Pulse 105 B/P (MAP) 175/85 Intake and Output 01/24/19 01/24/19 01/25/19 15:00 23:00 07:00 Intake Total 0 ml Balance 0 ml HANH CASTRO III DO January 25, 2019 14:33
--- NOTE | 2019-01-25 15:07 | RAD ---
MRI Brain without contrast History: Mental status changes, stiffness Technique: Multiplanar, multisequential noncontrast MR imaging was performed of the brain. Comparison: None other than head CT January 24, 2019 Findings: There is some motion degradation. There is approximate 2 cm AP by 1.2 cm transverse focus of restricted diffusion centered along the right body of corpus callosum. There is only very subtle associated T2 and FLAIR hyperintense signal. No other focus of restricted diffusion is identified. There is no midline shift. Ventricular size is within normal limits. There is mild fairly generalized supratentorial atrophy. There is minimal T2 and FLAIR hyperintense signal abnormality of the supratentorial periventricular white matter bilaterally. There is no significant hemosiderin deposition of the brain parenchyma. There has been lens surgery on the left. Right vertebral artery flow-void is small in caliber. Mastoid air cells are aerated. There is very minimal patchy ethmoid air cell mucosal thickening. Cerebellar tonsils are normal in location. There is no abnormality of pineal gland or pituitary gland. There is preserved marrow signal of the clivus. Impression: 1. 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 2. Other minimal T2 and FLAIR hyperintense signal of the supratentorial parenchyma is nonspecific although probably due to chronic microvascular ischemic disease in a patient this age. 3. There is mild generalized supratentorial atrophy. FOR INTERNAL CODING PURPOSES Critical result: Findings discussed with patient's nurse Shukri at 01/25/2019 3:03 PM. RESULT CODE: (C) Electronically signed by: Wilber Schwartz MD (01/25/2019 3:04 PM) [email or web address]
[2019-01-25] MEDS ORDERED: ACETAMINOPHEN 325 MG TABLET. PO PRN (16:00)
[2019-01-25] MEDS ORDERED: ASPIRIN RECTAL 300 MG SUPP. PR PRN (16:00)
--- NOTE | 2019-01-25 16:15 | NUR ---
Wound Care: Wound care consult for R hip skin tear and R elbow skin tear. See wound intervention. Both wounds cleansed with wound wash, Xeroform and foam applied. Coccyx red but blanchable, Calazime cream applied, pt turn to her left, pt needs turn Q2H. at bedside and informed of POC. Side rails up x2, call light within reach. Wound care to follow up 02/02.
--- NOTE | 2019-01-25 16:29 | PDOC ---
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 Metabolic encephalopathy. Hypertensive encephalopathy. Hypertensive emergency, BP 230/130 mmHg. Confusion. Stiffness. Lactic acidosis. CHF. HLD. HTN. Dementia. RECOMMENDATIONS/PLAN: BP control. ASA 325 mg rectal, daily. Maintain optimal hydration per floor team. Consulted Cardiology for elevated troponin. Continue home meds for dementia. Discussed with her at bedside on 01/25/19. HISTORY OF THE PRESENT ILLNESS: Ms Fields is an 83-y-old female w/ PMHx Alzheimer dementia who presents to ED per and adult daughter and son with altered level of consciousness. Patient has history of frequent falls and recent hospitalization on January for one day because of frequent falls and and UTI and discharged with home health care. Patient did not talk today to her family, but is usually alert and oriented 1. She has significant debility with severe osteoporosis and having right hip and 2 person max assist. No noted chest pain or SOA. She was complaining of pain last week, but it is migratory in nature, never the same location twice. Baseline chao she is noted with 1 person assist and receives home health and and receives consistent 6-8 hours daily care and at night just the . No known arrhythmias or CAD or CVA. Her gait at home was described by her daughter as staggering. She has a walker but continues to fail to use it and despite being given food and prompts does not eat well recently. In ED CT head was negative for acute hemorrhage. BP was noted 230/130. CK 659, trop 0.925, BNP 9464, lactate 2.6, AST 54, glucose 168. Past Medical History Cardiovascular: HTN, Hyperlipidemia Pulmonary: No pertinent hx CENTRAL NERVOUS SYSTEM: Dementia GI: No pertinent hx Heme/Onc: No pertinent hx Hepatobiliary: No pertinent hx Psych: Anxiety Musculoskeletal: Osteoarthritis Rheumatologic: No pertinent hx Infectious disease: No pertinent hx Renal/: Urinary Incontinence Endocrine: No pertinent hx, Osteoporosis Past Surgical History Cholecystectomy, Total hip replacement Family History Unknown ALLERGY: Unknown MEDICATIONS: Refer to [facility] SOCIAL HISTORY: Lives at home. Denies smoking, drinking, and illicit drug use. REVIEW OF SYSTEMS: Constitutional: Under weight. Head: No traumatic brain or head injury. Skin: No edema, or rash. Ear: No infection. Eyes: No vision loss or color blindness. Nose: No bleeding or purulent discharges. Hearing: Hearing decrease. Neck: No injury. Breast: No history of cancer, masses,or discharges. Cardiac: CHF, HTN, HLD. Pulmonary: No COPD. GI: No GI ulcer, GI bleeding. Urinary/genital: UTI. Endocrinologic: Hypothyroidism. Skeletomuscular: No muscular atrophy, deformity. Neurological: see HP. Psychiatric: Denies drug use/abuse. Otherwise, not [id number] review of systems. PHYSICAL EXAMINATION: General appearance is in subacute distress. HEENT: Normocephalic and nontraumatic. Eyes, nose, ears, and throat are unremarkable. Neck is supple. No lymphadenopathy. No bruits are heard over the carotid artery. No crepitus. Cardiovascular: S1, S2, regular rate and rhythm. Pulmonary: Clear to auscultation bilaterally. Abdomen: Bowel sounds are positive. Abdomen is soft, nontender, and nondistended. Extremities: No rash, lesions, or edema. No restriction of range of motion NEUROLOGICAL EXAMINATION: Drowsiness. Not oriented to time, place and person. PERRL. EOMI. CN: no focal findings. Muscle tone: increased. Muscle strength: 4 DTR: 1-2 Plantar reflex: Neutral response bilaterally Gait: not examined in bed. Sensory exam: no abnormal findings. Not able to access cerebellar signs. F-T-N test not performed due to not follow commands. Objective Objective Vital Signs Date Time Temp Pulse Resp B/P (MAP) Pulse Ox O2 Delivery O2 Flow Rate FiO2 01/25/19 11:23 105 175/85 01/25/19 11:00 98.3 18 95 Room Air 98.3 Intake and Output 01/25/19 07:00 Intake Total 0 ml Balance 0 ml Intake Oral 0 ml # Voids 4 Vitals Signs Vitals VS - Last 72 Hours, by Label Date Time Temp Pulse Resp B/P (MAP) Pulse Ox O2 Delivery O2 Flow Rate FiO2 01/25/19 11:23 105 175/85 01/25/19 11:00 98.3 105 18 175/85 (115) 95 Room Air 98.3 01/25/19 09:00 98.3 95 172/83 (112) 95 Room Air 98.3 01/25/19 08:00 Room Air 01/25/19 06:14 92 169/69 (102) 01/25/19 06:13 92 169/69 01/25/19 03:30 97.9 91 22 177/80 (112) 97 Room Air 97.9 01/25/19 00:30 94 164/68 (100) 01/24/19 23:29 90 194/85 01/24/19 23:05 99.1 90 22 194/85 (121) 95 Room Air 99.1 01/24/19 20:00 Room Air 01/24/19 19:35 97.1 86 22 171/94 (119) 96 Room Air 97.1 01/24/19 18:29 97.9 168/79 (108) 97.9 01/24/19 17:50 181/84 (116) 01/24/19 16:51 161/94 (116) 01/24/19 16:50 Room Air 01/24/19 16:30 84 178/96 01/24/19 15:29 84 20 98 01/24/19 15:13 84 20 98 01/24/19 15:00 100.1 89 14 186/85 (118) 97 Room Air 100.1 01/24/19 14:30 86 20 96 01/24/19 14:10 100 214/102 01/24/19 14:00 102 20 97 01/24/19 13:30 98 20 96 01/24/19 13:00 100 20 97 01/24/19 12:30 100 20 98 01/24/19 12:00 98.5 100 16 216/96 (136) 97 Room Air 98.5 Laboratory Laboratory Laboratory Tests Test 01/25/19 01:25 01/25/19 05:08 Troponin I Quantitative 0.979 ng/mL (0.000-0.055) 0.897 ng/mL (0.000-0.055) Sodium Level 143 mmol/L (136-145) Potassium Level 3.5 mmol/L (3.5-5.1) Chloride Level 104 mmol/L (98-107) Carbon Dioxide Level 25 mmol/L (21-32) Anion Gap 14 (6-14) Blood Urea Nitrogen 9 mg/dL (7-20) Creatinine 0.9 mg/dL (0.6-1.0) Estimated GFR (Cockcroft-Gault) 59.8 Glucose Level 116 mg/dL (70-99) Calcium Level 8.7 mg/dL (8.5-10.1) Creatine Kinase 711 U/L (26-192) Microbiology 01/24/19 Blood Culture - Preliminary, Resulted NO GROWTH AFTER 1 DAY Medication Medications Current Medications Acetaminophen (Tylenol) 650 mg PRN Q6HRS PRN PO TEMP > 100.4F; Start 01/25/19 at 16:00 Ascorbic Acid (Vitamin C) 500 mg DAILY PO ; Start 01/25/19 at 09:00 Aspirin (Aspirin Rectal Supp) 300 mg DAILY LA ; Start 01/25/19 at 16:30 Aspirin (Aspirin Rectal Supp) 300 mg PRN DAILY PRN LA IF UNABLE TO TAKE PO; Start 01/25/19 at 16:00 Enoxaparin Sodium (Lovenox 40mg Syringe) 40 mg Q24H SQ Last administered on 01/24/19at 18:27; Start 01/24/19 at 18:00 Labetalol HCl (Normodyne Iv Push) 10 mg PRN Q4HRS PRN IVP HYPERTENSION, SEE COMMENTS; Start 01/24/19 at 18:45 Lidocaine (Lidoderm) 1 patch DAILY TD Last administered on 01/25/19at 11:33; Start 01/25/19 at 09:00 Lisinopril (Prinivil) 40 mg DAILY PO ; Start 01/25/19 at 09:00 Memantine (Namenda) 10 mg BID PO ; Start 01/24/19 at 21:00 Metoprolol Succinate (Toprol Xl) 12.5 mg DAILY PO ; Start 01/25/19 at 09:00 Metoprolol Tartrate (Lopressor Vial) 5 mg 1X ONCE IVP Last administered on 01/25/19at 11:23; Start 01/25/19 at 11:00; Stop 01/25/19 at 11:01; Status DC Sertraline HCl (Zoloft) 100 mg DAILY PO ; Start 01/25/19 at 09:00 Simvastatin (Zocor) 10 mg QHS PO ; Start 01/24/19 at 21:00 Vitamin D (Vitamin D3) 2,000 unit DAILY PO ; Start 01/25/19 at 09:00 Comment Review of Relevant I have reviewed the following items ivana (where applicable) has been applied. SAM SANCHEZ MD January 25, 2019 16:29
[2019-01-25] MEDS: ASPIRIN RECTAL 300 MG SUPP. PR SCH (17:32)
[2019-01-25] MEDS: ENOXAPARIN 40 MG/0.4 ML SYRINGE. SQ SCH (17:32)
--- NOTE | 2019-01-25 18:36 | EEG ---
DATE OF SERVICE: 01/25/2019 EEG NUMBER: [id number]. OBJECTIVE: This is an 83-year-old female patient with history of prolonged mental status changes and unresponsiveness. EEG was requested to evaluate cerebral activity. METHODS: Twenty electrodes were applied according to the international 10-20 electrode placement system. EKG monitoring, hyperventilation, intermittent photic stimulation, monopolar and bipolar montages are routinely utilized. The record was obtained on a digital system with video monitoring. FINDINGS: 1. Background: The patient was recorded in the awake, drowsy, and sleep state. The overall background amplitude is variable. No posterior dominant rhythm is observed. The overall background rhythm is with diffuse slowing in theta and delta frequencies throughout the entire recording. 2. Abnormalities: No specific epileptiform discharge or electrographic seizure is seen. Diffuse slowing in the theta and delta frequencies is throughout the entire recording. 3. Activation: Hyperventilation was not performed because the patient was unable to follow the commands. Intermittent photic stimulation was performed with photic driving. IMPRESSION: This EEG is an abnormal study for the awake, drowsy, and sleep state. No posterior dominant rhythm is observed. The overall background rhythm is with diffuse slowing in the theta and delta frequencies throughout the entire recording. No lateralizing, specific epileptiform discharge or electrographic seizure is seen. This pattern of EEG is suggestive of diffuse encephalopathy. One single channel EKG showed supraventricular tachycardia of more than 180 per minute. Cardiology was already consulted and this finding was notified to Cardiology via the patient's nurse on 01/25/2019. SAM SANCHEZ MD DR: ABHISHEK/wili JOB#: [id number] / [id number] JULIO
[2019-01-25] MEDS: SIMVASTATIN 10 MG TABLET PO SCH (20:56)
[2019-01-25] MEDS: LABETALOL 20 MG/4 ML DISP.SYRIN. IVP PRN (21:00)
[2019-01-26 03:30] VITALS: BP 141/97
[2019-01-26 06:18] LABS: BASO % 0 % (0-3); EOS % 0 % (0-3); HEMATOCRIT 36.1 % (36.0-47.0); HEMOGLOBIN 12.3 g/dL (12.0-15.5); LYMPH # 1.1 x10^3/uL (1.0-4.8); LYMPH % 12 % (24-48); MEAN CORPUSCULAR HEMOGLOBIN 30 pg (25-35); MEAN CORPUSCULAR HGB CONC 34 g/dL (31-37); MEAN CORPUSCULAR VOLUME 89 fL (79-100); MONO # 0.7 x10^3/uL (0.0-1.1); MONO % 7 % (0-9); NEUT # 7.9 x10^3uL (1.8-7.7); NEUT % 81 % (31-73); PLATELET COUNT 214 x10^3/uL (140-400); RED BLOOD COUNT 4.06 x10^6/uL (3.50-5.40); RED CELL DISTRIBUTION WIDTH 14.2 % (11.5-14.5); WHITE BLOOD COUNT 9.8 x10^3/uL (4.0-11.0)
[2019-01-26 06:35] LABS: CALCIUM 8.1 mg/dL (8.5-10.1); CREATININE 0.8 mg/dL (0.6-1.0); GFR 68.5; POTASSIUM 3.2 mmol/L (3.5-5.1)
[2019-01-26 07:00] VITALS: BP 190/79
[2019-01-26] MEDS: LISINOPRIL 20 MG TABLET PO SCH (07:08)
[2019-01-26] MEDS: METOPROLOL SUCC 24HR ER 25 MG TAB.ER.24H. PO SCH (07:08)
[2019-01-26] MEDS: CHOLECALCIFEROL (VITAMIN D3) 1,000 UNIT TABLET PO SCH (07:08)
[2019-01-26] MEDS: ASCORBIC ACID 500 MG TABLET PO SCH (07:08)
[2019-01-26] MEDS: POLYETHYLENE GLYCOL 3350 17 GM PACKET. PO SCH (07:08)
[2019-01-26] MEDS: SERTRALINE 50 MG TABLET. PO SCH (07:08)
[2019-01-26] MEDS: MEMANTINE 10 MG TABLET. PO SCH ×2 (07:08→21:00)
--- NOTE | 2019-01-26 07:50 | RAD ---
Carotid ultrasound, 01/25/2019: HISTORY: CVA Duplex evaluation of the carotid arteries and neck was performed including grayscale, color-flow and spectral Doppler analysis. There is minimal smooth plaquing at the carotid bifurcations. The peak systolic velocity in the proximal right right internal carotid artery is is 60 cm per sec with an end-diastolic velocity of 19 cm/s and an internal carotid to common carotid artery ratio of 0.8. On the left the peak systolic velocity in the proximal internal carotid artery is 58 cm/s with an end-diastolic velocity of 10 cm/s and an internal carotid to common carotid artery ratio of 0.8. The Doppler findings do not suggest significant stenosis. Antegrade flow is present in both vertebral arteries in the neck. IMPRESSION: Minimal atherosclerotic plaquing at the carotid bifurcations with no duplex evidence of significant carotid stenosis. Note: Stenosis calculations for CT, MRA and conventional angiography are based upon determination of the distal ICA diameter in accordance with the NASCET methodology. Stenosis calculations for Doppler studies are derived from validated velocity criteria which are known to correlate with NASCET methodology of determining stenosis. Electronically signed by: Maury Floyd MD (01/26/2019 7:47 AM) [facility]
[2019-01-26] MEDS: METOPROLOL TARTRATE 5 MG/5 ML VIAL. IVP PRN (07:56)
[2019-01-26] MEDS: LIDOCAINE (700MG/PATCH) PATCH. TD SCH (09:10)
[2019-01-26] MEDS: ASPIRIN RECTAL 300 MG SUPP. PR SCH (09:11)
[2019-01-26 10:02] VITALS: BP 177/67
--- NOTE | 2019-01-26 10:34 | PDOC ---
PROGRESS NOTES Chief Complaint Chief Complaint Acute encephalopathy - likely hypertensive encephalopathy, metabolic. 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 minimal T2 and FLAIR hyperintense signal of the supratentorial parenchyma is nonspecific although probably due to chronic microvascular ischemic disease in a patient this age. mild generalized supratentorial atrophy. Metabolic encephalopathy. Hypertensive emergency, BP 230/130 mmHg. Confusion. Stiffness. Lactic acidosis. HTN urgency - with end organ dysfunction Rhabdomyolysis - with AST elevation, CPK elevation. Elevated troponin - high of 0.925. Possible demand from accelerated HTN Falls Severe osteoporosis Urinary incontinence SVT 01/18/19, spont converted with no intervention Cervical C3-C4 disc bulges Moderate protein calorie malnutrition Alzheimer dementia- advanced per family 46 min pt exam, chart review, > 50% of time spent with exam, chart review, pt care coordination History of Present Illness History of Present Illness Patient seen and examined Resting in NAD, still encephalopathic Discussed with nurse Discussed with MRI reviewed Vitals Vitals Vital Signs Date Time Temp Pulse Resp B/P (MAP) Pulse Ox O2 Delivery O2 Flow Rate FiO2 01/26/19 10:02 100.1 79 24 177/67 (103) 93 Nasal Cannula 2.0 100.1 Physical Exam Physical Exam General: Alert, No acute distress Heart: Other (sinus tach; 3/6 erb diastolic murmur) Abdomen: Soft, No tenderness Extremities: No cyanosis, No edema Skin: Other (right elbow wound from fall) General: Alert, Cooperative, No acute distress Heart: Other (sinus tach; 3/6 erb diastolic murmur) Abdomen: Soft, No tenderness Extremities: No cyanosis, No edema Skin: Other (right elbow wound from fall) Labs LABS MRI Brain without contrast History: Mental status changes, stiffness Technique: Multiplanar, multisequential noncontrast MR imaging was performed of the brain. Comparison: None other than head CT January 24, 2019 Findings: There is some motion degradation. There is approximate 2 cm AP by 1.2 cm transverse focus of restricted diffusion centered along the right body of corpus callosum. There is only very subtle associated T2 and FLAIR hyperintense signal. No other focus of restricted diffusion is identified. There is no midline shift. Ventricular size is within normal limits. There is mild fairly generalized supratentorial atrophy. There is minimal T2 and FLAIR hyperintense signal abnormality of the supratentorial periventricular white matter bilaterally. There is no significant hemosiderin deposition of the brain parenchyma. There has been lens surgery on the left. Right vertebral artery flow-void is small in caliber. Mastoid air cells are aerated. There is very minimal patchy ethmoid air cell mucosal thickening. Cerebellar tonsils are normal in location. There is no abnormality of pineal gland or pituitary gland. There is preserved marrow signal of the clivus. Impression: 1. 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 2. Other minimal T2 and FLAIR hyperintense signal of the supratentorial parenchyma is nonspecific although probably due to chronic microvascular ischemic disease in a patient this age. 3. There is mild generalized supratentorial atrophy. Laboratory Tests Test 01/26/19 05:39 White Blood Count 9.8 x10^3/uL (4.0-11.0) Red Blood Count 4.06 x10^6/uL (3.50-5.40) Hemoglobin 12.3 g/dL (12.0-15.5) Hematocrit 36.1 % (36.0-47.0) Mean Corpuscular Volume 89 fL (79-100) Mean Corpuscular Hemoglobin 30 pg (25-35) Mean Corpuscular Hemoglobin Concent 34 g/dL (31-37) Red Cell Distribution Width 14.2 % (11.5-14.5) Platelet Count 214 x10^3/uL (140-400) Neutrophils (%) (Auto) 81 % (31-73) Lymphocytes (%) (Auto) 12 % (24-48) Monocytes (%) (Auto) 7 % (0-9) Eosinophils (%) (Auto) 0 % (0-3) Basophils (%) (Auto) 0 % (0-3) Neutrophils # (Auto) 7.9 x10^3uL (1.8-7.7) Lymphocytes # (Auto) 1.1 x10^3/uL (1.0-4.8) Monocytes # (Auto) 0.7 x10^3/uL (0.0-1.1) Eosinophils # (Auto) 0.0 x10^3/uL (0.0-0.7) Basophils # (Auto) 0.0 x10^3/uL (0.0-0.2) Sodium Level 146 mmol/L (136-145) Potassium Level 3.2 mmol/L (3.5-5.1) Chloride Level 109 mmol/L (98-107) Carbon Dioxide Level 24 mmol/L (21-32) Anion Gap 13 (6-14) Blood Urea Nitrogen 14 mg/dL (7-20) Creatinine 0.8 mg/dL (0.6-1.0) Estimated GFR (Cockcroft-Gault) 68.5 Glucose Level 103 mg/dL (70-99) Calcium Level 8.1 mg/dL (8.5-10.1) Assessment and Plan Assessmemt and Plan Problems Medical Problems: (1) Altered level of consciousness Status: Acute (2) Dementia Status: Acute (3) Hypertensive urgency Status: Acute Comment Review of Relevant I have reviewed the following items ivana (where applicable) has been applied. Labs Laboratory Tests Test 01/24/19 12:05 01/24/19 13:00 01/25/19 01:25 01/25/19 05:08 Urine Collection Type U cath Urine Color Yellow Urine Clarity Clear Urine pH 7.0 Urine Specific [place] 1.015 Urine Protein 100 mg/dL (NEG-TRACE) Urine Glucose (UA) Negative mg/dL (NEG) Urine Ketones (Stick) Negative mg/dL (NEG) Urine Blood Small (NEG) Urine Nitrite Negative (NEG) Urine Bilirubin Negative (NEG) Urine Urobilinogen Dipstick 0.2 mg/dL (0.2 mg/dL) Urine Leukocyte Esterase Negative (NEG) Urine RBC 1-2 /HPF (0-2) Urine WBC 1-4 /HPF (0-4) Urine Transitional Epithelial Cells Few /LPF Urine Bacteria 0 /HPF (0-FEW) Urine Hyaline Casts Moderate /HPF Urine Mucus Slight /LPF White Blood Count 10.7 x10^3/uL (4.0-11.0) Red Blood Count 4.78 x10^6/uL (3.50-5.40) Hemoglobin 14.2 g/dL (12.0-15.5) Hematocrit 42.5 % (36.0-47.0) Mean Corpuscular Volume 89 fL (79-100) Mean Corpuscular Hemoglobin 30 pg (25-35) Mean Corpuscular Hemoglobin Concent 33 g/dL (31-37) Red Cell Distribution Width 14.2 % (11.5-14.5) Platelet Count 271 x10^3/uL (140-400) Neutrophils (%) (Auto) 90 % (31-73) Lymphocytes (%) (Auto) 6 % (24-48) Monocytes (%) (Auto) 4 % (0-9) Eosinophils (%) (Auto) 0 % (0-3) Basophils (%) (Auto) 0 % (0-3) Neutrophils # (Auto) 9.7 x10^3uL (1.8-7.7) Lymphocytes # (Auto) 0.6 x10^3/uL (1.0-4.8) Monocytes # (Auto) 0.4 x10^3/uL (0.0-1.1) Eosinophils # (Auto) 0.0 x10^3/uL (0.0-0.7) Basophils # (Auto) 0.0 x10^3/uL (0.0-0.2) Segmented Neutrophils % 80 % (35-66) Band Neutrophils % 14 % (0-9) Lymphocytes % 5 % (24-48) Atypical Lymphocytes % (Manual) 1 % (0-0) Platelet Estimate Adequate (ADEQUATE) Sodium Level 145 mmol/L (136-145) 143 mmol/L (136-145) Potassium Level 3.9 mmol/L (3.5-5.1) 3.5 mmol/L (3.5-5.1) Chloride Level 102 mmol/L (98-107) 104 mmol/L (98-107) Carbon Dioxide Level 29 mmol/L (21-32) 25 mmol/L (21-32) Anion Gap 14 (6-14) 14 (6-14) Blood Urea Nitrogen 10 mg/dL (7-20) 9 mg/dL (7-20) Creatinine 1.0 mg/dL (0.6-1.0) 0.9 mg/dL (0.6-1.0) Estimated GFR (Cockcroft-Gault) 53.0 59.8 BUN/Creatinine Ratio 10 (6-20) Glucose Level 168 mg/dL (70-99) 116 mg/dL (70-99) Lactic Acid Level 2.6 mmol/L (0.4-2.0) Calcium Level 9.5 mg/dL (8.5-10.1) 8.7 mg/dL (8.5-10.1) Magnesium Level 1.8 mg/dL (1.8-2.4) Total Bilirubin 0.6 mg/dL (0.2-1.0) Aspartate Amino Transf (AST/SGOT) 54 U/L (15-37) Alanine Aminotransferase (ALT/SGPT) 41 U/L (14-59) Alkaline Phosphatase 86 U/L (46-116) Creatine Kinase 659 U/L (26-192) 711 U/L (26-192) Troponin I Quantitative 0.925 ng/mL (0.000-0.055) 0.979 ng/mL (0.000-0.055) 0.897 ng/mL (0.000-0.055) DV-Bpx-D-Type Natriuretic Peptide 9464 pg/mL (0-449) Total Protein 6.9 g/dL (6.4-8.2) Albumin 3.8 g/dL (3.4-5.0) Albumin/Globulin Ratio 1.2 (1.0-1.7) Test 01/26/19 05:39 White Blood Count 9.8 x10^3/uL (4.0-11.0) Red Blood Count 4.06 x10^6/uL (3.50-5.40) Hemoglobin 12.3 g/dL (12.0-15.5) Hematocrit 36.1 % (36.0-47.0) Mean Corpuscular Volume 89 fL (79-100) Mean Corpuscular Hemoglobin 30 pg (25-35) Mean Corpuscular Hemoglobin Concent 34 g/dL (31-37) Red Cell Distribution Width 14.2 % (11.5-14.5) Platelet Count 214 x10^3/uL (140-400) Neutrophils (%) (Auto) 81 % (31-73) Lymphocytes (%) (Auto) 12 % (24-48) Monocytes (%) (Auto) 7 % (0-9) Eosinophils (%) (Auto) 0 % (0-3) Basophils (%) (Auto) 0 % (0-3) Neutrophils # (Auto) 7.9 x10^3uL (1.8-7.7) Lymphocytes # (Auto) 1.1 x10^3/uL (1.0-4.8) Monocytes # (Auto) 0.7 x10^3/uL (0.0-1.1) Eosinophils # (Auto) 0.0 x10^3/uL (0.0-0.7) Basophils # (Auto) 0.0 x10^3/uL (0.0-0.2) Sodium Level 146 mmol/L (136-145) Potassium Level 3.2 mmol/L (3.5-5.1) Chloride Level 109 mmol/L (98-107) Carbon Dioxide Level 24 mmol/L (21-32) Anion Gap 13 (6-14) Blood Urea Nitrogen 14 mg/dL (7-20) Creatinine 0.8 mg/dL (0.6-1.0) Estimated GFR (Cockcroft-Gault) 68.5 Glucose Level 103 mg/dL (70-99) Calcium Level 8.1 mg/dL (8.5-10.1) Laboratory Tests Test 01/26/19 05:39 White Blood Count 9.8 x10^3/uL (4.0-11.0) Red Blood Count 4.06 x10^6/uL (3.50-5.40) Hemoglobin 12.3 g/dL (12.0-15.5) Hematocrit 36.1 % (36.0-47.0) Mean Corpuscular Volume 89 fL (79-100) Mean Corpuscular Hemoglobin 30 pg (25-35) Mean Corpuscular Hemoglobin Concent 34 g/dL (31-37) Red Cell Distribution Width 14.2 % (11.5-14.5) Platelet Count 214 x10^3/uL (140-400) Neutrophils (%) (Auto) 81 % (31-73) Lymphocytes (%) (Auto) 12 % (24-48) Monocytes (%) (Auto) 7 % (0-9) Eosinophils (%) (Auto) 0 % (0-3) Basophils (%) (Auto) 0 % (0-3) Neutrophils # (Auto) 7.9 x10^3uL (1.8-7.7) Lymphocytes # (Auto) 1.1 x10^3/uL (1.0-4.8) Monocytes # (Auto) 0.7 x10^3/uL (0.0-1.1) Eosinophils # (Auto) 0.0 x10^3/uL (0.0-0.7) Basophils # (Auto) 0.0 x10^3/uL (0.0-0.2) Sodium Level 146 mmol/L (136-145) Potassium Level 3.2 mmol/L (3.5-5.1) Chloride Level 109 mmol/L (98-107) Carbon Dioxide Level 24 mmol/L (21-32) Anion Gap 13 (6-14) Blood Urea Nitrogen 14 mg/dL (7-20) Creatinine 0.8 mg/dL (0.6-1.0) Estimated GFR (Cockcroft-Gault) 68.5 Glucose Level 103 mg/dL (70-99) Calcium Level 8.1 mg/dL (8.5-10.1) Microbiology 01/24/19 Blood Culture - Preliminary, Resulted NO GROWTH AFTER 1 DAY Medications Current Medications Labetalol HCl (Normodyne Iv Push) 20 mg 1X ONCE IVP Last administered on 01/24/19at 14:10; Start 01/24/19 at 13:30; Stop 01/24/19 at 13:31; Status DC Sodium Chloride 1,000 ml @ 100 mls/hr Q10H IV Last administered on 01/25/19at 12:36; Start 01/24/19 at 13:35; Stop 01/25/19 at 13:34; Status DC Ascorbic Acid (Vitamin C) 500 mg DAILY PO ; Start 01/25/19 at 09:00 Aspirin (Ecotrin) 81 mg DAILYWBKFT PO ; Start 01/24/19 at 16:15; Stop 01/25/19 at 16:04; Status DC Vitamin D (Vitamin D3) 2,000 unit DAILY PO ; Start 01/25/19 at 09:00 Acetaminophen/ Hydrocodone Bitart (Lortab 5/325) 1 tab PRN Q4HRS PRN PO MODERATE PAIN, SEVERE PAIN; Start 01/24/19 at 16:15 Lisinopril (Prinivil) 40 mg DAILY PO ; Start 01/25/19 at 09:00 Metoprolol Succinate (Toprol Xl) 12.5 mg DAILY PO ; Start 01/25/19 at 09:00 Lidocaine (Lidoderm) 1 patch DAILY TD Last administered on 01/26/19at 09:10; Start 01/25/19 at 09:00 Memantine (Namenda) 10 mg BID PO ; Start 01/24/19 at 21:00 Sertraline HCl (Zoloft) 100 mg DAILY PO ; Start 01/25/19 at 09:00 Enalaprilat (Vasotec Inj) 2.5 mg PRN Q6HRS PRN IVP HYPERTENSION, SEE COMMENTS Last administered on 01/25/19at 06:13; Start 01/24/19 at 16:15 Ondansetron HCl (Zofran) 4 mg PRN Q6HRS PRN IV NAUSEA/VOMITING; Start 01/24/19 at 16:15 Senna/Docusate Sodium (Senna Plus) 1 tab BID PRN PO CONSTIPATION; Start at 16:15 Polyethylene Glycol (miraLAX PACKET) 17 gm DAILY PO ; Start 01/24/19 at 16:15 Enoxaparin Sodium (Lovenox 40mg Syringe) 40 mg Q24H SQ Last administered on 01/25/19at 17:32; Start 01/24/19 at 18:00; Stop 01/26/19 at 07:53; Status DC Labetalol HCl (Normodyne Iv Push) 10 mg PRN Q4HRS PRN IVP HYPERTENSION, SEE COMMENTS Last administered on 01/25/19at 21:00; Start 01/24/19 at 18:45 Simvastatin (Zocor) 10 mg QHS PO ; Start 01/24/19 at 21:00 Metoprolol Tartrate (Lopressor Vial) 5 mg 1X ONCE IVP Last administered on 01/25/19at 11:23; Start 01/25/19 at 11:00; Stop 01/25/19 at 11:01; Status DC Aspirin (Aspirin Rectal Supp) 300 mg DAILY ID Last administered on 01/26/19at 09:11; Start 01/25/19 at 16:30 Acetaminophen (Tylenol) 650 mg PRN Q6HRS PRN PO TEMP > 100.4F; Start 01/25/19 at 16:00 Aspirin (Aspirin Rectal Supp) 300 mg PRN DAILY PRN ID IF UNABLE TO TAKE PO; Start 01/25/19 at 16:00; Stop 01/25/19 at 16:58; Status DC Metoprolol Tartrate (Lopressor Vial) 5 mg PRN Q5MIN PRN IVP TACHYCARDIA Last administered on 01/26/19at 07:56; Start 01/26/19 at 07:45 Enoxaparin Sodium (Lovenox 30mg Syringe) 30 mg Q24H SQ ; Start 01/26/19 at 18:00 Active Scripts Active Lisinopril 40 Mg Tablet 40 Mg PO DAILY MDD 1 Lidocaine 1 Each Adh..patch 1 Patch TD DAILY MDD 1 Vitamin C (Ascorbic Acid) 500 Mg Tablet 500 Mg PO DAILY MDD 1 Aspirin Ec (Aspirin) 81 Mg Tablet.dr 81 Mg PO DAILYWBKFT MDD 1 Hydrocodone-Apap 5-325 (Hydrocodone Bit/Acetaminophen) 1 Tab Tablet 1 Tab PO PRN Q4HRS PRN MDD 1 Metoprolol Succinate ( Xl ) (Metoprolol Succinate) 25 Mg Tab.er.24h 12.5 Mg PO DAILY MDD 1 Reported Vitamin D3 (Cholecalciferol (Vitamin D3)) 1,000 Unit Tablet 2,000 Unit PO DAILY Sertraline Hcl 100 Mg Tablet 100 Mg PO DAILY Namenda (Memantine Hcl) 10 Mg Tablet 28 Mg PO DAILY Vitals/I & O Vital Sign - Last 24 Hours 01/25/19 01/25/19 01/25/19 01/25/19 11:00 11:23 15:00 19:35 Temp 98.3 97.8 99.3 98.3 97.8 99.3 Pulse 105 105 79 94 Resp 18 12 20 B/P (MAP) 175/85 (115) 175/85 170/69 (102) 182/83 (116) Pulse Ox 95 93 94 O2 Delivery Room Air Room Air Room Air 01/25/19 01/25/19 01/25/19 01/26/19 19:45 21:00 23:15 03:30 Temp 99.1 98.6 99.1 98.6 Pulse 94 88 68 Resp 20 20 B/P (MAP) 182/83 178/64 (102) 141/97 (112) Pulse Ox 95 96 O2 Delivery Room Air Room Air Room Air 01/26/19 01/26/19 01/26/19 01/26/19 07:00 07:56 08:00 10:02 Temp 98.3 100.1 98.3 100.1 Pulse 91 100 79 Resp 14 24 B/P (MAP) 190/79 (116) 190/79 177/67 (103) Pulse Ox 93 93 O2 Delivery Room Air Room Air Nasal Cannula O2 Flow Rate 2.0 Intake and Output 01/25/19 01/25/19 01/26/19 15:00 23:00 07:00 Intake Total 980 ml Balance 980 ml Nutrition Consultation Dietary Evaluation: Recommendations by RD: Increase Calorie Intake, Protein supplementation Comments: REC advance diet as able per DECORATIVE ENGRAVER APPRENTICE to goal diet cardiac w/oral supplements as able If extended NPO/unable to advance diet, recommend consideration of nutrition support (ppn, dobhoff placement for TFs) Expected Outcomes/Goals: Diet advancement Interpretation of weight loss: >1-2% in 1 week Malnutrition Findings: Food and Nutrition Intake (Sev: <50% est energy req 5days Weight Status: Underweight KENNEY BOX MD January 26, 2019 10:34
--- NOTE | 2019-01-26 12:10 | PDOC ---
CARDIO Progress Notes Date and Time Date of Service 01/26/2019 Time of Evaluation 1150 Subjective Subjective: Other (resting, no noted distress, nonverbal currently) Vitals Vitals Vital Signs Date Time Temp Pulse Resp B/P (MAP) Pulse Ox O2 Delivery O2 Flow Rate FiO2 01/26/19 10:02 100.1 79 24 177/67 (103) 93 Nasal Cannula 2.0 100.1 Weight Weight [ ] Input and Output Intake and Output Intake and Output 01/26/19 07:00 Intake Total 980 ml Balance 980 ml Intake Oral 0 ml IV Total 980 ml # Voids 4 Laboratory Labs Laboratory Tests Test 01/26/19 05:39 White Blood Count 9.8 x10^3/uL (4.0-11.0) Red Blood Count 4.06 x10^6/uL (3.50-5.40) Hemoglobin 12.3 g/dL (12.0-15.5) Hematocrit 36.1 % (36.0-47.0) Mean Corpuscular Volume 89 fL (79-100) Mean Corpuscular Hemoglobin 30 pg (25-35) Mean Corpuscular Hemoglobin Concent 34 g/dL (31-37) Red Cell Distribution Width 14.2 % (11.5-14.5) Platelet Count 214 x10^3/uL (140-400) Neutrophils (%) (Auto) 81 % (31-73) Lymphocytes (%) (Auto) 12 % (24-48) Monocytes (%) (Auto) 7 % (0-9) Eosinophils (%) (Auto) 0 % (0-3) Basophils (%) (Auto) 0 % (0-3) Neutrophils # (Auto) 7.9 x10^3uL (1.8-7.7) Lymphocytes # (Auto) 1.1 x10^3/uL (1.0-4.8) Monocytes # (Auto) 0.7 x10^3/uL (0.0-1.1) Eosinophils # (Auto) 0.0 x10^3/uL (0.0-0.7) Basophils # (Auto) 0.0 x10^3/uL (0.0-0.2) Sodium Level 146 mmol/L (136-145) Potassium Level 3.2 mmol/L (3.5-5.1) Chloride Level 109 mmol/L (98-107) Carbon Dioxide Level 24 mmol/L (21-32) Anion Gap 13 (6-14) Blood Urea Nitrogen 14 mg/dL (7-20) Creatinine 0.8 mg/dL (0.6-1.0) Estimated GFR (Cockcroft-Gault) 68.5 Glucose Level 103 mg/dL (70-99) Calcium Level 8.1 mg/dL (8.5-10.1) Microbiology Micro Microbiology 01/24/19 Blood Culture - Preliminary, Resulted NO GROWTH AFTER 1 DAY Physical Exam HEENT: Neck Supple W Full Motion Chest: Symmetric LUNGS: Other (diminished bases) Heart: S1S2, RRR (SR) Abdomen: Soft N/T Extremities: No Edema, No Calf Tenderness Neurology: non-verbal Assessment Assessment 1. Acute CVA with underlying alzheimers dementia. per neurology 2. PSVT: currently SR. bursts overnight 3. HTN: labile 4. Elevated troponin: demand mediated, type 2. peaked at 0.9. No EKG changes. EF and WM nml 5. Alzheimers dementia/debility 6. Hx of ataxia with multiple falls. 7. Mild rhabdomyolysis/dehydration 8. DLP Recommendations 1. ASA. metoprolol. Replace K. GI prophylaxis. 2. Discussed with spouse and reaffirmed conservative measures only. 3. Supportive care. HERMAN FLORIAN SENIOR NET ENGINEER January 26, 2019 12:10
[2019-01-26] MEDS ORDERED: FAMOTIDINE 20 MG TABLET. PO ONE (12:30)
[2019-01-26] MEDS ORDERED: METOPROLOL TARTRATE 5 MG/5 ML VIAL. IVP SCH (12:30)
[2019-01-26] MEDS ORDERED: POTASSIUM CHLORIDE 20 MEQ/15 ML ORAL LIQUID. PEG ONE (12:30)
--- NOTE | 2019-01-26 13:27 | NUR ---
SS following up with discharge planning. PT recommended jail unit. SS met with pt's daughter in room to discuss discharge planning and jail unit. Pt's daughter reported that family is looking at [facility] at the [facility], ; fax [phone]. SS contacted the [facility] and left message for Nadja. SS will continue to follow for discharge planning.
--- NOTE | 2019-01-26 13:36 | PDOC ---
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 Metabolic encephalopathy. Hypertensive encephalopathy. Hypertensive emergency, BP 230/130 mmHg. Confusion. Stiffness. Lactic acidosis. HLD. HTN. Dementia. RECOMMENDATIONS/PLAN: BP control. ASA 325 mg rectal, daily, change to PO ASA 325 mg after past swallow test. Zocor 10 mg HS. Maintain optimal hydration per floor team. Consulted Cardiology for elevated troponin. Continue home meds for dementia. Rehab. Discussed with her and daughter in all detail at bedside on 01/26/19. EEG on 01/25/19: diffuse encephalopathy. Brain MRI on 01/25/19: See above stroke. Carotid A US + Doppler on 01/25/19: No hemodynamically stenosis. Echo on 01/25/19: Unremarkable. Lipid panel: LDL 129. HISTORY OF THE PRESENT ILLNESS: Ms Fields is an 83-y-old female w/ PMHx Alzheimer dementia who presents to ED per and adult daughter and son with altered level of consciousness. Patient has history of frequent falls and recent hospitalization on January for one day because of frequent falls and and UTI and discharged with home health care. Patient did not talk today to her family, but is usually alert and oriented 1. She has significant debility with severe osteoporosis and having right hip and 2 person max assist. No noted chest pain or SOA. She was complaining of pain last week, but it is migratory in nature, never the same location twice. Baseline chao she is noted with 1 person assist and receives home health and and receives consistent 6-8 hours daily care and at night just the . No known arrhythmias or CAD or CVA. Her gait at home was described by her daughter as staggering. She has a walker but continues to fail to use it and despite being given food and prompts does not eat well recently. In ED CT head was negative for acute hemorrhage. BP was noted 230/130. CK 659, trop 0.925, BNP 9464, lactate 2.6, AST 54, glucose 168. Past Medical History Cardiovascular: HTN, Hyperlipidemia Pulmonary: No pertinent hx CENTRAL NERVOUS SYSTEM: Dementia GI: No pertinent hx Heme/Onc: No pertinent hx Hepatobiliary: No pertinent hx Psych: Anxiety Musculoskeletal: Osteoarthritis Rheumatologic: No pertinent hx Infectious disease: No pertinent hx Renal/: Urinary Incontinence Endocrine: No pertinent hx, Osteoporosis Past Surgical History Cholecystectomy, Total hip replacement Family History Unknown ALLERGY: Unknown MEDICATIONS: Refer to [facility] SOCIAL HISTORY: Lives at home. Denies smoking, drinking, and illicit drug use. REVIEW OF SYSTEMS: Constitutional: Under weight. Head: No traumatic brain or head injury. Skin: No edema, or rash. Ear: No infection. Eyes: No vision loss or color blindness. Nose: No bleeding or purulent discharges. Hearing: Hearing decrease. Neck: No injury. Breast: No history of cancer, masses,or discharges. Cardiac: CHF, HTN, HLD. Pulmonary: No COPD. GI: No GI ulcer, GI bleeding. Urinary/genital: UTI. Endocrinologic: Hypothyroidism. Skeletomuscular: No muscular atrophy, deformity. Neurological: see HP. Psychiatric: Denies drug use/abuse. Otherwise, not [id number] review of systems. PHYSICAL EXAMINATION: General appearance is in subacute distress. HEENT: Normocephalic and nontraumatic. Eyes, nose, ears, and throat are unremarkable. Neck is supple. No lymphadenopathy. No bruits are heard over the carotid artery. No crepitus. Cardiovascular: S1, S2, regular rate and rhythm. Pulmonary: Clear to auscultation bilaterally. Abdomen: Bowel sounds are positive. Abdomen is soft, nontender, and nondistended. Extremities: No rash, lesions, or edema. No restriction of range of motion NEUROLOGICAL EXAMINATION: Drowsiness. Eyes open from time to time. Not oriented to time, place and person. PERRL. EOMI. CN: no focal findings. Muscle tone: increased. Muscle strength: 4 DTR: 1-2 Plantar reflex: Neutral response bilaterally Gait: unable to walk at the present time. Sensory exam: no abnormal findings. Not able to access cerebellar signs. F-T-N test not performed due to not follow commands. Objective Objective Vital Signs Date Time Temp Pulse Resp B/P (MAP) Pulse Ox O2 Delivery O2 Flow Rate FiO2 01/26/19 10:02 100.1 79 24 177/67 (103) 93 Nasal Cannula 2.0 100.1 Intake and Output 01/26/19 06:59 Intake Total 980 ml Balance 980 ml Intake Oral 0 ml IV Total 980 ml # Voids 4 Vitals Signs Vitals VS - Last 72 Hours, by Label Date Time Temp Pulse Resp B/P (MAP) Pulse Ox O2 Delivery O2 Flow Rate FiO2 01/26/19 10:02 100.1 79 24 177/67 (103) 93 Nasal Cannula 2.0 100.1 01/26/19 08:00 Room Air 01/26/19 07:56 100 190/79 01/26/19 07:00 98.3 91 14 190/79 (116) 93 Room Air 98.3 01/26/19 03:30 98.6 68 20 141/97 (112) 96 Room Air 98.6 01/25/19 23:15 99.1 88 20 178/64 (102) 95 Room Air 99.1 01/25/19 21:00 94 182/83 01/25/19 19:45 Room Air 01/25/19 19:35 99.3 94 20 182/83 (116) 94 Room Air 99.3 01/25/19 15:00 97.8 79 12 170/69 (102) 93 Room Air 97.8 01/25/19 11:23 105 175/85 01/25/19 11:00 98.3 105 18 175/85 (115) 95 Room Air 98.3 01/25/19 09:00 98.3 95 172/83 (112) 95 Room Air 98.3 01/25/19 08:00 Room Air Laboratory Laboratory Laboratory Tests Test 01/26/19 05:39 White Blood Count 9.8 x10^3/uL (4.0-11.0) Red Blood Count 4.06 x10^6/uL (3.50-5.40) Hemoglobin 12.3 g/dL (12.0-15.5) Hematocrit 36.1 % (36.0-47.0) Mean Corpuscular Volume 89 fL (79-100) Mean Corpuscular Hemoglobin 30 pg (25-35) Mean Corpuscular Hemoglobin Concent 34 g/dL (31-37) Red Cell Distribution Width 14.2 % (11.5-14.5) Platelet Count 214 x10^3/uL (140-400) Neutrophils (%) (Auto) 81 % (31-73) Lymphocytes (%) (Auto) 12 % (24-48) Monocytes (%) (Auto) 7 % (0-9) Eosinophils (%) (Auto) 0 % (0-3) Basophils (%) (Auto) 0 % (0-3) Neutrophils # (Auto) 7.9 x10^3uL (1.8-7.7) Lymphocytes # (Auto) 1.1 x10^3/uL (1.0-4.8) Monocytes # (Auto) 0.7 x10^3/uL (0.0-1.1) Eosinophils # (Auto) 0.0 x10^3/uL (0.0-0.7) Basophils # (Auto) 0.0 x10^3/uL (0.0-0.2) Sodium Level 146 mmol/L (136-145) Potassium Level 3.2 mmol/L (3.5-5.1) Chloride Level 109 mmol/L (98-107) Carbon Dioxide Level 24 mmol/L (21-32) Anion Gap 13 (6-14) Blood Urea Nitrogen 14 mg/dL (7-20) Creatinine 0.8 mg/dL (0.6-1.0) Estimated GFR (Cockcroft-Gault) 68.5 Glucose Level 103 mg/dL (70-99) Calcium Level 8.1 mg/dL (8.5-10.1) Microbiology 01/24/19 Blood Culture - Preliminary, Resulted NO GROWTH AFTER 1 DAY Medication Medications Current Medications Acetaminophen (Tylenol) 650 mg PRN Q6HRS PRN PO TEMP > 100.4F; Start 01/25/19 at 16:00 Aspirin (Aspirin Rectal Supp) 300 mg DAILY FL Last administered on 01/26/19at 09:11; Start 01/25/19 at 16:30; Stop 01/26/19 at 12:24; Status DC Aspirin (Aspirin Rectal Supp) 300 mg PRN DAILY PRN FL IF UNABLE TO TAKE PO; Start 01/25/19 at 16:00; Stop 01/25/19 at 16:58; Status DC Aspirin (Ant Aspirin) 325 mg DAILYWBKFT PO ; Start 01/27/19 at 08:00 Enoxaparin Sodium (Lovenox 30mg Syringe) 30 mg Q24H SQ ; Start 01/26/19 at 18:00 Famotidine (Pepcid) 20 mg 1X ONCE PO ; Start 01/26/19 at 12:30; Stop 01/26/19 at 12:31; Status DC Famotidine (Pepcid) 20 mg QHS PO ; Start 01/26/19 at 21:00 Metoprolol Tartrate (Lopressor Vial) 5 mg PRN Q5MIN PRN IVP TACHYCARDIA Last administered on 01/26/19at 07:56; Start 01/26/19 at 07:45 Metoprolol Tartrate (Lopressor Vial) 5 mg Q6HRS IVP ; Start 01/26/19 at 12:30; Stop 01/26/19 at 12:30; Status DC Metoprolol Tartrate (Lopressor) 25 mg BID PO ; Start 01/26/19 at 21:00 Potassium Chloride (KCl Oral Soln) 40 meq 1X ONCE PEG ; Start 01/26/19 at 12:30; Stop 01/26/19 at 12:31; Status DC Comment Review of Relevant I have reviewed the following items ivana (where applicable) has been applied. SAM SANCHEZ MD January 26, 2019 13:36
--- NOTE | 2019-01-26 13:47 | NUR ---
SS following up with discharge planning. SS spoke with Nadja from the [facility]. Nadja reported that she met with pt's daughter and pt has LTC insurance that will pay for physicians directed care at there facility. SS confirmed with pt's daughter. Nadja reported that she will come and do a bedside evaluation with pt and requested a referral. SS phoned and faxed referral to the [facility], ; fax [phone]. Nadja reported that if accepted they are ready to accept pt when medically stable.
[2019-01-26 15:00] VITALS: BP 191/72
[2019-01-26] MEDS ORDERED: POTASSIUM CHLORIDE 10MEQ 100 ML IV SCH (15:00)
--- NOTE | 2019-01-26 16:02 | NUR ---
This RN and airway controller attempted to complete NIHSS scale due to new diagnosis of stroke. Scale was completed as much as able and documented. Due to patient history of dementia, patient was not able to follow instructions due to trouble comprehending/understanding. PT attempted to help as well with assisting patient's with movements, but again not able to follow direct commands. RN unable to fully complete scale. school community relations coordinator notified of this situation, and instructed this RN to document scale as able and follow up with this nursing note.
[2019-01-26] MEDS: ENOXAPARIN 30 MG/0.3 ML SYRINGE. SQ SCH (17:06)
[2019-01-26 19:45] VITALS: BP 174/97
[2019-01-26] MEDS: FAMOTIDINE 20 MG TABLET. PO SCH (21:00)
[2019-01-26] MEDS: METOPROLOL TART IMMED RELEASE 25 MG TABLET. PO SCH (21:00)
[2019-01-26] MEDS: SIMVASTATIN 10 MG TABLET PO SCH (21:00)
[2019-01-26 23:25] VITALS: BP 157/84
[2019-01-27] VITALS (8 sets, daily range): BP systolic 176–215; BP diastolic 70–91
[2019-01-27 05:07] LABS: BASO % 0 % (0-3); EOS % 0 % (0-3); HEMATOCRIT 38.3 % (36.0-47.0); HEMOGLOBIN 12.5 g/dL (12.0-15.5); LYMPH # 1.2 x10^3/uL (1.0-4.8); LYMPH % 10 % (24-48); MEAN CORPUSCULAR HEMOGLOBIN 29 pg (25-35); MEAN CORPUSCULAR HGB CONC 33 g/dL (31-37); MEAN CORPUSCULAR VOLUME 90 fL (79-100); MONO # 0.8 x10^3/uL (0.0-1.1); MONO % 6 % (0-9); NEUT # 11.1 x10^3uL (1.8-7.7); NEUT % 84 % (31-73); PLATELET COUNT 263 x10^3/uL (140-400); RED BLOOD COUNT 4.28 x10^6/uL (3.50-5.40); RED CELL DISTRIBUTION WIDTH 14.6 % (11.5-14.5); WHITE BLOOD COUNT 13.1 x10^3/uL (4.0-11.0)
[2019-01-27 05:43] LABS: CALCIUM 8.6 mg/dL (8.5-10.1); POTASSIUM 3.9 mmol/L (3.5-5.1)
[2019-01-27] MEDS: METOPROLOL TARTRATE 5 MG/5 ML VIAL. IVP PRN ×2 (06:18→18:45)
[2019-01-27] MEDS: CHOLECALCIFEROL (VITAMIN D3) 1,000 UNIT TABLET PO SCH (08:18)
[2019-01-27] MEDS: METOPROLOL TART IMMED RELEASE 25 MG TABLET. PO SCH ×2 (08:18→21:01)
[2019-01-27] MEDS: ASCORBIC ACID 500 MG TABLET PO SCH (08:18)
[2019-01-27] MEDS: ASPIRIN 325 MG TABLET PO SCH (08:18)
[2019-01-27] MEDS: MEMANTINE 10 MG TABLET. PO SCH ×2 (08:19→21:00)
[2019-01-27] MEDS: LISINOPRIL 20 MG TABLET PO SCH (08:20)
[2019-01-27] MEDS: SERTRALINE 50 MG TABLET. PO SCH (08:21)
[2019-01-27] MEDS: POLYETHYLENE GLYCOL 3350 17 GM PACKET. PO SCH (08:22)
--- NOTE | 2019-01-27 09:05 | PDOC ---
PROGRESS NOTES Chief Complaint Chief Complaint Acute encephalopathy - likely hypertensive encephalopathy, metabolic. 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 minimal T2 and FLAIR hyperintense signal of the supratentorial parenchyma is nonspecific although probably due to chronic microvascular ischemic disease in a patient this age. mild generalized supratentorial atrophy. Metabolic encephalopathy. Hypertensive emergency, BP 230/130 mmHg. Confusion. Stiffness. Lactic acidosis. HTN urgency - with end organ dysfunction Rhabdomyolysis - with AST elevation, CPK elevation. Elevated troponin - high of 0.925. Possible demand from accelerated HTN Falls Severe osteoporosis Urinary incontinence SVT 01/18/19, spont converted with no intervention Cervical C3-C4 disc bulges Moderate protein calorie malnutrition Alzheimer dementia- advanced per family 46 min pt exam, chart review, > 50% of time spent with exam, chart review, pt care coordination History of Present Illness History of Present Illness Patient seen and examined POOR INTAKE TODAY Resting in NAD, still encephalopathic Discussed with nurse Discussed with MRI reviewed CONSULT PALLIATIVE CARE 48 MIN PT EXAM, CHART REVIEW, > 50% OF TIME SPENT WITH EXAM, CHART REVIEW, PT CARE COORDINATION Vitals Vitals Vital Signs Date Time Temp Pulse Resp B/P (MAP) Pulse Ox O2 Delivery O2 Flow Rate FiO2 01/27/19 08:20 85 189/77 01/27/19 02:53 98.9 18 94 Room Air 98.9 01/26/19 20:00 2.0 Physical Exam Physical Exam General: SOMNOLENT No acute distress Heart: Other (sinus tach; 3/6 erb diastolic murmur) Abdomen: Soft, No tenderness Extremities: No cyanosis, No edema Skin: Other (right elbow wound from fall) General: Cooperative, No acute distress, mild distress Heart: Regular rate, Other (sinus tach; 3/6 erb diastolic murmur) Abdomen: Soft, No tenderness Extremities: No cyanosis, No edema Skin: No significant lesion, Other (right elbow wound from fall) Labs LABS Laboratory Tests Test 01/27/19 04:05 White Blood Count 13.1 x10^3/uL (4.0-11.0) Red Blood Count 4.28 x10^6/uL (3.50-5.40) Hemoglobin 12.5 g/dL (12.0-15.5) Hematocrit 38.3 % (36.0-47.0) Mean Corpuscular Volume 90 fL (79-100) Mean Corpuscular Hemoglobin 29 pg (25-35) Mean Corpuscular Hemoglobin Concent 33 g/dL (31-37) Red Cell Distribution Width 14.6 % (11.5-14.5) Platelet Count 263 x10^3/uL (140-400) Neutrophils (%) (Auto) 84 % (31-73) Lymphocytes (%) (Auto) 10 % (24-48) Monocytes (%) (Auto) 6 % (0-9) Eosinophils (%) (Auto) 0 % (0-3) Basophils (%) (Auto) 0 % (0-3) Neutrophils # (Auto) 11.1 x10^3uL (1.8-7.7) Lymphocytes # (Auto) 1.2 x10^3/uL (1.0-4.8) Monocytes # (Auto) 0.8 x10^3/uL (0.0-1.1) Eosinophils # (Auto) 0.0 x10^3/uL (0.0-0.7) Basophils # (Auto) 0.0 x10^3/uL (0.0-0.2) Sodium Level 148 mmol/L (136-145) Potassium Level 3.9 mmol/L (3.5-5.1) Chloride Level 111 mmol/L (98-107) Carbon Dioxide Level 23 mmol/L (21-32) Anion Gap 14 (6-14) Blood Urea Nitrogen 20 mg/dL (7-20) Creatinine 1.0 mg/dL (0.6-1.0) Estimated GFR (Cockcroft-Gault) 53.0 Glucose Level 178 mg/dL (70-99) Calcium Level 8.6 mg/dL (8.5-10.1) Assessment and Plan Assessmemt and Plan Problems Medical Problems: (1) Altered level of consciousness Status: Acute (2) Dementia Status: Acute (3) Hypertensive urgency Status: Acute Comment Review of Relevant I have reviewed the following items ivana (where applicable) has been applied. Labs Laboratory Tests Test 01/26/19 05:39 01/26/19 07:45 01/27/19 04:05 White Blood Count 9.8 x10^3/uL (4.0-11.0) 13.1 x10^3/uL (4.0-11.0) Red Blood Count 4.06 x10^6/uL (3.50-5.40) 4.28 x10^6/uL (3.50-5.40) Hemoglobin 12.3 g/dL (12.0-15.5) 12.5 g/dL (12.0-15.5) Hematocrit 36.1 % (36.0-47.0) 38.3 % (36.0-47.0) Mean Corpuscular Volume 89 fL (79-100) 90 fL (79-100) Mean Corpuscular Hemoglobin 30 pg (25-35) 29 pg (25-35) Mean Corpuscular Hemoglobin Concent 34 g/dL (31-37) 33 g/dL (31-37) Red Cell Distribution Width 14.2 % (11.5-14.5) 14.6 % (11.5-14.5) Platelet Count 214 x10^3/uL (140-400) 263 x10^3/uL (140-400) Neutrophils (%) (Auto) 81 % (31-73) 84 % (31-73) Lymphocytes (%) (Auto) 12 % (24-48) 10 % (24-48) Monocytes (%) (Auto) 7 % (0-9) 6 % (0-9) Eosinophils (%) (Auto) 0 % (0-3) 0 % (0-3) Basophils (%) (Auto) 0 % (0-3) 0 % (0-3) Neutrophils # (Auto) 7.9 x10^3uL (1.8-7.7) 11.1 x10^3uL (1.8-7.7) Lymphocytes # (Auto) 1.1 x10^3/uL (1.0-4.8) 1.2 x10^3/uL (1.0-4.8) Monocytes # (Auto) 0.7 x10^3/uL (0.0-1.1) 0.8 x10^3/uL (0.0-1.1) Eosinophils # (Auto) 0.0 x10^3/uL (0.0-0.7) 0.0 x10^3/uL (0.0-0.7) Basophils # (Auto) 0.0 x10^3/uL (0.0-0.2) 0.0 x10^3/uL (0.0-0.2) Sodium Level 146 mmol/L (136-145) 148 mmol/L (136-145) Potassium Level 3.2 mmol/L (3.5-5.1) 3.9 mmol/L (3.5-5.1) Chloride Level 109 mmol/L (98-107) 111 mmol/L (98-107) Carbon Dioxide Level 24 mmol/L (21-32) 23 mmol/L (21-32) Anion Gap 13 (6-14) 14 (6-14) Blood Urea Nitrogen 14 mg/dL (7-20) 20 mg/dL (7-20) Creatinine 0.8 mg/dL (0.6-1.0) 1.0 mg/dL (0.6-1.0) Estimated GFR (Cockcroft-Gault) 68.5 53.0 Glucose Level 103 mg/dL (70-99) 178 mg/dL (70-99) Calcium Level 8.1 mg/dL (8.5-10.1) 8.6 mg/dL (8.5-10.1) Creatine Kinase 282 U/L (26-192) Laboratory Tests Test 01/27/19 04:05 White Blood Count 13.1 x10^3/uL (4.0-11.0) Red Blood Count 4.28 x10^6/uL (3.50-5.40) Hemoglobin 12.5 g/dL (12.0-15.5) Hematocrit 38.3 % (36.0-47.0) Mean Corpuscular Volume 90 fL (79-100) Mean Corpuscular Hemoglobin 29 pg (25-35) Mean Corpuscular Hemoglobin Concent 33 g/dL (31-37) Red Cell Distribution Width 14.6 % (11.5-14.5) Platelet Count 263 x10^3/uL (140-400) Neutrophils (%) (Auto) 84 % (31-73) Lymphocytes (%) (Auto) 10 % (24-48) Monocytes (%) (Auto) 6 % (0-9) Eosinophils (%) (Auto) 0 % (0-3) Basophils (%) (Auto) 0 % (0-3) Neutrophils # (Auto) 11.1 x10^3uL (1.8-7.7) Lymphocytes # (Auto) 1.2 x10^3/uL (1.0-4.8) Monocytes # (Auto) 0.8 x10^3/uL (0.0-1.1) Eosinophils # (Auto) 0.0 x10^3/uL (0.0-0.7) Basophils # (Auto) 0.0 x10^3/uL (0.0-0.2) Sodium Level 148 mmol/L (136-145) Potassium Level 3.9 mmol/L (3.5-5.1) Chloride Level 111 mmol/L (98-107) Carbon Dioxide Level 23 mmol/L (21-32) Anion Gap 14 (6-14) Blood Urea Nitrogen 20 mg/dL (7-20) Creatinine 1.0 mg/dL (0.6-1.0) Estimated GFR (Cockcroft-Gault) 53.0 Glucose Level 178 mg/dL (70-99) Calcium Level 8.6 mg/dL (8.5-10.1) Microbiology 01/24/19 Blood Culture - Preliminary, Resulted NO GROWTH AFTER 2 DAYS Medications Current Medications Labetalol HCl (Normodyne Iv Push) 20 mg 1X ONCE IVP Last administered on 01/24/19at 14:10; Start 01/24/19 at 13:30; Stop 01/24/19 at 13:31; Status DC Sodium Chloride 1,000 ml @ 100 mls/hr Q10H IV Last administered on 01/25/19at 12:36; Start 01/24/19 at 13:35; Stop 01/25/19 at 13:34; Status DC Ascorbic Acid (Vitamin C) 500 mg DAILY PO Last administered on 01/27/19at 08:18; Start 01/25/19 at 09:00 Aspirin (Ecotrin) 81 mg DAILYWBKFT PO ; Start 01/24/19 at 16:15; Stop 01/25/19 at 16:04; Status DC Vitamin D (Vitamin D3) 2,000 unit DAILY PO Last administered on 01/27/19at 08:18; Start 01/25/19 at 09:00 Acetaminophen/ Hydrocodone Bitart (Lortab 5/325) 1 tab PRN Q4HRS PRN PO MODERATE PAIN, SEVERE PAIN; Start 01/24/19 at 16:15 Lisinopril (Prinivil) 40 mg DAILY PO Last administered on 01/27/19 08:20; Start 01/25/19 at 09:00 Metoprolol Succinate (Toprol Xl) 12.5 mg DAILY PO ; Start 01/25/19 at 09:00; Stop 01/26/19 at 12:10; Status DC Lidocaine (Lidoderm) 1 patch DAILY TD Last administered on 01/26/19 09:10; Start 01/25/19 at 09:00 Memantine (Namenda) 10 mg BID PO Last administered on 01/27/19 08:19; Start 01/24/19 at 21:00 Sertraline HCl (Zoloft) 100 mg DAILY PO Last administered on 01/27/19 08:21; Start 01/25/19 at 09:00 Enalaprilat (Vasotec Inj) 2.5 mg PRN Q6HRS PRN IVP HYPERTENSION 1ST CHOICE Last administered on 01/25/19 06:13; Start 01/24/19 at 16:15 Ondansetron HCl (Zofran) 4 mg PRN Q6HRS PRN IV NAUSEA/VOMITING; Start 01/24/19 at 16:15 Senna/Docusate Sodium (Senna Plus) 1 tab BID PRN PO CONSTIPATION Last administered on 01/27/19 08:18; Start 01/24/19 at 16:15 Polyethylene Glycol (miraLAX PACKET) 17 gm DAILY PO ; Start 01/24/19 at 16:15 Enoxaparin Sodium (Lovenox 40mg Syringe) 40 mg Q24H SQ Last administered on 01/25/19at 17:32; Start 01/24/19 at 18:00; Stop 01/26/19 at 07:53; Status DC Labetalol HCl (Normodyne Iv Push) 10 mg PRN Q4HRS PRN IVP HYPERTENSION 2ND CHOICE Last administered on 01/25/19 21:00; Start 01/24/19 at 18:45 Simvastatin (Zocor) 10 mg QHS PO Last administered on 01/26/19 21:00; Start 01/24/19 at 21:00 Metoprolol Tartrate (Lopressor Vial) 5 mg 1X ONCE IVP Last administered on 5/14/19at 11:23; Start 01/25/19 at 11:00; Stop 01/25/19 at 11:01; Status DC Aspirin (Aspirin Rectal Supp) 300 mg DAILY [place] Last administered on 01/26/19at 09:11; Start 01/25/19 at 16:30; Stop 01/26/19 at 12:24; Status DC Acetaminophen (Tylenol) 650 mg PRN Q6HRS PRN PO TEMP > 100.4F; Start 01/25/19 at 16:00 Aspirin (Aspirin Rectal Supp) 300 mg PRN DAILY PRN [place] IF UNABLE TO TAKE PO; Start 01/25/19 at 16:00; Stop 01/25/19 at 16:58; Status DC Metoprolol Tartrate (Lopressor Vial) 5 mg PRN Q5MIN PRN IVP TACHYCARDIA Last administered on 01/27/19at 06:18; Start 01/26/19 at 07:45 Enoxaparin Sodium (Lovenox 30mg Syringe) 30 mg Q24H SQ Last administered on 01/26/19at 17:06; Start 01/26/19 at 18:00 Metoprolol Tartrate (Lopressor Vial) 5 mg Q6HRS IVP ; Start 01/26/19 at 12:30; Stop 01/26/19 at 12:30; Status DC Metoprolol Tartrate (Lopressor) 25 mg BID PO Last administered on 01/27/19at 08:18; Start 01/26/19 at 21:00 Aspirin (Ant Aspirin) 325 mg DAILYWBKFT PO Last administered on 01/27/19at 08:18; Start 01/27/19 at 08:00 Famotidine (Pepcid) 20 mg 1X ONCE PO Last administered on 01/26/19at 13:38; Start 01/26/19 at 12:30; Stop 01/26/19 at 12:31; Status DC Famotidine (Pepcid) 20 mg QHS PO Last administered on 01/26/19at 21:00; Start 01/26/19 at 21:00 Potassium Chloride (KCl Oral Soln) 40 meq 1X ONCE PEG Last administered on 01/26/19at 13:37; Start 01/26/19 at 12:30; Stop 01/26/19 at 12:31; Status DC Potassium Chloride/Water 100 ml @ 100 mls/hr Q1H IV ; Start 01/26/19 at 15:00; Stop 01/26/19 at 15:00; Status DC Active Scripts Active Lisinopril 40 Mg Tablet 40 Mg PO DAILY MDD 1 Lidocaine 1 Each Adh..patch 1 Patch TD DAILY MDD 1 Vitamin C (Ascorbic Acid) 500 Mg Tablet 500 Mg PO DAILY MDD 1 Aspirin Ec (Aspirin) 81 Mg Tablet.dr 81 Mg PO DAILYWBKFT MDD 1 Hydrocodone-Apap 5-325 (Hydrocodone Bit/Acetaminophen) 1 Tab Tablet 1 Tab PO PRN Q4HRS PRN MDD 1 Metoprolol Succinate ( Xl ) (Metoprolol Succinate) 25 Mg Tab.er.24h 12.5 Mg PO DAILY MDD 1 Reported Vitamin D3 (Cholecalciferol (Vitamin D3)) 1,000 Unit Tablet 2,000 Unit PO DAILY Sertraline Hcl 100 Mg Tablet 100 Mg PO DAILY Namenda (Memantine Hcl) 10 Mg Tablet 28 Mg PO DAILY Vitals/I & O Vital Sign - Last 24 Hours 01/26/19 01/26/19 01/26/19 01/26/19 10:02 15:00 19:45 20:00 Temp 100.1 98.9 99.1 100.1 98.9 99.1 Pulse 79 97 95 Resp 24 12 18 B/P (MAP) 177/67 (103) 191/72 (111) 174/97 (122) Pulse Ox 93 98 94 O2 Delivery Nasal Cannula Nasal Cannula Room Air Room Air O2 Flow Rate 2.0 2.0 2.0 01/26/19 01/26/19 01/27/19 01/27/19 21:00 23:25 02:53 06:18 Temp 98.5 98.9 98.5 98.9 Pulse 95 83 82 134 Resp 18 18 B/P (MAP) 174/97 157/84 (108) 186/85 (118) 189/91 Pulse Ox 95 94 O2 Delivery Room Air Room Air 01/27/19 01/27/19 08:18 08:20 Pulse 85 85 B/P (MAP) 189/77 189/77 Intake and Output 01/26/19 01/26/19 01/27/19 15:00 23:00 07:00 Intake Total 4 ml 180 ml 0 ml Balance 4 ml 180 ml 0 ml Nutrition Consultation Dietary Evaluation: Recommendations by RD: Increase Calorie Intake, Protein supplementation Comments: REC advance diet as able per [employer] to goal diet cardiac w/oral supplements as able If extended NPO/unable to advance diet, recommend consideration of nutrition support (ppn, dobhoff placement for TFs) Expected Outcomes/Goals: Diet advancement Interpretation of weight loss: >1-2% in 1 week Malnutrition Findings: Food and Nutrition Intake (Sev: <50% est energy req 5days Weight Status: Underweight KENNEY BOX MD January 27, 2019 09:05
[2019-01-27] MEDS: IV NORMAL SALINE 1000ML BAG 1,000 ML IV SCH (11:30)
[2019-01-27] MEDS: ENALAPRILAT 2.5 MG/2 ML VIAL. IVP PRN (11:31)
[2019-01-27] MEDS: LIDOCAINE (700MG/PATCH) PATCH. TD SCH (11:56)
--- NOTE | 2019-01-27 13:35 | PDOC ---
CARDIO Progress Notes Date and Time Date of Service 01/27/2019 Time of Evaluation 1330 Subjective Subjective: Other (sitting up, opens eyes with conversation, but limited verbal response, not in pain, tracking with eyes) Vitals Vitals Vital Signs Date Time Temp Pulse Resp B/P (MAP) Pulse Ox O2 Delivery O2 Flow Rate FiO2 01/27/19 11:57 20 179/76 (110) 2.0 01/27/19 11:31 81 01/27/19 11:00 99.9 93 Nasal Cannula 99.9 Weight Weight [ ] Input and Output Intake and Output Intake and Output 01/27/19 07:00 Intake Total 184 ml Balance 184 ml Intake Oral 184 ml # Voids 5 Laboratory Labs Laboratory Tests Test 01/27/19 04:05 White Blood Count 13.1 x10^3/uL (4.0-11.0) Red Blood Count 4.28 x10^6/uL (3.50-5.40) Hemoglobin 12.5 g/dL (12.0-15.5) Hematocrit 38.3 % (36.0-47.0) Mean Corpuscular Volume 90 fL (79-100) Mean Corpuscular Hemoglobin 29 pg (25-35) Mean Corpuscular Hemoglobin Concent 33 g/dL (31-37) Red Cell Distribution Width 14.6 % (11.5-14.5) Platelet Count 263 x10^3/uL (140-400) Neutrophils (%) (Auto) 84 % (31-73) Lymphocytes (%) (Auto) 10 % (24-48) Monocytes (%) (Auto) 6 % (0-9) Eosinophils (%) (Auto) 0 % (0-3) Basophils (%) (Auto) 0 % (0-3) Neutrophils # (Auto) 11.1 x10^3uL (1.8-7.7) Lymphocytes # (Auto) 1.2 x10^3/uL (1.0-4.8) Monocytes # (Auto) 0.8 x10^3/uL (0.0-1.1) Eosinophils # (Auto) 0.0 x10^3/uL (0.0-0.7) Basophils # (Auto) 0.0 x10^3/uL (0.0-0.2) Sodium Level 148 mmol/L (136-145) Potassium Level 3.9 mmol/L (3.5-5.1) Chloride Level 111 mmol/L (98-107) Carbon Dioxide Level 23 mmol/L (21-32) Anion Gap 14 (6-14) Blood Urea Nitrogen 20 mg/dL (7-20) Creatinine 1.0 mg/dL (0.6-1.0) Estimated GFR (Cockcroft-Gault) 53.0 Glucose Level 178 mg/dL (70-99) Calcium Level 8.6 mg/dL (8.5-10.1) Microbiology Micro Microbiology 01/24/19 Blood Culture - Preliminary, Resulted NO GROWTH AFTER 2 DAYS Physical Exam HEENT: Neck Supple W Full Motion Chest: Symmetric LUNGS: Other (diminished bases) Heart: S1S2, RRR (SR) Abdomen: Soft N/T Extremities: No Edema, No Calf Tenderness Neurology: alert, non-verbal Assessment Assessment 1. Acute CVA with underlying alzheimers dementia. per neurology 2. PSVT: Maintaining SR, better overnight. Tele reviewed, notable for multiple artifacts. 3. HTN: labile 4. Elevated troponin: demand mediated, type 2. peaked at 0.9. No EKG changes. E F and WM nml 5. Alzheimers dementia/debility 6. Hx of ataxia with multiple falls. 7. Mild rhabdomyolysis/dehydration 8. DLP Recommendations 1. ASA. metoprolol. DC vasotec IV as lisinopril PO has been restarted. Labetolol IV PRN. If BP remains labile then may start norvasc. Avoid further increase in routine BB with past notation of bradycardia due to higher dose of BB. 2. Conservative measures only. 3. Will follow along peripherally HERMAN FLORIAN APRN January 27, 2019 13:35
--- NOTE | 2019-01-27 13:53 | PDOC ---
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 Metabolic encephalopathy. Hypertensive encephalopathy. Hypertensive emergency, BP 230/130 mmHg. Confusion. Stiffness. Lactic acidosis. HLD. HTN. Dementia. RECOMMENDATIONS/PLAN: BP control. ASA 325 mg daily, she past swallow test. Zocor 10 mg HS. Maintain optimal hydration per floor team. Consulted Cardiology for elevated troponin. Continue home meds for dementia. Rehab. Discussed with her again at bedside on 01/27/19. EEG on 01/25/19: diffuse encephalopathy. Brain MRI on 01/25/19: See above stroke. Carotid A US + Doppler on 01/25/19: No hemodynamically stenosis. Echo on 01/25/19: Unremarkable. Lipid panel: LDL 129. HISTORY OF THE PRESENT ILLNESS: Ms Fields is an 83-y-old female w/ PMHx Alzheimer dementia who presents to ED per and adult daughter and son with altered level of consciousness. Patient has history of frequent falls and recent hospitalization on January for one day because of frequent falls and and UTI and discharged with home health care. Patient did not talk today to her family, but is usually alert and oriented 1. She has significant debility with severe osteoporosis and having right hip and 2 person max assist. No noted chest pain or SOA. She was complaining of pain last week, but it is migratory in nature, never the same location twice. Baseline chao she is noted with 1 person assist and receives [employer] and and receives consistent 6-8 hours daily care and at night just the . No known arrhythmias or CAD or CVA. Her gait at home was described by her daughter as staggering. She has a walker but continues to fail to use it and despite being given food and prompts does not eat well recently. In ED CT head was negative for acute hemorrhage. BP was noted 230/130. CK 659, trop 0.925, BNP 9464, lactate 2.6, AST 54, glucose 168. Past Medical History Cardiovascular: HTN, Hyperlipidemia Pulmonary: No pertinent hx CENTRAL NERVOUS SYSTEM: Dementia GI: No pertinent hx Heme/Onc: No pertinent hx Hepatobiliary: No pertinent hx Psych: Anxiety Musculoskeletal: Osteoarthritis Rheumatologic: No pertinent hx Infectious disease: No pertinent hx Renal/: Urinary Incontinence Endocrine: No pertinent hx, Osteoporosis Past Surgical History Cholecystectomy, Total hip replacement Family History Unknown ALLERGY: Unknown MEDICATIONS: Refer to [facility] SOCIAL HISTORY: Lives at home. Denies smoking, drinking, and illicit drug use. REVIEW OF SYSTEMS: Constitutional: Under weight. Head: No traumatic brain or head injury. Skin: No edema, or rash. Ear: No infection. Eyes: No vision loss or color blindness. Nose: No bleeding or purulent discharges. Hearing: Hearing decrease. Neck: No injury. Breast: No history of cancer, masses,or discharges. Cardiac: CHF, HTN, HLD. Pulmonary: No COPD. GI: No GI ulcer, GI bleeding. Urinary/genital: UTI. Endocrinologic: Hypothyroidism. Skeletomuscular: No muscular atrophy, deformity. Neurological: see HP. Psychiatric: Denies drug use/abuse. Otherwise, not [id number] review of systems. PHYSICAL EXAMINATION: General appearance is in subacute distress. HEENT: Normocephalic and nontraumatic. Eyes, nose, ears, and throat are unremarkable. Neck is supple. No lymphadenopathy. No bruits are heard over the carotid artery. No crepitus. Cardiovascular: S1, S2, regular rate and rhythm. Pulmonary: Clear to auscultation bilaterally. Abdomen: Bowel sounds are positive. Abdomen is soft, nontender, and nondistended. Extremities: No rash, lesions, or edema. No restriction of range of motion NEUROLOGICAL EXAMINATION: Mildly lethargic. Not oriented to time, place and person. PERRL. EOMI. CN: no focal findings. Muscle tone: increased in all extremities. Muscle strength: 4 DTR: 1-2 Plantar reflex: Neutral response bilaterally Gait: unable to walk at the present time. Sensory exam: withdraw response to stimuli. Not able to access cerebellar signs. F-T-N test not performed due to not follow commands. Objective Objective Vital Signs Date Time Temp Pulse Resp B/P (MAP) Pulse Ox O2 Delivery O2 Flow Rate FiO2 01/27/19 11:57 20 179/76 (110) 2.0 01/27/19 11:31 81 01/27/19 11:00 99.9 93 Nasal Cannula 99.9 Intake and Output 01/27/19 07:00 Intake Total 184 ml Balance 184 ml Intake Oral 184 ml # Voids 5 Vitals Signs Vitals VS - Last 72 Hours, by Label Date Time Temp Pulse Resp B/P (MAP) Pulse Ox O2 Delivery O2 Flow Rate FiO2 01/27/19 11:57 20 179/76 (110) 2.0 01/27/19 11:31 81 200/89 01/27/19 11:00 99.9 81 20 200/89 (126) 93 Nasal Cannula 2.0 99.9 01/27/19 08:20 85 189/77 01/27/19 08:18 85 189/77 01/27/19 08:00 Room Air 01/27/19 07:00 97.3 63 16 189/77 (114) 91 Nasal Cannula 2.0 97.3 01/27/19 06:18 134 189/91 01/27/19 02:53 98.9 82 18 186/85 (118) 94 Room Air 98.9 01/26/19 23:25 98.5 83 18 157/84 (108) 95 Room Air 98.5 01/26/19 21:00 95 174/97 01/26/19 20:00 Room Air 2.0 01/26/19 19:45 99.1 95 18 174/97 (122) 94 Room Air 99.1 01/26/19 15:00 98.9 97 12 191/72 (111) 98 Nasal Cannula 2.0 98.9 01/26/19 10:02 100.1 79 24 177/67 (103) 93 Nasal Cannula 2.0 100.1 01/26/19 08:00 Room Air 01/26/19 07:56 100 190/79 01/26/19 07:00 98.3 91 14 190/79 (116) 93 Room Air 98.3 Laboratory Laboratory Laboratory Tests Test 01/27/19 04:05 White Blood Count 13.1 x10^3/uL (4.0-11.0) Red Blood Count 4.28 x10^6/uL (3.50-5.40) Hemoglobin 12.5 g/dL (12.0-15.5) Hematocrit 38.3 % (36.0-47.0) Mean Corpuscular Volume 90 fL (79-100) Mean Corpuscular Hemoglobin 29 pg (25-35) Mean Corpuscular Hemoglobin Concent 33 g/dL (31-37) Red Cell Distribution Width 14.6 % (11.5-14.5) Platelet Count 263 x10^3/uL (140-400) Neutrophils (%) (Auto) 84 % (31-73) Lymphocytes (%) (Auto) 10 % (24-48) Monocytes (%) (Auto) 6 % (0-9) Eosinophils (%) (Auto) 0 % (0-3) Basophils (%) (Auto) 0 % (0-3) Neutrophils # (Auto) 11.1 x10^3uL (1.8-7.7) Lymphocytes # (Auto) 1.2 x10^3/uL (1.0-4.8) Monocytes # (Auto) 0.8 x10^3/uL (0.0-1.1) Eosinophils # (Auto) 0.0 x10^3/uL (0.0-0.7) Basophils # (Auto) 0.0 x10^3/uL (0.0-0.2) Sodium Level 148 mmol/L (136-145) Potassium Level 3.9 mmol/L (3.5-5.1) Chloride Level 111 mmol/L (98-107) Carbon Dioxide Level 23 mmol/L (21-32) Anion Gap 14 (6-14) Blood Urea Nitrogen 20 mg/dL (7-20) Creatinine 1.0 mg/dL (0.6-1.0) Estimated GFR (Cockcroft-Gault) 53.0 Glucose Level 178 mg/dL (70-99) Calcium Level 8.6 mg/dL (8.5-10.1) Microbiology 01/24/19 Blood Culture - Preliminary, Resulted NO GROWTH AFTER 2 DAYS Medication Medications Current Medications Aspirin (Ant Aspirin) 325 mg DAILYWBKFT PO Last administered on 01/27/19at 08:18; Start 01/27/19 at 08:00 Enoxaparin Sodium (Lovenox 30mg Syringe) 30 mg Q24H SQ Last administered on 01/26/19at 17:06; Start 01/26/19 at 18:00 Famotidine (Pepcid) 20 mg QHS PO Last administered on 01/26/19at 21:00; Start 01/26/19 at 21:00 Metoprolol Tartrate (Lopressor) 25 mg BID PO Last administered on 01/27/19at 08:18; Start 01/26/19 at 21:00 Potassium Chloride/Water 100 ml @ 100 mls/hr Q1H IV ; Start 01/26/19 at 15:00; Stop 01/26/19 at 15:00; Status DC Sodium Chloride 1,000 ml @ 50 mls/hr Q20H IV Last administered on 01/27/19at 11:30; Start 01/27/19 at 11:00 Comment Review of Relevant I have reviewed the following items ivana (where applicable) has been applied. SAM SANCHEZ MD January 27, 2019 13:53
--- NOTE | 2019-01-27 13:56 | NUR ---
SS following up with discharge planning. SS received phone contact from pt's daughter, , reporting that she and her spouse are touring another assisted living, [facility], today and would be deciding between [facility] and the [facility]. Pt's daughter reported that she would contact SS once a decision has been made.
--- NOTE | 2019-01-27 16:32 | PDOC2 ---
PALLIATIVE CARE Palliative Care Note Palliative Care Consult requested by Dr. Boyd to address goals of care. Medical Assessment per medical record. Acute encephalopathy - likely hypertensive encephalopathy, metabolic. 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 minimal T2 and FLAIR hyperintense signal of the supratentorial parenchyma is nonspecific although probably due to chronic microvascular ischemic disease in a patient this age. mild generalized supratentorial atrophy. Metabolic encephalopathy. Hypertensive emergency, BP 230/130 mmHg. Confusion. Stiffness. Lactic acidosis. HTN urgency - with end organ dysfunction Rhabdomyolysis - with AST elevation, CPK elevation. Elevated troponin - high of 0.925. Possible demand from accelerated HTN Falls Severe osteoporosis Urinary incontinence SVT 01/18/19, spont converted with no intervention Cervical C3-C4 disc bulges Moderate protein calorie malnutrition Alzheimer dementia- advanced per family Patient resting --did not awaken. Spoke with -James. Requested I speak with daughter Yris. Spoke with Yris. She is touring facilities for discharge. Addressed Code Status. Yris states she had been "Outside the Hospital DNR/DNI" Informed patient was full code. Yris requested DNR/DNI Understands without this attempt she likely would . Discussed general decline. Will meet tomorrow at 1230 to review plan of care and discuss goals. Deb Velasco called for orders per Angelina WILEY. MILENA HUI January 27, 2019 16:32
[2019-01-27] MEDS: LABETALOL 20 MG/4 ML DISP.SYRIN. IVP PRN (17:00)
[2019-01-27] MEDS: ENOXAPARIN 30 MG/0.3 ML SYRINGE. SQ SCH (17:58)
[2019-01-27] MEDS: SIMVASTATIN 10 MG TABLET PO SCH (21:01)
[2019-01-27] MEDS: FAMOTIDINE 20 MG TABLET. PO SCH (21:01)
[2019-01-28 03:00] VITALS: BP 196/100
[2019-01-28] MEDS: LABETALOL 20 MG/4 ML DISP.SYRIN. IVP PRN (03:46)
[2019-01-28 04:56] LABS: BASO % 0 % (0-3); EOS % 0 % (0-3); HEMATOCRIT 41.2 % (36.0-47.0); HEMOGLOBIN 13.3 g/dL (12.0-15.5); LYMPH # 0.7 x10^3/uL (1.0-4.8); LYMPH % 4 % (24-48); MEAN CORPUSCULAR HEMOGLOBIN 29 pg (25-35); MEAN CORPUSCULAR HGB CONC 32 g/dL (31-37); MEAN CORPUSCULAR VOLUME 90 fL (79-100); MONO # 0.8 x10^3/uL (0.0-1.1); MONO % 5 % (0-9); NEUT # 13.6 x10^3uL (1.8-7.7); NEUT % 90 % (31-73); PLATELET COUNT 271 x10^3/uL (140-400); RED BLOOD COUNT 4.56 x10^6/uL (3.50-5.40); RED CELL DISTRIBUTION WIDTH 14.6 % (11.5-14.5); WHITE BLOOD COUNT 15.1 x10^3/uL (4.0-11.0)
[2019-01-28 05:29] LABS: ALBUMIN 2.4 g/dL (3.4-5.0); ALBUMIN/GLOBULIN RATIO 0.6 (1.0-1.7); CALCIUM 8.5 mg/dL (8.5-10.1); CREATININE 1.1 mg/dL (0.6-1.0); GFR 47.4; POTASSIUM 3.4 mmol/L (3.5-5.1); TOTAL BILIRUBIN 0.7 mg/dL (0.2-1.0); TOTAL PROTEIN 6.3 g/dL (6.4-8.2)
[2019-01-28] MEDS: IV NORMAL SALINE 1000ML BAG 1,000 ML IV SCH (06:23)
[2019-01-28 07:00] VITALS: BP 198/98
[2019-01-28] MEDS: POLYETHYLENE GLYCOL 3350 17 GM PACKET. PO SCH (09:00)
[2019-01-28] MEDS: CHOLECALCIFEROL (VITAMIN D3) 1,000 UNIT TABLET PO SCH (09:03)
[2019-01-28] MEDS: METOPROLOL TART IMMED RELEASE 25 MG TABLET. PO SCH ×2 (09:04→21:00)
[2019-01-28] MEDS: SERTRALINE 50 MG TABLET. PO SCH (09:04)
[2019-01-28] MEDS: LISINOPRIL 20 MG TABLET PO SCH (09:04)
[2019-01-28] MEDS: MEMANTINE 10 MG TABLET. PO SCH ×2 (09:04→21:00)
[2019-01-28] MEDS: ASPIRIN 325 MG TABLET PO SCH (09:05)
[2019-01-28] MEDS: amLODIPine BESYLATE 5 MG TABLET PO SCH (09:05)
[2019-01-28] MEDS: ASCORBIC ACID 500 MG TABLET PO SCH (09:05)
[2019-01-28] MEDS: LIDOCAINE (700MG/PATCH) PATCH. TD SCH (09:06)
[2019-01-28] MEDS: METOPROLOL TARTRATE 5 MG/5 ML VIAL. IVP PRN (09:07)
--- NOTE | 2019-01-28 10:04 | PDOC ---
PROGRESS NOTES Chief Complaint Chief Complaint Acute encephalopathy - likely hypertensive encephalopathy, metabolic. 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 minimal T2 and FLAIR hyperintense signal of the supratentorial parenchyma is nonspecific although probably due to chronic microvascular ischemic disease in a patient this age. mild generalized supratentorial atrophy. Metabolic encephalopathy. Hypertensive emergency, BP 230/130 mmHg. Confusion. Stiffness. Lactic acidosis. HTN urgency - with end organ dysfunction Rhabdomyolysis - with AST elevation, CPK elevation. Elevated troponin - high of 0.925. Possible demand from accelerated HTN Falls Severe osteoporosis Urinary incontinence SVT 01/18/19, spont converted with no intervention Cervical C3-C4 disc bulges Moderate protein calorie malnutrition Alzheimer dementia- advanced per family 46 min pt exam, chart review, > 50% of time spent with exam, chart review, pt care coordination History of Present Illness History of Present Illness Patient seen and examined POOR INTAKE CONTINUES Resting in NAD, still encephalopathic Discussed with nurse and PAT Discussed with MRI reviewed CONSULT PALLIATIVE CARE physician Directed Care at the [facility] with Hospice and Palliative Care 28 MIN PT EXAM, CHART REVIEW, > 50% OF TIME SPENT WITH EXAM, CHART REVIEW, PT CARE COORDINATION, GUARDED PROGNOSIS Vitals Vitals Vital Signs Date Time Temp Pulse Resp B/P (MAP) Pulse Ox O2 Delivery O2 Flow Rate FiO2 01/28/19 09:07 81 198/98 01/28/19 07:00 98.6 18 85 Nasal Cannula 3.0 98.6 Physical Exam Physical Exam General: SOMNOLENT No acute distress Heart: Other (sinus tach; 3/6 erb diastolic murmur) Abdomen: Soft, No tenderness Extremities: No cyanosis, No edema Skin: Other (right elbow wound from fall) General: Alert, Cooperative, No acute distress, mild distress Heart: Regular rate, Other (sinus tach; 3/6 erb diastolic murmur) Lungs: Clear Abdomen: Soft, No tenderness Extremities: No cyanosis, No edema Skin: No significant lesion, Other (right elbow wound from fall) Labs LABS Laboratory Tests Test 01/28/19 03:12 01/28/19 04:00 Glucose (Fingerstick) 175 mg/dL (70-99) White Blood Count 15.1 x10^3/uL (4.0-11.0) Red Blood Count 4.56 x10^6/uL (3.50-5.40) Hemoglobin 13.3 g/dL (12.0-15.5) Hematocrit 41.2 % (36.0-47.0) Mean Corpuscular Volume 90 fL (79-100) Mean Corpuscular Hemoglobin 29 pg (25-35) Mean Corpuscular Hemoglobin Concent 32 g/dL (31-37) Red Cell Distribution Width 14.6 % (11.5-14.5) Platelet Count 271 x10^3/uL (140-400) Neutrophils (%) (Auto) 90 % (31-73) Lymphocytes (%) (Auto) 4 % (24-48) Monocytes (%) (Auto) 5 % (0-9) Eosinophils (%) (Auto) 0 % (0-3) Basophils (%) (Auto) 0 % (0-3) Neutrophils # (Auto) 13.6 x10^3uL (1.8-7.7) Lymphocytes # (Auto) 0.7 x10^3/uL (1.0-4.8) Monocytes # (Auto) 0.8 x10^3/uL (0.0-1.1) Eosinophils # (Auto) 0.0 x10^3/uL (0.0-0.7) Basophils # (Auto) 0.0 x10^3/uL (0.0-0.2) Sodium Level 154 mmol/L (136-145) Potassium Level 3.4 mmol/L (3.5-5.1) Chloride Level 116 mmol/L (98-107) Carbon Dioxide Level 22 mmol/L (21-32) Anion Gap 16 (6-14) Blood Urea Nitrogen 29 mg/dL (7-20) Creatinine 1.1 mg/dL (0.6-1.0) Estimated GFR (Cockcroft-Gault) 47.4 BUN/Creatinine Ratio 26 (6-20) Glucose Level 190 mg/dL (70-99) Calcium Level 8.5 mg/dL (8.5-10.1) Total Bilirubin 0.7 mg/dL (0.2-1.0) Aspartate Amino Transf (AST/SGOT) 30 U/L (15-37) Alanine Aminotransferase (ALT/SGPT) 32 U/L (14-59) Alkaline Phosphatase 131 U/L (46-116) Total Protein 6.3 g/dL (6.4-8.2) Albumin 2.4 g/dL (3.4-5.0) Albumin/Globulin Ratio 0.6 (1.0-1.7) Assessment and Plan Assessmemt and Plan Problems Medical Problems: (1) Altered level of consciousness Status: Acute (2) Dementia Status: Acute (3) Hypertensive urgency Status: Acute Comment Review of Relevant I have reviewed the following items ivana (where applicable) has been applied. Labs Laboratory Tests Test 01/27/19 04:05 01/28/19 03:12 01/28/19 04:00 White Blood Count 13.1 x10^3/uL (4.0-11.0) 15.1 x10^3/uL (4.0-11.0) Red Blood Count 4.28 x10^6/uL (3.50-5.40) 4.56 x10^6/uL (3.50-5.40) Hemoglobin 12.5 g/dL (12.0-15.5) 13.3 g/dL (12.0-15.5) Hematocrit 38.3 % (36.0-47.0) 41.2 % (36.0-47.0) Mean Corpuscular Volume 90 fL (79-100) 90 fL (79-100) Mean Corpuscular Hemoglobin 29 pg (25-35) 29 pg (25-35) Mean Corpuscular Hemoglobin Concent 33 g/dL (31-37) 32 g/dL (31-37) Red Cell Distribution Width 14.6 % (11.5-14.5) 14.6 % (11.5-14.5) Platelet Count 263 x10^3/uL (140-400) 271 x10^3/uL (140-400) Neutrophils (%) (Auto) 84 % (31-73) 90 % (31-73) Lymphocytes (%) (Auto) 10 % (24-48) 4 % (24-48) Monocytes (%) (Auto) 6 % (0-9) 5 % (0-9) Eosinophils (%) (Auto) 0 % (0-3) 0 % (0-3) Basophils (%) (Auto) 0 % (0-3) 0 % (0-3) Neutrophils # (Auto) 11.1 x10^3uL (1.8-7.7) 13.6 x10^3uL (1.8-7.7) Lymphocytes # (Auto) 1.2 x10^3/uL (1.0-4.8) 0.7 x10^3/uL (1.0-4.8) Monocytes # (Auto) 0.8 x10^3/uL (0.0-1.1) 0.8 x10^3/uL (0.0-1.1) Eosinophils # (Auto) 0.0 x10^3/uL (0.0-0.7) 0.0 x10^3/uL (0.0-0.7) Basophils # (Auto) 0.0 x10^3/uL (0.0-0.2) 0.0 x10^3/uL (0.0-0.2) Sodium Level 148 mmol/L (136-145) 154 mmol/L (136-145) Potassium Level 3.9 mmol/L (3.5-5.1) 3.4 mmol/L (3.5-5.1) Chloride Level 111 mmol/L (98-107) 116 mmol/L (98-107) Carbon Dioxide Level 23 mmol/L (21-32) 22 mmol/L (21-32) Anion Gap 14 (6-14) 16 (6-14) Blood Urea Nitrogen 20 mg/dL (7-20) 29 mg/dL (7-20) Creatinine 1.0 mg/dL (0.6-1.0) 1.1 mg/dL (0.6-1.0) Estimated GFR (Cockcroft-Gault) 53.0 47.4 Glucose Level 178 mg/dL (70-99) 190 mg/dL (70-99) Calcium Level 8.6 mg/dL (8.5-10.1) 8.5 mg/dL (8.5-10.1) Glucose (Fingerstick) 175 mg/dL (70-99) BUN/Creatinine Ratio 26 (6-20) Total Bilirubin 0.7 mg/dL (0.2-1.0) Aspartate Amino Transf (AST/SGOT) 30 U/L (15-37) Alanine Aminotransferase (ALT/SGPT) 32 U/L (14-59) Alkaline Phosphatase 131 U/L (46-116) Total Protein 6.3 g/dL (6.4-8.2) Albumin 2.4 g/dL (3.4-5.0) Albumin/Globulin Ratio 0.6 (1.0-1.7) Laboratory Tests Test 01/28/19 03:12 01/28/19 04:00 Glucose (Fingerstick) 175 mg/dL (70-99) White Blood Count 15.1 x10^3/uL (4.0-11.0) Red Blood Count 4.56 x10^6/uL (3.50-5.40) Hemoglobin 13.3 g/dL (12.0-15.5) Hematocrit 41.2 % (36.0-47.0) Mean Corpuscular Volume 90 fL (79-100) Mean Corpuscular Hemoglobin 29 pg (25-35) Mean Corpuscular Hemoglobin Concent 32 g/dL (31-37) Red Cell Distribution Width 14.6 % (11.5-14.5) Platelet Count 271 x10^3/uL (140-400) Neutrophils (%) (Auto) 90 % (31-73) Lymphocytes (%) (Auto) 4 % (24-48) Monocytes (%) (Auto) 5 % (0-9) Eosinophils (%) (Auto) 0 % (0-3) Basophils (%) (Auto) 0 % (0-3) Neutrophils # (Auto) 13.6 x10^3uL (1.8-7.7) Lymphocytes # (Auto) 0.7 x10^3/uL (1.0-4.8) Monocytes # (Auto) 0.8 x10^3/uL (0.0-1.1) Eosinophils # (Auto) 0.0 x10^3/uL (0.0-0.7) Basophils # (Auto) 0.0 x10^3/uL (0.0-0.2) Sodium Level 154 mmol/L (136-145) Potassium Level 3.4 mmol/L (3.5-5.1) Chloride Level 116 mmol/L (98-107) Carbon Dioxide Level 22 mmol/L (21-32) Anion Gap 16 (6-14) Blood Urea Nitrogen 29 mg/dL (7-20) Creatinine 1.1 mg/dL (0.6-1.0) Estimated GFR (Cockcroft-Gault) 47.4 BUN/Creatinine Ratio 26 (6-20) Glucose Level 190 mg/dL (70-99) Calcium Level 8.5 mg/dL (8.5-10.1) Total Bilirubin 0.7 mg/dL (0.2-1.0) Aspartate Amino Transf (AST/SGOT) 30 U/L (15-37) Alanine Aminotransferase (ALT/SGPT) 32 U/L (14-59) Alkaline Phosphatase 131 U/L (46-116) Total Protein 6.3 g/dL (6.4-8.2) Albumin 2.4 g/dL (3.4-5.0) Albumin/Globulin Ratio 0.6 (1.0-1.7) Microbiology 01/24/19 Blood Culture - Preliminary, Resulted NO GROWTH AFTER 3 DAYS Medications Current Medications Labetalol HCl (Normodyne Iv Push) 20 mg 1X ONCE IVP Last administered on 01/24/19at 14:10; Start 01/24/19 at 13:30; Stop 01/24/19 at 13:31; Status DC Sodium Chloride 1,000 ml @ 100 mls/hr Q10H IV Last administered on 01/25/19at 12:36; Start 01/24/19 at 13:35; Stop 01/25/19 at 13:34; Status DC Ascorbic Acid (Vitamin C) 500 mg DAILY PO Last administered on 01/28/19at 09:05; Start 01/25/19 at 09:00 Aspirin (Ecotrin) 81 mg DAILYWBKFT PO ; Start 01/24/19 at 16:15; Stop 01/25/19 at 16:04; Status DC Vitamin D (Vitamin D3) 2,000 unit DAILY PO Last administered on 01/28/19at 09:03; Start 01/25/19 at 09:00 Acetaminophen/ Hydrocodone Bitart (Lortab 5/325) 1 tab PRN Q4HRS PRN PO MODERAT E PAIN, SEVERE PAIN; Start 01/24/19 at 16:15 Lisinopril (Prinivil) 40 mg DAILY PO Last administered on 01/28/19at 09:04; Start 01/25/19 at 09:00 Metoprolol Succinate (Toprol Xl) 12.5 mg DAILY PO ; Start 01/25/19 at 09:00; Stop 01/26/19 at 12:10; Status DC Lidocaine (Lidoderm) 1 patch DAILY TD Last administered on 01/28/19 09:06; Start 01/25/19 at 09:00 Memantine (Namenda) 10 mg BID PO Last administered on 01/28/19 09:04; Start 01/24/19 at 21:00 Sertraline HCl (Zoloft) 100 mg DAILY PO Last administered on 01/28/19 09:04; Start 01/25/19 at 09:00 Enalaprilat (Vasotec Inj) 2.5 mg PRN Q6HRS PRN IVP HYPERTENSION 1ST CHOICE Last administered on 01/27/19 11:31; Start 01/24/19 at 16:15; Stop 01/27/19 at 13:35; Status DC Ondansetron HCl (Zofran) 4 mg PRN Q6HRS PRN IV NAUSEA/VOMITING; Start 01/24/19 at 16:15 Senna/Docusate Sodium (Senna Plus) 1 tab BID PRN PO CONSTIPATION Last admin istered on 01/27/19 08:18; Start 01/24/19 at 16:15 Polyethylene Glycol (miraLAX PACKET) 17 gm DAILY PO ; Start 01/24/19 at 16:15 Enoxaparin Sodium (Lovenox 40mg Syringe) 40 mg Q24H SQ Last administered on 01/25/19 17:32; Start 01/24/19 at 18:00; Stop 01/26/19 at 07:53; Status DC Labetalol HCl (Normodyne Iv Push) 10 mg PRN Q4HRS PRN IVP HYPERTENSION 2ND CHOICE Last administered on 01/28/19at 03:46; Start 01/24/19 at 18:45 Simvastatin (Zocor) 10 mg QHS PO Last administered on 01/27/19 21:01; Start 01/24/19 at 21:00 Metoprolol Tartrate (Lopressor Vial) 5 mg 1X ONCE IVP Last administered on 01/25/19 11:23; Start 01/25/19 at 11:00; Stop 01/25/19 at 11:01; Status DC Aspirin (Aspirin Rectal Supp) 300 mg DAILY NV Last administered on 01/26/19 09:11; Start 01/25/19 at 16:30; Stop 01/26/19 at 12:24; Status DC Acetaminophen (Tylenol) 650 mg PRN Q6HRS PRN PO TEMP > 100.4F; Start 01/25/19 at 16:00 Aspirin (Aspirin Rectal Supp) 300 mg PRN DAILY PRN NV IF UNABLE TO TAKE PO; Start 01/25/19 at 16:00; Stop 01/25/19 at 16:58; Status DC Metoprolol Tartrate (Lopressor Vial) 5 mg PRN Q5MIN PRN IVP TACHYCARDIA Last administered on 01/28/19at 09:07; Start 01/26/19 at 07:45 Enoxaparin Sodium (Lovenox 30mg Syringe) 30 mg Q24H SQ Last administered on 01/27/19at 17:58; Start 01/26/19 at 18:00 Metoprolol Tartrate (Lopressor Vial) 5 mg Q6HRS IVP ; Start 01/26/19 at 12:30; Stop 01/26/19 at 12:30; Status DC Metoprolol Tartrate (Lopressor) 25 mg BID PO Last administered on 01/28/19at 09:04; Start 01/26/19 at 21:00 Aspirin (Ant Aspirin) 325 mg DAILYWBKFT PO Last administered on 01/28/19at 09:05; Start 01/27/19 at 08:00 Famotidine (Pepcid) 20 mg 1X ONCE PO Last administered on 01/26/19at 13:38; Start 01/26/19 at 12:30; Stop 01/26/19 at 12:31; Status DC Famotidine (Pepcid) 20 mg QHS PO Last administered on 01/27/19at 21:01; Start 01/26/19 at 21:00 Potassium Chloride (KCl Oral Soln) 40 meq 1X ONCE PEG Last administered on 01/26/19at 13:37; Start 01/26/19 at 12:30; Stop 01/26/19 at 12:31; Status DC Potassium Chloride/Water 100 ml @ 100 mls/hr Q1H IV ; Start 01/26/19 at 15:00; Stop 01/26/19 at 15:00; Status DC Sodium Chloride 1,000 ml @ 50 mls/hr Q20H IV Last administered on 01/28/19at 06:23; Start 01/27/19 at 11:00 Amlodipine Besylate (Norvasc) 5 mg DAILY PO Last administered on 01/28/19at 09:05; Start 01/28/19 at 09:00 Active Scripts Active Lisinopril 40 Mg Tablet 40 Mg PO DAILY MDD 1 Lidocaine 1 Each Adh..patch 1 Patch TD DAILY MDD 1 Vitamin C (Ascorbic Acid) 500 Mg Tablet 500 Mg PO DAILY MDD 1 Aspirin Ec (Aspirin) 81 Mg Tablet.dr 81 Mg PO DAILYWBKFT MDD 1 Hydrocodone-Apap 5-325 (Hydrocodone Bit/Acetaminophen) 1 Tab Tablet 1 Tab PO PRN Q4HRS PRN MDD 1 Metoprolol Succinate ( Xl ) (Metoprolol Succinate) 25 Mg Tab.er.24h 12.5 Mg PO DAILY MDD 1 Reported Vitamin D3 (Cholecalciferol (Vitamin D3)) 1,000 Unit Tablet 2,000 Unit PO DAILY Sertraline Hcl 100 Mg Tablet 100 Mg PO DAILY Namenda (Memantine Hcl) 10 Mg Tablet 28 Mg PO DAILY Vitals/I & O Vital Sign - Last 24 Hours 01/27/19 01/27/19 01/27/19 01/27/19 11:00 11:31 11:57 15:00 Temp 99.9 98.8 99.9 98.8 Pulse 81 81 79 Resp 20 20 18 B/P (MAP) 200/89 (126) 200/89 179/76 (110) 215/91 (132) Pulse Ox 93 92 O2 Delivery Nasal Cannula Room Air O2 Flow Rate 2.0 2.0 01/27/19 01/27/19 01/27/19 01/27/19 17:00 17:12 18:29 18:45 Pulse 89 64 69 Resp 20 B/P (MAP) 204/108 179/77 (111) 186/79 O2 Delivery Room Air O2 Flow Rate 3.0 01/27/19 01/27/19 01/27/19 01/27/19 19:12 19:50 21:01 23:08 Temp 98.1 99.2 98.1 99.2 Pulse 85 85 88 Resp 20 20 B/P (MAP) 181/70 (107) 181/70 176/88 (117) Pulse Ox 93 91 O2 Delivery Nasal Cannula Room Air Nasal Cannula O2 Flow Rate 2.0 3.0 2.0 01/28/19 01/28/19 01/28/19 01/28/19 03:00 03:46 07:00 09:04 Temp 99.6 98.6 99.6 98.6 Pulse 139 139 81 81 Resp 16 18 B/P (MAP) 196/100 (132) 196/100 198/98 (131) 198/98 Pulse Ox 89 85 O2 Delivery Nasal Cannula Nasal Cannula O2 Flow Rate 3.0 3.0 01/28/19 01/28/19 01/28/19 09:04 09:05 09:07 Pulse 81 81 81 B/P (MAP) 198/98 198/98 198/98 Intake and Output 01/27/19 01/27/19 01/28/19 14:59 22:59 06:59 Intake Total 220 ml Balance 220 ml Nutrition Consultation Dietary Evaluation: Recommendations by RD: Increase Calorie Intake, Protein supplementation Comments: REC continue diet as able per [employer] supplements: ensure pudding, magic cup Expected Outcomes/Goals: Diet advancement -met new goal: to meet > 50% est nurtrition needs via po intake Interpretation of weight loss: >1-2% in 1 week Malnutrition Findings: Food and Nutrition Intake (Sev: <50% est energy req 5days Weight Status: Underweight KENNEY BOX MD January 28, 2019 10:04
[2019-01-28 11:00] VITALS: BP 184/73
--- NOTE | 2019-01-28 13:13 | PDOC2 ---
PALLIATIVE CARE Palliative Care Note Palliative Care Patient more alert today. Sitting up in chair. Non-verbal. Taking few bites/sips. Fed by staff Met with /DPOA James; son Christopher and daughter Yris. Family states they have talked with Dr. Armstrong and have been updated on her medical condition They would like to go to [facility] at the [facility] with [facility] Copy of Living Will and POA placed on record. Spoke with Christine TAYLOR and updated on plan. Outside the Hospital DNR/DNI form signed. Will need physician signature. Family will need to complete documents etc with [facility]. Plan: Discharge to [facility] with Hospice. DNR/DNI form signed by family---need physician signature. MILENA HUI January 28, 2019 13:13
--- NOTE | 2019-01-28 15:13 | PDOC ---
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 Metabolic encephalopathy. Hypertensive encephalopathy. Hypertensive emergency, BP 230/130 mmHg. Confusion. Stiffness. Lactic acidosis. HLD. HTN. Dementia. RECOMMENDATIONS/PLAN: BP control. ASA 325 mg daily, she past swallow test. Zocor 10 mg HS. Maintain optimal hydration per floor team. Consulted Cardiology for elevated troponin. Continue home meds for dementia. Rehab. Discussed with her and son in all detail at bedside on 01/28/19. EEG on 01/25/19: diffuse encephalopathy. Brain MRI on 01/25/19: See above stroke. Carotid A US + Doppler on 01/25/19: No hemodynamically stenosis. Echo on 01/25/19: Unremarkable. Lipid panel: LDL 129. HISTORY OF THE PRESENT ILLNESS: Ms Fields is an 83-y-old female w/ PMHx Alzheimer dementia who presents to ED per and adult daughter and son with altered level of consciousness. Patient has history of frequent falls and recent hospitalization on January for one day because of frequent falls and and UTI and discharged with home health care. Patient did not talk today to her family, but is usually alert and oriented 1. She has significant debility with severe osteoporosis and having right hip and 2 person max assist. No noted chest pain or SOA. She was complaining of pain last week, but it is migratory in nature, never the same location twice. Baseline chao she is noted with 1 person assist and receives home health and and receives consistent 6-8 hours daily care and at night just the . No known arrhythmias or CAD or CVA. Her gait at home was described by her daughter as staggering. She has a walker but continues to fail to use it and despite being given food and prompts does not eat well recently. In ED CT head was negative for acute hemorrhage. BP was noted 230/130. CK 659, trop 0.925, BNP 9464, lactate 2.6, AST 54, glucose 168. Past Medical History Cardiovascular: HTN, Hyperlipidemia Pulmonary: No pertinent hx CENTRAL NERVOUS SYSTEM: Dementia GI: No pertinent hx Heme/Onc: No pertinent hx Hepatobiliary: No pertinent hx Psych: Anxiety Musculoskeletal: Osteoarthritis Rheumatologic: No pertinent hx Infectious disease: No pertinent hx Renal/: Urinary Incontinence Endocrine: No pertinent hx, Osteoporosis Past Surgical History Cholecystectomy, Total hip replacement Family History Unknown ALLERGY: Unknown MEDICATIONS: Refer to [facility] SOCIAL HISTORY: Lives at home. Denies smoking, drinking, and illicit drug use. REVIEW OF SYSTEMS: Constitutional: Under weight. Head: No traumatic brain or head injury. Skin: No edema, or rash. Ear: No infection. Eyes: No vision loss or color blindness. Nose: No bleeding or purulent discharges. Hearing: Hearing decrease. Neck: No injury. Breast: No history of cancer, masses,or discharges. Cardiac: CHF, HTN, HLD. Pulmonary: No COPD. GI: No GI ulcer, GI bleeding. Urinary/genital: UTI. Endocrinologic: Hypothyroidism. Skeletomuscular: No muscular atrophy, deformity. Neurological: see HP. Psychiatric: Denies drug use/abuse. Otherwise, not [id number] review of systems. PHYSICAL EXAMINATION: General appearance is in subacute distress. HEENT: Normocephalic and nontraumatic. Eyes, nose, ears, and throat are unremarkable. Neck is supple. No lymphadenopathy. No bruits are heard over the carotid artery. No crepitus. Cardiovascular: S1, S2, regular rate and rhythm. Pulmonary: Clear to auscultation bilaterally. Abdomen: Bowel sounds are positive. Abdomen is soft, nontender, and nondistended. Extremities: No rash, lesions, or edema. No restriction of range of motion NEUROLOGICAL EXAMINATION: Mildly lethargic. Not oriented to time, place and person. PERRL. EOMI. CN: no focal findings. Muscle tone: increased in all extremities. Muscle strength: 4 DTR: 1-2 Plantar reflex: Neutral response bilaterally Gait: Able to walk a few steps with full assistance in room. Sensory exam: withdraw response to stimuli. Not able to access cerebellar signs. F-T-N test not performed due to not follow commands. Objective Objective Vital Signs Date Time Temp Pulse Resp B/P (MAP) Pulse Ox O2 Delivery O2 Flow Rate FiO2 01/28/19 11:00 100.5 77 20 184/73 (110) 90 Nasal Cannula 2.0 100.5 Intake and Output 01/28/19 07:00 Intake Total 220 ml Balance 220 ml Intake Oral 220 ml # Voids 6 Vitals Signs Vitals VS - Last 72 Hours, by Label Date Time Temp Pulse Resp B/P (MAP) Pulse Ox O2 Delivery O2 Flow Rate FiO2 01/28/19 11:00 100.5 77 20 184/73 (110) 90 Nasal Cannula 2.0 100.5 01/28/19 09:07 81 198/98 01/28/19 09:05 81 198/98 01/28/19 09:04 81 198/98 01/28/19 09:04 81 198/98 01/28/19 08:00 Room Air 2.0 01/28/19 07:00 98.6 81 18 198/98 (131) 85 Nasal Cannula 3.0 98.6 01/28/19 03:46 139 196/100 01/28/19 03:00 99.6 139 16 196/100 (132) 89 Nasal Cannula 3.0 99.6 01/27/19 23:08 99.2 88 20 176/88 (117) 91 Nasal Cannula 2.0 99.2 01/27/19 21:01 85 181/70 01/27/19 19:50 Room Air 3.0 01/27/19 19:12 98.1 85 20 181/70 (107) 93 Nasal Cannula 2.0 98.1 01/27/19 18:45 69 186/79 01/27/19 18:29 Room Air 3.0 01/27/19 17:12 64 20 179/77 (111) 01/27/19 17:00 89 204/108 01/27/19 15:00 98.8 79 18 215/91 (132) 92 Room Air 98.8 01/27/19 11:57 20 179/76 (110) 2.0 01/27/19 11:31 81 200/89 01/27/19 11:00 99.9 81 20 200/89 (126) 93 Nasal Cannula 2.0 99.9 01/27/19 08:20 85 189/77 01/27/19 08:18 85 189/77 01/27/19 08:00 Room Air 01/27/19 07:00 97.3 63 16 189/77 (114) 91 Nasal Cannula 2.0 97.3 Laboratory Laboratory Laboratory Tests Test 01/28/19 03:12 01/28/19 04:00 Glucose (Fingerstick) 175 mg/dL (70-99) White Blood Count 15.1 x10^3/uL (4.0-11.0) Red Blood Count 4.56 x10^6/uL (3.50-5.40) Hemoglobin 13.3 g/dL (12.0-15.5) Hematocrit 41.2 % (36.0-47.0) Mean Corpuscular Volume 90 fL (79-100) Mean Corpuscular Hemoglobin 29 pg (25-35) Mean Corpuscular Hemoglobin Concent 32 g/dL (31-37) Red Cell Distribution Width 14.6 % (11.5-14.5) Platelet Count 271 x10^3/uL (140-400) Neutrophils (%) (Auto) 90 % (31-73) Lymphocytes (%) (Auto) 4 % (24-48) Monocytes (%) (Auto) 5 % (0-9) Eosinophils (%) (Auto) 0 % (0-3) Basophils (%) (Auto) 0 % (0-3) Neutrophils # (Auto) 13.6 x10^3uL (1.8-7.7) Lymphocytes # (Auto) 0.7 x10^3/uL (1.0-4.8) Monocytes # (Auto) 0.8 x10^3/uL (0.0-1.1) Eosinophils # (Auto) 0.0 x10^3/uL (0.0-0.7) Basophils # (Auto) 0.0 x10^3/uL (0.0-0.2) Sodium Level 154 mmol/L (136-145) Potassium Level 3.4 mmol/L (3.5-5.1) Chloride Level 116 mmol/L (98-107) Carbon Dioxide Level 22 mmol/L (21-32) Anion Gap 16 (6-14) Blood Urea Nitrogen 29 mg/dL (7-20) Creatinine 1.1 mg/dL (0.6-1.0) Estimated GFR (Cockcroft-Gault) 47.4 BUN/Creatinine Ratio 26 (6-20) Glucose Level 190 mg/dL (70-99) Calcium Level 8.5 mg/dL (8.5-10.1) Total Bilirubin 0.7 mg/dL (0.2-1.0) Aspartate Amino Transf (AST/SGOT) 30 U/L (15-37) Alanine Aminotransferase (ALT/SGPT) 32 U/L (14-59) Alkaline Phosphatase 131 U/L (46-116) Total Protein 6.3 g/dL (6.4-8.2) Albumin 2.4 g/dL (3.4-5.0) Albumin/Globulin Ratio 0.6 (1.0-1.7) Microbiology 01/24/19 Blood Culture - Preliminary, Resulted NO GROWTH AFTER 3 DAYS Medication Medications Current Medications Amlodipine Besylate (Norvasc) 5 mg DAILY PO Last administered on 01/28/19at 09:05; Start 01/28/19 at 09:00 Comment Review of Relevant I have reviewed the following items ivana (where applicable) has been applied. SAM SANCHEZ MD January 28, 2019 15:13
[2019-01-28 15:14] VITALS: BP 166/104
--- NOTE | 2019-01-28 16:12 | NUR ---
SW following up with pt dc plan. Pt will tentatively dc tomorrow and go to [facility], phone: [phone], fax: [phone] with [facility]osp[facility] care, phone: [phone], fax: [phone]. Weekend contacts will be Nadja with the [facility], phone: [phone] and Cristina with Hospice, phone: [phone]. Nadja will arrange transport. Pt's RN has been notified.
[2019-01-28] MEDS: ENOXAPARIN 30 MG/0.3 ML SYRINGE. SQ SCH (17:21)
[2019-01-28 19:45] VITALS: BP 151/74
[2019-01-28] MEDS: FAMOTIDINE 20 MG TABLET. PO SCH (21:00)
[2019-01-28] MEDS: SIMVASTATIN 10 MG TABLET PO SCH (21:00)
--- NOTE | 2019-01-28 21:00 | NUR ---
Pt scheduled 2100 medications held d/t pt unresponsive/nonverbal, will cont to monitor pt status.pmrn
[2019-01-28 23:31] VITALS: BP 187/94
[2019-01-29] MEDS: LABETALOL 20 MG/4 ML DISP.SYRIN. IVP PRN (00:26)
[2019-01-29 03:29] VITALS: BP 199/118
[2019-01-29] MEDS: METOPROLOL TARTRATE 5 MG/5 ML VIAL. IVP PRN (03:58)
[2019-01-29 04:16] LABS: BASO % 0 % (0-3); EOS % 0 % (0-3); HEMOGLOBIN 13.2 g/dL (12.0-15.5); LYMPH # 0.8 x10^3/uL (1.0-4.8); LYMPH % 7 % (24-48); MEAN CORPUSCULAR HEMOGLOBIN 30 pg (25-35); MEAN CORPUSCULAR HGB CONC 33 g/dL (31-37); MEAN CORPUSCULAR VOLUME 90 fL (79-100); MONO # 0.8 x10^3/uL (0.0-1.1); MONO % 6 % (0-9); NEUT # 11.5 x10^3uL (1.8-7.7); NEUT % 88 % (31-73); PLATELET COUNT 250 x10^3/uL (140-400); RED BLOOD COUNT 4.44 x10^6/uL (3.50-5.40); RED CELL DISTRIBUTION WIDTH 14.7 % (11.5-14.5); WHITE BLOOD COUNT 13.1 x10^3/uL (4.0-11.0)
[2019-01-29] MEDS: IV NORMAL SALINE 1000ML BAG 1,000 ML IV SCH (07:13)
[2019-01-29 07:40] VITALS: BP 169/53
[2019-01-29] MEDS: ASPIRIN 325 MG TABLET PO SCH (08:00)
[2019-01-29] MEDS: ASCORBIC ACID 500 MG TABLET PO SCH (09:00)
[2019-01-29] MEDS: CHOLECALCIFEROL (VITAMIN D3) 1,000 UNIT TABLET PO SCH (09:00)
[2019-01-29] MEDS: SERTRALINE 50 MG TABLET. PO SCH (09:00)
[2019-01-29] MEDS: MEMANTINE 10 MG TABLET. PO SCH (09:00)
[2019-01-29] MEDS: POLYETHYLENE GLYCOL 3350 17 GM PACKET. PO SCH (09:00)
[2019-01-29] MEDS: LIDOCAINE (700MG/PATCH) PATCH. TD SCH (09:00)
[2019-01-29] MEDS: amLODIPine BESYLATE 5 MG TABLET PO SCH (09:00)
[2019-01-29] MEDS: METOPROLOL TART IMMED RELEASE 25 MG TABLET. PO SCH (09:00)
[2019-01-29] MEDS: LISINOPRIL 20 MG TABLET PO SCH (09:00)
--- NOTE | 2019-01-29 10:00 | NUR ---
Hospice transportation here with wheelchair but patient is not able sit in a wheelchair. Transportation will return with a stretcher.
--- NOTE | 2019-01-29 10:03 | PDOC ---
PROGRESS NOTES Chief Complaint Chief Complaint Acute encephalopathy - likely hypertensive encephalopathy, metabolic. 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 minimal T2 and FLAIR hyperintense signal of the supratentorial parenchyma is nonspecific although probably due to chronic microvascular ischemic disease in a patient this age. mild generalized supratentorial atrophy. Metabolic encephalopathy. Hypertensive emergency, BP 230/130 mmHg. Confusion. Stiffness. Lactic acidosis. HTN urgency - with end organ dysfunction Rhabdomyolysis - with AST elevation, CPK elevation. Elevated troponin - high of 0.925. Possible demand from accelerated HTN Falls Severe osteoporosis Urinary incontinence SVT 01/18/19, spont converted with no intervention Cervical C3-C4 disc bulges Moderate protein calorie malnutrition Alzheimer dementia- advanced per family 26 min pt exam, chart review d/c planning, > 50% of time spent with exam, chart review, pt care coordination History of Present Illness History of Present Illness Patient seen and examined POOR INTAKE CONTINUES Resting in NAD, still encephalopathic Discussed with nurse and PAT Discussed with MRI reviewed CONSULT PALLIATIVE CARE physician Directed Care at the [facility] with Hospice and Palliative Care 28 MIN PT EXAM, CHART REVIEW, > 50% OF TIME SPENT WITH EXAM, CHART REVIEW, PT CARE COORDINATION, GUARDED PROGNOSIS Vitals Vitals Vital Signs Date Time Temp Pulse Resp B/P (MAP) Pulse Ox O2 Delivery O2 Flow Rate FiO2 01/29/19 07:40 100.2 75 20 169/53 (91) 97 Room Air 100.2 01/29/19 03:29 2.0 Physical Exam Physical Exam General: SOMNOLENT No acute distress Heart: Other (sinus tach; 3/6 erb diastolic murmur) Abdomen: Soft, No tenderness Extremities: No cyanosis, No edema Skin: Other (right elbow wound from fall) General: Alert, Cooperative, No acute distress, mild distress Heart: Regular rate, Other (sinus tach; 3/6 erb diastolic murmur) Lungs: Clear Abdomen: Soft, No tenderness Extremities: No cyanosis, No edema Skin: No significant lesion, Other (right elbow wound from fall) Labs LABS Laboratory Tests Test 01/29/19 03:30 White Blood Count 13.1 x10^3/uL (4.0-11.0) Red Blood Count 4.44 x10^6/uL (3.50-5.40) Hemoglobin 13.2 g/dL (12.0-15.5) Hematocrit 40.0 % (36.0-47.0) Mean Corpuscular Volume 90 fL (79-100) Mean Corpuscular Hemoglobin 30 pg (25-35) Mean Corpuscular Hemoglobin Concent 33 g/dL (31-37) Red Cell Distribution Width 14.7 % (11.5-14.5) Platelet Count 250 x10^3/uL (140-400) Neutrophils (%) (Auto) 88 % (31-73) Lymphocytes (%) (Auto) 7 % (24-48) Monocytes (%) (Auto) 6 % (0-9) Eosinophils (%) (Auto) 0 % (0-3) Basophils (%) (Auto) 0 % (0-3) Neutrophils # (Auto) 11.5 x10^3uL (1.8-7.7) Lymphocytes # (Auto) 0.8 x10^3/uL (1.0-4.8) Monocytes # (Auto) 0.8 x10^3/uL (0.0-1.1) Eosinophils # (Auto) 0.0 x10^3/uL (0.0-0.7) Basophils # (Auto) 0.0 x10^3/uL (0.0-0.2) Assessment and Plan Assessmemt and Plan Problems Medical Problems: (1) Altered level of consciousness Status: Acute (2) Dementia Status: Acute (3) Hypertensive urgency Status: Acute Comment Review of Relevant I have reviewed the following items ivana (where applicable) has been applied. Labs Laboratory Tests Test 01/28/19 03:12 01/28/19 04:00 01/29/19 03:30 Glucose (Fingerstick) 175 mg/dL (70-99) White Blood Count 15.1 x10^3/uL (4.0-11.0) 13.1 x10^3/uL (4.0-11.0) Red Blood Count 4.56 x10^6/uL (3.50-5.40) 4.44 x10^6/uL (3.50-5.40) Hemoglobin 13.3 g/dL (12.0-15.5) 13.2 g/dL (12.0-15.5) Hematocrit 41.2 % (36.0-47.0) 40.0 % (36.0-47.0) Mean Corpuscular Volume 90 fL (79-100) 90 fL (79-100) Mean Corpuscular Hemoglobin 29 pg (25-35) 30 pg (25-35) Mean Corpuscular Hemoglobin Concent 32 g/dL (31-37) 33 g/dL (31-37) Red Cell Distribution Width 14.6 % (11.5-14.5) 14.7 % (11.5-14.5) Platelet Count 271 x10^3/uL (140-400) 250 x10^3/uL (140-400) Neutrophils (%) (Auto) 90 % (31-73) 88 % (31-73) Lymphocytes (%) (Auto) 4 % (24-48) 7 % (24-48) Monocytes (%) (Auto) 5 % (0-9) 6 % (0-9) Eosinophils (%) (Auto) 0 % (0-3) 0 % (0-3) Basophils (%) (Auto) 0 % (0-3) 0 % (0-3) Neutrophils # (Auto) 13.6 x10^3uL (1.8-7.7) 11.5 x10^3uL (1.8-7.7) Lymphocytes # (Auto) 0.7 x10^3/uL (1.0-4.8) 0.8 x10^3/uL (1.0-4.8) Monocytes # (Auto) 0.8 x10^3/uL (0.0-1.1) 0.8 x10^3/uL (0.0-1.1) Eosinophils # (Auto) 0.0 x10^3/uL (0.0-0.7) 0.0 x10^3/uL (0.0-0.7) Basophils # (Auto) 0.0 x10^3/uL (0.0-0.2) 0.0 x10^3/uL (0.0-0.2) Sodium Level 154 mmol/L (136-145) Potassium Level 3.4 mmol/L (3.5-5.1) Chloride Level 116 mmol/L (98-107) Carbon Dioxide Level 22 mmol/L (21-32) Anion Gap 16 (6-14) Blood Urea Nitrogen 29 mg/dL (7-20) Creatinine 1.1 mg/dL (0.6-1.0) Estimated GFR (Cockcroft-Gault) 47.4 BUN/Creatinine Ratio 26 (6-20) Glucose Level 190 mg/dL (70-99) Calcium Level 8.5 mg/dL (8.5-10.1) Total Bilirubin 0.7 mg/dL (0.2-1.0) Aspartate Amino Transf (AST/SGOT) 30 U/L (15-37) Alanine Aminotransferase (ALT/SGPT) 32 U/L (14-59) Alkaline Phosphatase 131 U/L (46-116) Total Protein 6.3 g/dL (6.4-8.2) Albumin 2.4 g/dL (3.4-5.0) Albumin/Globulin Ratio 0.6 (1.0-1.7) Laboratory Tests Test 01/29/19 03:30 White Blood Count 13.1 x10^3/uL (4.0-11.0) Red Blood Count 4.44 x10^6/uL (3.50-5.40) Hemoglobin 13.2 g/dL (12.0-15.5) Hematocrit 40.0 % (36.0-47.0) Mean Corpuscular Volume 90 fL (79-100) Mean Corpuscular Hemoglobin 30 pg (25-35) Mean Corpuscular Hemoglobin Concent 33 g/dL (31-37) Red Cell Distribution Width 14.7 % (11.5-14.5) Platelet Count 250 x10^3/uL (140-400) Neutrophils (%) (Auto) 88 % (31-73) Lymphocytes (%) (Auto) 7 % (24-48) Monocytes (%) (Auto) 6 % (0-9) Eosinophils (%) (Auto) 0 % (0-3) Basophils (%) (Auto) 0 % (0-3) Neutrophils # (Auto) 11.5 x10^3uL (1.8-7.7) Lymphocytes # (Auto) 0.8 x10^3/uL (1.0-4.8) Monocytes # (Auto) 0.8 x10^3/uL (0.0-1.1) Eosinophils # (Auto) 0.0 x10^3/uL (0.0-0.7) Basophils # (Auto) 0.0 x10^3/uL (0.0-0.2) Microbiology 01/24/19 Blood Culture - Preliminary, Resulted NO GROWTH AFTER 4 DAYS Medications Current Medications Labetalol HCl (Normodyne Iv Push) 20 mg 1X ONCE IVP Last administered on 01/24/19at 14:10; Start 01/24/19 at 13:30; Stop 01/24/19 at 13:31; Status DC Sodium Chloride 1,000 ml @ 100 mls/hr Q10H IV Last administered on 01/25/19at 12:36; Start 01/24/19 at 13:35; Stop 01/25/19 at 13:34; Status DC Ascorbic Acid (Vitamin C) 500 mg DAILY PO Last administered on 01/28/19at 09:05; Start 01/25/19 at 09:00 Aspirin (Ecotrin) 81 mg DAILYWBKFT PO ; Start 01/24/19 at 16:15; Stop 01/25/19 at 16:04; Status DC Vitamin D (Vitamin D3) 2,000 unit DAILY PO Last administered on 01/28/19at 09:03; Start 01/25/19 at 09:00 Acetaminophen/ Hydrocodone Bitart (Lortab 5/325) 1 tab PRN Q4HRS PRN PO MODERATE PAIN, SEVERE PAIN; Start 01/24/19 at 16:15 Lisinopril (Prinivil) 40 mg DAILY PO Last administered on 01/28/19at 09:04; Start 01/25/19 at 09:00 Metoprolol Succinate (Toprol Xl) 12.5 mg DAILY PO ; Start 01/25/19 at 09:00; Stop 01/26/19 at 12:10; Status DC Lidocaine (Lidoderm) 1 patch DAILY TD Last administered on 01/28/19at 09:06; Start 01/25/19 at 09:00 Memantine (Namenda) 10 mg BID PO Last administered on 01/28/19at 09:04; Start 01/24/19 at 21:00 Sertraline HCl (Zoloft) 100 mg DAILY PO Last administered on 01/28/19at 09:04; Start 01/25/19 at 09:00 Enalaprilat (Vasotec Inj) 2.5 mg PRN Q6HRS PRN IVP HYPERTENSION 1ST CHOICE Last administered on 01/27/19 11:31; Start 01/24/19 at 16:15; Stop 01/27/19 at 13:35; Status DC Ondansetron HCl (Zofran) 4 mg PRN Q6HRS PRN IV NAUSEA/VOMITING; Start 01/24/19 at 16:15 Senna/Docusate Sodium (Senna Plus) 1 tab BID PRN PO CONSTIPATION Last administered on 01/27/19at 08:18; Start 01/24/19 at 16:15 Polyethylene Glycol (miraLAX PACKET) 17 gm DAILY PO ; Start 01/24/19 at 16:15 Enoxaparin Sodium (Lovenox 40mg Syringe) 40 mg Q24H SQ Last administered on 01/25/19 17:32; Start 01/24/19 at 18:00; Stop 01/26/19 at 07:53; Status DC Labetalol HCl (Normodyne Iv Push) 10 mg PRN Q4HRS PRN IVP HYPERTENSION 2ND CHOICE Last administered on 01/29/19at 00:26; Start 01/24/19 at 18:45 Simvastatin (Zocor) 10 mg QHS PO Last administered on 01/27/19 21:01; Start 01/24/19 at 21:00 Metoprolol Tartrate (Lopressor Vial) 5 mg 1X ONCE IVP Last administered on 01/25/19 11:23; Start 01/25/19 at 11:00; Stop 01/25/19 at 11:01; Status DC Aspirin (Aspirin Rectal Supp) 300 mg DAILY AR Last administered on 01/26/19at 09:11; Start 01/25/19 at 16:30; Stop 01/26/19 at 12:24; Status DC Acetaminophen (Tylenol) 650 mg PRN Q6HRS PRN PO TEMP > 100.4F; Start 01/25/19 at 16:00 Aspirin (Aspirin Rectal Supp) 300 mg PRN DAILY PRN AR IF UNABLE TO TAKE PO; Start 01/25/19 at 16:00; Stop 01/25/19 at 16:58; Status DC Metoprolol Tartrate (Lopressor Vial) 5 mg PRN Q5MIN PRN IVP TACHYCARDIA Last administered on 01/29/19at 03:58; Start 01/26/19 at 07:45 Enoxaparin Sodium (Lovenox 30mg Syringe) 30 mg Q24H SQ Last administered on 01/12 04/01at 17:21; Start 01/26/19 at 18:00 Metoprolol Tartrate (Lopressor Vial) 5 mg Q6HRS IVP ; Start 01/26/19 at 12:30; Stop 01/26/19 at 12:30; Status DC Metoprolol Tartrate (Lopressor) 25 mg BID PO Last administered on 01/28/19at 09:04; Start 01/26/19 at 21:00 Aspirin (Ant Aspirin) 325 mg DAILYWBKFT PO Last administered on 01/28/19at 09:05; Start 01/27/19 at 08:00 Famotidine (Pepcid) 20 mg 1X ONCE PO Last administered on 01/26/19at 13:38; Start 01/26/19 at 12:30; Stop 01/26/19 at 12:31; Status DC Famotidine (Pepcid) 20 mg QHS PO Last administered on 01/27/19at 21:01; Start 01/26/19 at 21:00 Potassium Chloride (KCl Oral Soln) 40 meq 1X ONCE PEG Last administered on 01/26/19at 13:37; Start 01/26/19 at 12:30; Stop 01/26/19 at 12:31; Status DC Potassium Chloride/Water 100 ml @ 100 mls/hr Q1H IV ; Start 01/26/19 at 15:00; Stop 01/26/19 at 15:00; Status DC Sodium Chloride 1,000 ml @ 50 mls/hr Q20H IV Last administered on 01/29/19at 07:13; Start 01/27/19 at 11:00 Amlodipine Besylate (Norvasc) 5 mg DAILY PO Last administered on 01/28/19at 09:05; Start 01/28/19 at 09:00 Active Scripts Active Lisinopril 40 Mg Tablet 40 Mg PO DAILY MDD 1 Lidocaine 1 Each Adh..patch 1 Patch TD DAILY MDD 1 Vitamin C (Ascorbic Acid) 500 Mg Tablet 500 Mg PO DAILY MDD 1 Aspirin Ec (Aspirin) 81 Mg Tablet.dr 81 Mg PO DAILYWBKFT MDD 1 Hydrocodone-Apap 5-325 (Hydrocodone Bit/Acetaminophen) 1 Tab Tablet 1 Tab PO PRN Q4HRS PRN MDD 1 Metoprolol Succinate ( Xl ) (Metoprolol Succinate) 25 Mg Tab.er.24h 12.5 Mg PO DAILY MDD 1 Reported Vitamin D3 (Cholecalciferol (Vitamin D3)) 1,000 Unit Tablet 2,000 Unit PO DAILY Sertraline Hcl 100 Mg Tablet 100 Mg PO DAILY Namenda (Memantine Hcl) 10 Mg Tablet 28 Mg PO DAILY Vitals/I & O Vital Sign - Last 24 Hours 01/28/19 01/28/19 01/28/19 01/28/19 11:00 15:14 19:25 19:45 Temp 100.5 99.3 98.1 100.5 99.3 98.1 Pulse 77 77 93 Resp 20 20 18 B/P (MAP) 184/73 (110) 166/104 (124) 151/74 (99) Pulse Ox 90 93 95 O2 Delivery Nasal Cannula Nasal Cannula Nasal Cannula Nasal Cannula O2 Flow Rate 2.0 2.0 2.0 2.0 01/28/19 01/28/19 01/29/19 01/29/19 21:00 23:31 00:26 03:29 Temp 98.6 98.2 98.6 98.2 Pulse 112 112 112 69 Resp 22 20 B/P (MAP) 187/94 187/94 (125) 187/94 199/118 (145) Pulse Ox 92 94 O2 Delivery Nasal Cannula Nasal Cannula O2 Flow Rate 2.0 2.0 01/29/19 01/29/19 03:58 07:40 Temp 100.2 100.2 Pulse 92 75 Resp 20 B/P (MAP) 199/110 169/53 (91) Pulse Ox 97 O2 Delivery Room Air Intake and Output 01/28/19 01/28/19 01/29/19 14:59 22:59 06:59 Intake Total 120 ml 0 ml Balance 120 ml 0 ml Nutrition Consultation Dietary Evaluation: Recommendations by RD: Increase Calorie Intake, Protein supplementation Comments: REC continue diet as able per ADMISSIONS SPECIALIST supplements: ensure pudding, magic cup Expected Outcomes/Goals: Diet advancement -met new goal: to meet > 50% est nurtrition needs via po intake Interpretation of weight loss: >1-2% in 1 week Malnutrition Findings: Food and Nutrition Intake (Sev: <50% est energy req 5days Weight Status: Underweight KENNEY BOX MD January 29, 2019 10:03
--- NOTE | 2019-01-29 11:43 | NUR ---
Transportation here with a stretcher and patient discharged to the [facility].
--- NOTE | 2019-01-29 13:33 | PDOC3 ---
Discharge Summary Date of Admission: January 24, 2019 Date of Discharge: January 29, 2019 Follow-Up: 1-2 days Admitting Diagnosis comment: discharge dx Acute encephalopathy - likely hypertensive encephalopathy, metabolic. 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 minimal T2 and FLAIR hyperintense signal of the supratentorial parenchyma is nonspecific although probably due to chronic microvascular ischemic disease in a patient this age. mild generalized supratentorial atrophy. Metabolic encephalopathy. Hypertensive emergency, BP 230/130 mmHg. Confusion. Stiffness. Lactic acidosis. HTN urgency - with end organ dysfunction Rhabdomyolysis - with AST elevation, CPK elevation. Elevated troponin - high of 0.925. Possible demand from accelerated HTN Falls Severe osteoporosis Urinary incontinence SVT 01/18/19, spont converted with no intervention Cervical C3-C4 disc bulges Moderate protein calorie malnutrition Alzheimer dementia- advanced per family 26 min pt exam, chart review d/c planning, > 50% of time spent with exam, chart review, pt care coordination History of Present Illness History of Present Illness Patient seen and examined POOR INTAKE CONTINUES Resting in NAD, still encephalopathic Discussed with nurse and PAT Discussed with MRI reviewed CONSULT PALLIATIVE CARE physician Directed Care at the [facility] with Hospice and Palliative Care d/c today 28 MIN PT EXAM, CHART REVIEW, > 50% OF TIME SPENT WITH EXAM, CHART REVIEW, PT CARE COORDINATION, GUARDED PROGNOSIS Vitals Vitals Vital Signs Date Time Temp Pulse Resp B/P (MAP) Pulse Ox O2 Delivery O2 Flow Rate FiO2 01/29/19 07:40 100.2 75 20 169/53 (91) 97 Room Air 100.2 01/29/19 03:29 2.0 Physical Exam Physical Exam General: SOMNOLENT No acute distress Heart: Other (sinus tach; 3/6 erb diastolic murmur) Abdomen: Soft, No tenderness Extremities: No cyanosis, No edema Skin: Other (right elbow wound from fall) General: Alert, Cooperative, No acute distress, mild distress Heart: Regular rate, Other (sinus tach; 3/6 erb diastolic murmur) Lungs: Clear Abdomen: Soft, No tenderness Extremities: No cyanosis, No edema Skin: No significant lesion, Other (right elbow wound from fall) FINAL DIAGNOSIS Problems Medical Problems: (1) Altered level of consciousness Status: Acute (2) Dementia Status: Acute (3) Hypertensive urgency Status: Acute Brief Hospital Course Ms. Fielsd is a 83 old [sex] who presented with [acute cva ] CONDITION AT DISCHARGE: Comment (poor prognosis) Discharge Medications Current Medications Labetalol HCl (Normodyne Iv Push) 20 mg 1X ONCE IVP Last administered on 01/24/19at 14:10; Start 01/24/19 at 13:30; Stop 01/24/19 at 13:31; Status DC Sodium Chloride 1,000 ml @ 100 mls/hr Q10H IV Last administered on 01/25/19at 12:36; Start 01/24/19 at 13:35; Stop 01/25/19 at 13:34; Status DC Ascorbic Acid (Vitamin C) 500 mg DAILY PO Last administered on 01/28/19at 09:05; Start 01/25/19 at 09:00 Aspirin (Ecotrin) 81 mg DAILYWBKFT PO ; Start 01/24/19 at 16:15; Stop 01/25/19 at 16:04; Status DC Vitamin D (Vitamin D3) 2,000 unit DAILY PO Last administered on 01/28/19at 09:03; Start 01/25/19 at 09:00 Acetaminophen/ Hydrocodone Bitart (Lortab 5/325) 1 tab PRN Q4HRS PRN PO MODERATE PAIN, SEVERE PAIN; Start 01/24/19 at 16:15 Lisinopril (Prinivil) 40 mg DAILY PO Last administered on 01/28/19at 09:04; Start 01/25/19 at 09:00 Metoprolol Succinate (Toprol Xl) 12.5 mg DAILY PO ; Start 01/25/19 at 09:00; Stop 01/26/19 at 12:10; Status DC Lidocaine (Lidoderm) 1 patch DAILY TD Last administered on 01/28/19at 09:06; Start 01/25/19 at 09:00 Memantine (Namenda) 10 mg BID PO Last administered on 01/28/19at 09:04; Start 01/24/19 at 21:00 Sertraline HCl (Zoloft) 100 mg DAILY PO Last administered on 01/28/19at 09:04; Start 01/25/19 at 09:00 Enalaprilat (Vasotec Inj) 2.5 mg PRN Q6HRS PRN IVP HYPERTENSION 1ST CHOICE Last administered on 01/27/19 11:31; Start 01/24/19 at 16:15; Stop 01/27/19 at 13:35; Status DC Ondansetron HCl (Zofran) 4 mg PRN Q6HRS PRN IV NAUSEA/VOMITING; Start 01/24/19 at 16:15 Senna/Docusate Sodium (Senna Plus) 1 tab BID PRN PO CONSTIPATION Last administered on 01/27/19 08:18; Start 01/24/19 at 16:15 Polyethylene Glycol (miraLAX PACKET) 17 gm DAILY PO ; Start 01/24/19 at 16:15 Enoxaparin Sodium (Lovenox 40mg Syringe) 40 mg Q24H SQ Last administered on 01/25/19at 17:32; Start 01/24/19 at 18:00; Stop 01/26/19 at 07:53; Status DC Labetalol HCl (Normodyne Iv Push) 10 mg PRN Q4HRS PRN IVP HYPERTENSION 2ND CHOICE Last administered on 01/29/19at 00:26; Start 01/24/19 at 18:45 Simvastatin (Zocor) 10 mg QHS PO Last administered on 01/27/19 21:01; Start 01/24/19 at 21:00 Metoprolol Tartrate (Lopressor Vial) 5 mg 1X ONCE IVP Last administered on 01/25/19 11:23; Start 01/25/19 at 11:00; Stop 01/25/19 at 11:01; Status DC Aspirin (Aspirin Rectal Supp) 300 mg DAILY OK Last administered on 01/26/19at 09:11; Start 01/25/19 at 16:30; Stop 01/26/19 at 12:24; Status DC Acetaminophen (Tylenol) 650 mg PRN Q6HRS PRN PO TEMP > 100.4F; Start 01/25/19 at 16:00 Aspirin (Aspirin Rectal Supp) 300 mg PRN DAILY PRN OK IF UNABLE TO TAKE PO; Start 01/25/19 at 16:00; Stop 01/25/19 at 16:58; Status DC Metoprolol Tartrate (Lopressor Vial) 5 mg PRN Q5MIN PRN IVP TACHYCARDIA Last administered on 01/29/19at 03:58; Start 01/26/19 at 07:45 Enoxaparin Sodium (Lovenox 30mg Syringe) 30 mg Q24H SQ Last administered on 01/28/19at 17:21; Start 01/26/19 at 18:00 Metoprolol Tartrate (Lopressor Vial) 5 mg Q6HRS IVP ; Start 01/26/19 at 12:30; Stop 01/26/19 at 12:30; Status DC Metoprolol Tartrate (Lopressor) 25 mg BID PO Last administered on 01/28/19at 09:04; Start 01/26/19 at 21:00 Aspirin (Ant Aspirin) 325 mg DAILYWBKFT PO Last administered on 01/28/19at 09:05; Start 01/27/19 at 08:00 Famotidine (Pepcid) 20 mg 1X ONCE PO Last administered on 01/26/19at 13:38; Start 01/26/19 at 12:30; Stop 01/26/19 at 12:31; Status DC Famotidine (Pepcid) 20 mg QHS PO Last administered on 01/27/19at 21:01; Start 01/26/19 at 21:00 Potassium Chloride (KCl Oral Soln) 40 meq 1X ONCE PEG Last administered on 01/26/19at 13:37; Start 01/26/19 at 12:30; Stop 01/26/19 at 12:31; Status DC Potassium Chloride/Water 100 ml @ 100 mls/hr Q1H IV ; Start 01/26/19 at 15:00; Stop 01/26/19 at 15:00; Status DC Sodium Chloride 1,000 ml @ 50 mls/hr Q20H IV Last administered on 01/29/19at 07:13; Start 01/27/19 at 11:00 Amlodipine Besylate (Norvasc) 5 mg DAILY PO Last administered on 01/28/19at 09:05; Start 01/28/19 at 09:00 Active Scripts Active Lisinopril 40 Mg Tablet 40 Mg PO DAILY MDD 1 Lidocaine 1 Each Adh..patch 1 Patch TD DAILY MDD 1 Vitamin C (Ascorbic Acid) 500 Mg Tablet 500 Mg PO DAILY MDD 1 Aspirin Ec (Aspirin) 81 Mg Tablet. 81 Mg PO DAILYWBKFT MDD 1 Hydrocodone-Apap 5-325 (Hydrocodone Bit/Acetaminophen) 1 Tab Tablet 1 Tab PO PRN Q4HRS PRN MDD 1 Metoprolol Succinate ( Xl ) (Metoprolol Succinate) 25 Mg Tab.er.24h 12.5 Mg PO DAILY MDD 1 Reported Vitamin D3 (Cholecalciferol (Vitamin D3)) 1,000 Unit Tablet 2,000 Unit PO DAILY Sertraline Hcl 100 Mg Tablet 100 Mg PO DAILY Namenda (Memantine Hcl) 10 Mg Tablet 28 Mg PO DAILY Vital Signs Vital Signs Date Time Temp Pulse Resp B/P (MAP) Pulse Ox O2 Delivery O2 Flow Rate FiO2 01/29/19 11:42 Nasal Cannula 4.0 01/29/19 07:40 100.2 75 20 169/53 (91) 97 100.2 Labs Laboratory Tests Test 01/28/19 03:12 01/28/19 04:00 01/29/19 03:30 Glucose (Fingerstick) 175 mg/dL (70-99) White Blood Count 15.1 x10^3/uL (4.0-11.0) 13.1 x10^3/uL (4.0-11.0) Red Blood Count 4.56 x10^6/uL (3.50-5.40) 4.44 x10^6/uL (3.50-5.40) Hemoglobin 13.3 g/dL (12.0-15.5) 13.2 g/dL (12.0-15.5) Hematocrit 41.2 % (36.0-47.0) 40.0 % (36.0-47.0) Mean Corpuscular Volume 90 fL (79-100) 90 fL (79-100) Mean Corpuscular Hemoglobin 29 pg (25-35) 30 pg (25-35) Mean Corpuscular Hemoglobin Concent 32 g/dL (31-37) 33 g/dL (31-37) Red Cell Distribution Width 14.6 % (11.5-14.5) 14.7 % (11.5-14.5) Platelet Count 271 x10^3/uL (140-400) 250 x10^3/uL (140-400) Neutrophils (%) (Auto) 90 % (31-73) 88 % (31-73) Lymphocytes (%) (Auto) 4 % (24-48) 7 % (24-48) Monocytes (%) (Auto) 5 % (0-9) 6 % (0-9) Eosinophils (%) (Auto) 0 % (0-3) 0 % (0-3) Basophils (%) (Auto) 0 % (0-3) 0 % (0-3) Neutrophils # (Auto) 13.6 x10^3uL (1.8-7.7) 11.5 x10^3uL (1.8-7.7) Lymphocytes # (Auto) 0.7 x10^3/uL (1.0-4.8) 0.8 x10^3/uL (1.0-4.8) Monocytes # (Auto) 0.8 x10^3/uL (0.0-1.1) 0.8 x10^3/uL (0.0-1.1) Eosinophils # (Auto) 0.0 x10^3/uL (0.0-0.7) 0.0 x10^3/uL (0.0-0.7) Basophils # (Auto) 0.0 x10^3/uL (0.0-0.2) 0.0 x10^3/uL (0.0-0.2) Sodium Level 154 mmol/L (136-145) Potassium Level 3.4 mmol/L (3.5-5.1) Chloride Level 116 mmol/L (98-107) Carbon Dioxide Level 22 mmol/L (21-32) Anion Gap 16 (6-14) Blood Urea Nitrogen 29 mg/dL (7-20) Creatinine 1.1 mg/dL (0.6-1.0) Estimated GFR (Cockcroft-Gault) 47.4 BUN/Creatinine Ratio 26 (6-20) Glucose Level 190 mg/dL (70-99) Calcium Level 8.5 mg/dL (8.5-10.1) Total Bilirubin 0.7 mg/dL (0.2-1.0) Aspartate Amino Transf (AST/SGOT) 30 U/L (15-37) Alanine Aminotransferase (ALT/SGPT) 32 U/L (14-59) Alkaline Phosphatase 131 U/L (46-116) Total Protein 6.3 g/dL (6.4-8.2) Albumin 2.4 g/dL (3.4-5.0) Albumin/Globulin Ratio 0.6 (1.0-1.7) Laboratory Tests Test 01/29/19 03:30 White Blood Count 13.1 x10^3/uL (4.0-11.0) Red Blood Count 4.44 x10^6/uL (3.50-5.40) Hemoglobin 13.2 g/dL (12.0-15.5) Hematocrit 40.0 % (36.0-47.0) Mean Corpuscular Volume 90 fL (79-100) Mean Corpuscular Hemoglobin 30 pg (25-35) Mean Corpuscular Hemoglobin Concent 33 g/dL (31-37) Red Cell Distribution Width 14.7 % (11.5-14.5) Platelet Count 250 x10^3/uL (140-400) Neutrophils (%) (Auto) 88 % (31-73) Lymphocytes (%) (Auto) 7 % (24-48) Monocytes (%) (Auto) 6 % (0-9) Eosinophils (%) (Auto) 0 % (0-3) Basophils (%) (Auto) 0 % (0-3) Neutrophils # (Auto) 11.5 x10^3uL (1.8-7.7) Lymphocytes # (Auto) 0.8 x10^3/uL (1.0-4.8) Monocytes # (Auto) 0.8 x10^3/uL (0.0-1.1) Eosinophils # (Auto) 0.0 x10^3/uL (0.0-0.7) Basophils # (Auto) 0.0 x10^3/uL (0.0-0.2) Allergies Allergies Coded Allergies Type Severity Reaction Last Updated Verified No Known Drug Allergies 08/11/16 No Disposition/Orders: Other (to hospice) Patient Instructions d/c planning 26 min KENNEY BOX MD January 29, 2019 13:33
[2019-01-29] MEDS ORDERED: POLY17PO28 PO (13:35)
[2019-01-29] MEDS ORDERED: ACET325T9 PO (13:35)
[2019-01-29] MEDS ORDERED: AMLO5TAB10 PO (13:35)
--- NOTE | 2019-01-29 13:37 | SNU/HH DC ---
DISCHARGE ORDERS DISCHARGE INFORMATION: FINAL DIAGNOSIS Problems Medical Problems: (1) Altered level of consciousness Status: Acute (2) Dementia Status: Acute (3) Hypertensive urgency Status: Acute CONDITION ON DISCHARGE: Guarded CODE STATUS: Code Status: DNR/DNI [facility]: SNF STAY <30 DAYS: No HOSPICE: HOSPICE: Yes HOSPICE EVAL & TREAT: Yes LTAC: ADMIT TO LTAC: No POST DISCHARGE ORDERS: ACTIVITY ORDERS: Activity as tolerated DIET AFTER DISCHARGE: Cardiac CHECKS AFTER DISCHARGE: CHECKS AFTER DISCHARGE: Check blood press - daily FOLLOW-UP: ADDITIONAL FOLLOW-UP: as needed TREATMENT/EQUIPMENT ORDERS: ADAPTIVE EQUIPMENT NEEDED: None, Front wheeled walker Physical Therapy For: Evalulation/Treatment Occupational Therapy For: Evaluation/Treatment DISCHARGE MEDICATIONS: Home Meds Active Scripts Polyethylene Glycol 3350 (POLYETHYLENE GLYCOL 3350) 17 Gm Powd.pack, 17 GM PO DAILY for constipation for 10 Days, #10 PKT Prov:KENNEY BOX MD 01/29/19 Acetaminophen (TYLENOL) 325 Mg Tablet, 650 MG PO PRN Q6HRS PRN for TEMP > 100.4F for 10 Days, #30 TAB Prov:KENNEY BOX MD 01/29/19 Amlodipine Besylate (AMLODIPINE BESYLATE) 5 Mg Tablet, 5 MG PO DAILY for bp for 14 Days, #14 TAB Prov:KENNEY BOX MD 01/29/19 Lisinopril (LISINOPRIL) 40 Mg Tablet, 40 MG PO DAILY for htn MDD 1, #30 TAB Prov:KAYLIN VERGARA MD 01/19/19 Lidocaine (Lidocaine) 1 Each Adh..patch, 1 PATCH TD DAILY for pain msk MDD 1, #10 PATCH Prov:KAYLIN VERGARA MD 01/19/19 Ascorbic Acid (VITAMIN C) 500 Mg Tablet, 500 MG PO DAILY for mvi MDD 1, #30 TAB Prov:KAYLIN VERGARA MD 01/19/19 Aspirin (ASPIRIN EC) 81 Mg Tablet.dr, 81 MG PO DAILYWBKFT for primary prevention MDD 1, #60 TAB.SR Prov:KAYLIN VERGARA MD 01/19/19 Hydrocodone Bit/Acetaminophen (HYDROCODONE-APAP 5-325 ) 1 Tab Tablet, 1 TAB PO PRN Q4HRS PRN for MODERATE PAIN, SEVERE PAIN MDD 1, #20 TAB Prov:KAYLIN VERGARA MD 01/19/19 Metoprolol Succinate (METOPROLOL SUCCINATE ( XL )) 25 Mg Tab.er.24h, 12.5 MG PO DAILY for htn, svt,.now christina MDD 1, #60 TAB.SR Prov:KAYLIN VERGARA MD 01/19/19 Reported Medications Cholecalciferol (Vitamin D3) (VITAMIN D3) 1,000 Unit Tablet, 2000 UNIT PO DAILY 02/06/16 Sertraline Hcl (SERTRALINE HCL) 100 Mg Tablet, 100 MG PO DAILY for ANTI- DEPRESSANT, TAB 0 Refills 01/19/15 Memantine Hcl (NAMENDA) 10 Mg Tablet, 28 MG PO DAILY, TAB 01/19/15 KENNEY BOX MD January 29, 2019 13:37
== END 2019-01-29 11:41 | disposition hospice, inpatient (51) | DRG 64 ==
LOC: ER 11:58 → 2 NORTH 13:34
PROVIDERS: ADMIT Internal Medicine; ATTEND Internal Medicine
DX: I63.9 Cerebral infarction, unspecified (principal); G93.41 Metabolic encephalopathy; M62.82 Rhabdomyolysis; E44.0 Moderate protein-calorie malnutrition; Z68.1 Body mass index [BMI] 19.9 or less, adult; I16.1 Hypertensive emergency; E87.2 Acidosis; I24.8 Other forms of acute ischemic heart disease; I11.0 Hypertensive heart disease with heart failure; I50.9 Heart failure, unspecified; E86.0 Dehydration; G30.9 Alzheimer's disease, unspecified; F02.80 Dementia in other diseases classified elsewhere, unspecified severity, without behavioral disturbance, psychotic disturbance, mood disturbance, and anxiety; M81.0 Age-related osteoporosis without current pathological fracture; E78.5 Hyperlipidemia, unspecified; F41.9 Anxiety disorder, unspecified; M19.90 Unspecified osteoarthritis, unspecified site; Z96.642 Presence of left artificial hip joint; Z66 Do not resuscitate; Z51.5 Encounter for palliative care; R32 Unspecified urinary incontinence; M50.81 Other cervical disc disorders, high cervical region; Z79.82 Long term (current) use of aspirin; Z87.440 Personal history of urinary (tract) infections; Z90.49 Acquired absence of other specified parts of digestive tract; Z91.81 History of falling
CPT/HCPCS: 36415; 70450; 70551; 71045; 80048; 80053; 81001; 82550; 82962; 83605; 83735; 83880; 84484; 85007; 85025; 87040; 93005; 93308; 93880; 95816; 96361; 96374; 96375; J1650; J3490; J7030; P9612; 92610; 97110; 97116; 97530; 99285-25